=== PATIENT | female | born 1985 | race Caucasian/White ===

== ENCOUNTER 2024-11-16 15:39 | Outpatient (OUT) | payer OTHER, SELFPAY ==
--- NOTE | 2024-11-16 15:48 | US_ITS ---
[address] [address] Patient Name: DOROTHEA SMILEY MRN: [id number] date: 1985 Sex: F Assigned Patient Location: [place] Current Patient Location: Accession/Order Number: [id number] Exam Date: 11/16/2024 16:05 Report Date: 11/17/2024 06:13 At the request of: SCOTT FRANKLIN Procedure: US pelvis transvaginal EXAMINATION: US pelvis transvaginal HISTORY: Ovulation Pain [; right pelvic pain COMPARISON: Ultrasound pelvis 07/22/2022 TECHNIQUE: Transabdominal and/or transvaginal sonographic examination was performed as indicated by examination type. FINDINGS: UTERUS: Normal size and appearance. Uterus size: 9.7 x 5.4 x 6.0 cm ENDOMETRIUM: Normal homogeneous appearance. Endometrial thickness: 11 mm RIGHT OVARY: Contains a hypoechoic, slightly irregular 2.1 cm cyst with some internal echoes and surrounding hypervascularity. Trace amount of free fluid within right adnexa. Duplex Doppler demonstrates normal waveform and flow; resistive index 0.5. Ovary size: 4.5 x 3.3 x 3.6 cm LEFT OVARY: Prior oophorectomy CUL-DE-SAC: Unremarkable. No significant free fluid. BLADDER: Unremarkable. OTHER: None. US/US pelvis transvaginal IMPRESSION: 1. Nonspecific right ovarian cyst; corpus lutein cyst from very early versus collapsing complex cyst. Consider follow-up ultrasound evaluation in 6 weeks to document regression. Electronically authenticated by: ISSA CADENA Date: 11/17/2024 06:13
== END 2024-11-16 15:40 | disposition home or self-care (01) ==
LOC: US 15:42
PROVIDERS: Visit Provider Obstetrics & Gynecology
DX: N94.0 Mittelschmerz (principal); N83.291 Other ovarian cyst, right side
CPT/HCPCS: 76830

== ENCOUNTER 2024-11-17 15:10 | Outpatient (OUT) | payer OTHER, SELFPAY ==
[2024-11-17 15:50] LABS: HCG Quantitative <1 mIU/mL
== END 2024-11-17 15:11 | disposition home or self-care (01) ==
LOC: LAB 15:12
PROVIDERS: Visit Provider Obstetrics & Gynecology
DX: R10.2 Pelvic and perineal pain (principal); N92.6 Irregular menstruation, unspecified; R10.84 Generalized abdominal pain; R19.7 Diarrhea, unspecified
CPT/HCPCS: 36415; 84702

== ENCOUNTER 2024-12-15 10:59 | Outpatient (OUT) | payer OTHER, SELFPAY ==
--- NOTE | 2024-12-15 11:43 | P.GSHP_ITS ---
History of Present Illness History of Present Illness Chief complaint: request for sterilization, pelvic pain Narrative: Patient presents for presurgical testing. The patient reports pelvic pain with ovulation and a desire for sterilization. The patient denies abdominal pain at the present time. She denies nausea, vomiting, dysuria, hematuria, or any other complaints. Review of Systems ROS Narrative REVIEW OF SYSTEMS: Negative except as stated in HPI, ten or more systems reviewed. Constitutional: No fever, chills, weakness ENT: No sore throat or epistaxis Cardiovascular: No edema, chest pain, palpitations, or activity intolerance Respiratory: No shortness of breath, cough, or wheezing Musculoskeletal: No joint pain or swelling Genitourinary: No dysuria or hematuria Neurological: No numbness, tingling, weakness, or headache Psychiatric: No mood changes [facility] Medical History (Updated 12/15/24 @ 11:22 by Padmini Bello NP) History of blood transfusion ?Z92.89 - Personal history of other medical treatment (ICD-10) PTSD (post-traumatic stress disorder) ?F43.10 - Post-traumatic stress disorder, unspecified (ICD-10) MVP (mitral valve prolapse) ?I34.1 - Nonrheumatic mitral (valve) prolapse (ICD-10) Postoperative nausea and vomiting ?R11.2 - Nausea with vomiting, unspecified (ICD-10) ?Z98.890 - Other specified postprocedural states (ICD-10) Delayed recovery from anesthesia Insulin resistance ?E88.819 - Insulin resistance, unspecified (ICD-10) Narcolepsy ?G47.419 - Narcolepsy without cataplexy (ICD-10) Lactose intolerance ?E73.9 - Lactose intolerance, unspecified (ICD-10) Abdominal pain ?R10.9 - Unspecified abdominal pain (ICD-10) Pelvic pain ?R10.2 - Pelvic and perineal pain (ICD-10) Request for sterilization ?Z30.2 - Encounter for sterilization (ICD-10) Surgical History (Updated 12/15/24 @ 11:22 by Padmini Bello NP) S/P unilateral salpingo-oophorectomy ?Z90.721 - Acquired absence of ovaries, unilateral (ICD-10) H/O umbilical hernia repair ?Z98.890 - Other specified postprocedural states (ICD-10) ?Z87.19 - Personal history of other diseases of the digestive system (ICD-10) History of breast augmentation ?Z98.82 - Breast implant status (ICD-10) History of section ?Z98.891 - History of uterine scar from previous surgery (ICD-10) History of tubal ligation ?Z98.51 - Tubal ligation status (ICD-10) History of laparoscopy ?Z98.890 - Other specified postprocedural states (ICD-10) Family History (Updated 12/15/24 @ 11:19 by Padmini Bello NP) Other Family history of diabetes mellitus Family history of hypertension Social History (Updated 12/15/24 @ 11:17 by Padmini Bello NP) Within the past year, how often did you have a drink containing alcohol: never Score interpretation: A score less than 3 is consistent with normal alcohol consumption. Smoking status: Never smoker Non-prescribed substance use: cannabis (any form) Previous occupational history: yoga Highest level of school completed/degree received: high school graduate Meds Home Medications and Allergies Home Medications ?Medication ?Instructions ?Recorded ?Confirmed ?Type dextroamphetamine-amphetamine ER 20 mg PO DAILY 12/15/24 12/15/24 History 20 mg 24hr capsule,extend release fluoxetine 10 mg capsule 10 mg PO QPM 12/15/24 12/15/24 History metformin 500 mg tablet,extended 500 mg PO DAILY 12/15/24 12/15/24 History release 24 hr Allergies Allergy/AdvReac Type Severity Reaction Status Date / Time lactose AdvReac Nausea Verified 12/15/24 11:15 Exam Narrative Exam Narrative: Constitutional: Awake, alert, comfortable, well-appearing, nontoxic, interactive, vital signs as charted Head: Normocephalic, atraumatic Eyes: Conjunctiva and lids normal to inspection ENT: Naris patent, posterior oropharynx clear, oral mucosa moist Neck: Supple, normal appearance, normal range of motion, no meningeal signs, no lymphadenopathy Respiratory: No respiratory distress, breath sounds clear Cardiovascular: Regular rate and rhythm, strong and regular heart tones Abdomen: Nontender, normal bowel sounds, soft, no CVA tenderness Musculoskeletal: Normal gait, no swelling or edema Skin: No rashes or induration, no lesions, only visible skin inspected Neuro: No neurological deficits, normal sensation Psychiatric: Oriented ?3, normal affect Assessment and Plan Assessment and Plan (1) Request for sterilization: (2) Pelvic pain: Plan Robot-assisted laparoscopic salpingectomy and removal of Filshie clip scheduled with Dr. Mireles December 24, 2024.
== END 2024-12-15 11:00 | disposition home or self-care (01) ==
LOC: PST 10:59
PROVIDERS: Visit Provider Obstetrics & Gynecology
DX: Z01.818 Encounter for other preprocedural examination (principal); R10.2 Pelvic and perineal pain
CPT/HCPCS: G0463

== ENCOUNTER 2024-12-24 06:08 | Day surgery (SDC) | payer OTHER, SELFPAY ==
[2024-12-15 11:33] VITALS: BP 130/84; PULSE 85; TEMP 36.3; O2SAT 99; BMI 28.3
[2024-12-24] VITALS (10 sets, daily range): BP systolic 97–144; BP diastolic 57–87; PULSE 70–93; TEMP 36.3–36.7; O2SAT 98–100; BMI 28.3
--- OUTSIDE RECORDS SUMMARY | 2024-12-24 06:13 | XMS_ITS | CCD ---
Author Organization [facility] Care Team Providers Care Chainstitch Seat Joiner Name Role Phone Unavailable Unavailable Unavailable Duc, Jadiel M Unavailable Unavailable Duc, Jadiel M Unavailable Unavailable Duc, Jadiel M Unavailable Unavailable Baker, Jadiel M Unavailable Unavailable Duc, Jadiel M Unavailable Unavailable Baker, Jadiel M Unavailable Unavailable CandidoSeanYajaira S Unavailable Unavailable Candido Yajaira S Unavailable Unavailable FELICIA MOURA Primary Care Unavailable Unavailable Primary Care Provider UnavailCAROL Wan Unavailable RADHA KEN Unavailable WILBER RACHEL Unavailable REQUEST, NONE LISTED Primary Care Unavaila jese CADENA, DR ISSA Bowens Consulting Unavailable ALINE, DR CHAVEZ Attending Unavailable ALINE, DR CHAVEZ Admitting Unavailable TITI PINA Unavailable CHRISTOS JACKMAN Unavailable LINCOLN ANGEL Unavailable ROSLYN RODRIGUEZ Unavailable MADHAVI CHRISTIAN Unavailable NON STAFF Primary Care Provider UnavailMD Garo Ordonez Attending Provider RICHY Rodriguez Primary Care Provider MD Garo Finley Attending Provider [phone] Roslyn Rodriguez Primary Care Unavailable Garo Finley Admitting Unavailable Garo Finley Attending Unavailable NON STAFF Primary Care Unavailable Garo Finley Admitting Unavailable Garo Finley Attending Unavailable Unavailable Primary Care Provider UnavailMADALYN Drake Attending Unavailable OMID MIRELES Attending Unavailable OMID MIRELES Referring Unavailable Allergies Allergy Classification Reported Allergen(s) Allergy Type Date of Onset Reaction(s) Facility (2 sources) lactose; Translations: [Unknown] Propensity to adverse reactions to drug 6 [facility] Work Phone: (6 sources) Lactose (non-medical use) Propensity to adverse reactions 6 [facility] Medications Current Medications Medication Drug Class(es) Dates Sig (Normalized) Sig (Original) 24 hr amphetamine aspartate 5 mg / amphetamine sulfate 5 mg / dextroamphetamine saccharate 5 mg / dextroamphetamine sulfate 5 mg extended release oral capsule (20 sources) Central Nervous System Stimulant Start: 11-08-2024 take 1 capsule by mouth every twenty-four hours Amphetamine-Dext roamphet ER 20 MG 1 capsule in the morning Orally Once a day Oct, Active Start: 03-24-2024 End: 11-22-2024 take 1 capsule by mouth once daily in the morning Adderall XR 30 MG 24 hr capsule Take 1 capsule by mouth once a day IN THE MORNING. 04/02/2024 11/22/2024 Discontinued Start: 07-18-2023 take 1 capsule by mo ut every twenty-four hours Adderall XR 30 MG 1 capsule in the morning Orally Once a day Mar, Active Start: 05-23-2023 take 1 capsule by mo uth every twenty-four hours Adderall XR 20 MG 1 capsule in the morning Orally Once a day for 30 days May, Active Start: 04-16-2023 take 1 capsule by mo uth every twenty-four hours Adderall XR 20 MG 1 capsule in the morning Orally Once a day for 30 days March, Active Start: 01-27-2023 take 1 capsule by mo ut every twenty-four hours Adderall XR 20 MG 1 capsule in the morning Orally Once a day for 30 days Jan, Active Start: 11-12-2022 take 1 capsule by mo uth every twenty-four hours Adderall XR 20 MG 1 capsule in the morning Orally Once a day for 30 days Oct, Not-Taking armodafinil 250 mg oral tabl et (4 sources) Start: 08-03-2024 Armodafinil Ac tive 250 MG PO Every morning August 03, 2024 12:00am To 1/2 pill for the first 4 days then increase to a whole pill if tolerated take 1 tablet by roselia th every twenty-four hours Armodafinil 250 MG 1 tablet in the morning Orally Once a day Active atomoxetine 40 mg oral capsule (4 sources) Norepinephrine Reuptake Inhibitor Start: 12-13-2022 take 1 capsule by mouth every twenty-four hours Strattera 40 MG 1 capsule in the morning Orally Once a day for 30 day(s) Dec, Active Breast Pump Device (1 source) Start: 09-18-2020 Breast Pump Device by Miscellaneous route as needed 1 Device 0 09/18/2020 Active buPROPion hydrochloride 75 mg oral tablet (7 sources) Aminoketone Start: 04-09-2024 End: 11-22-2024 take 1 tablet by mouth once daily buPROPion (Wellbutrin) 75 MG tablet Take 75 mg by mouth Daily 04/09/2024 11/22/2024 Discontinued FLUoxetine 10 mg oral capsule (8 sources) Serotonin Reuptake Inhibitor Start: 11-08-2024 take 1 capsule by mouth once daily FLUoxetine (PROzac) 10 MG capsule Take 10 mg by mouth Daily 11/08/2024 Active fluticasone propionate 0.05 mg/actuat metered dose nasal spray (1 source) Corticosteroid Start: 10-06-2020 fluticasone propionate (FLONASE) 50 mcg/actuation nasal spray 2 Sprays 0 10/06/2020 Active metaxalone 800 mg oral tablet (1 source) Start: 10-06-2020 metaxalone (SKELAXIN) 800 mg tablet 800 mg 0 10/06/2020 Active 24 hr metFORMIN hydrochloride 500 mg extended release oral tablet (3 sources) Biguanide Start: 11-22-2024 End: 12-22-2024 take 1 tablet by mouth every twenty-four hours in the morning metFORMIN XR (Glucophage-XR) 500 MG 24 hr tablet Indications: Pelvic pain in female , Generalized abdominal pain Take 1 tablet (500 mg) by mouth in the morning and 1 tablet (500 mg) before bedtime. Do not crush, chew, or split.. 60 tablet 6 11/22/2024 12/22/2024 Active Zbevygbq-Jq-Fvy-Fe -FA () Tablet (2 sources) Start: 05-29-2020 take 1 tablet by mouth once daily Nbhpmqhq-Nc-Axh-F e-FA () Tablet Indications: Take 1 Tab by mouth daily at 6pm 30 Tab 11 05/29/2020 Active sertraline 25 mg oral tablet (20 sources) Serotonin Reuptake Inhibitor Start: 08-04-2024 End: 11-22-2024 take 3 tablets by mouth once daily sertraline (Zoloft) 25 MG tablet TAKE 3 TABLETS BY MOUTH once a day 08/04/2024 11/22/2024 Discontinued Start: 06-10-2024 Sertraline Act paola 75 MG PO June 10, 2024 12:00am Start: 04-21-2020 take 1 tablet by roselia th once daily sertraline (ZOLOFT) 50 mg tablet Take 1 Tab by mouth daily 90 Tab 2 04/21/2020 Active take 3 tablets by mo uth every twenty-four hours Sertraline HCl 25 MG 3 tablets Orally Once a day Active take 3 tablets by mo uth every twenty-four hours take 1 tablet by roselia th every twenty-four hours Zoloft 100 MG 1 tablet Orally Once a day for 5 days pt is traveling and forgot meds this is to cover her while traveling Active Completed/Discontinued Medications Medication Drug Class(es) Dates Sig (Normalized) Sig (Original) acetaminophen 500 mg oral tablet (2 sources) Start: 09-28-2020 End: 09-28-2020 take 1 tablet by mouth every six hours as needed acetaminophen (TYLENOL EXTRA STR) tablet 1,000 mg acetaminophen (T YLENOL) 650 mg suppository Insert 1 Suppository rectally every 6 hours 0 Active modafinil 200 mg oral tablet (2 sources) Sympathomimetic-like Agent Start: 07-20-2024 End: 08-03-2024 take 200 mg by mouth once daily Modafinil Discontinued 200 MG PO Daily 30 July 20, 2024 12:00am August 03, 2024 4:44pm (17 sources) Not-Taking Active Problems Active Problems Problem Classification Problem Date Documented Da te Episodic/Chronic Abdominal pain (20 sources) Pelvic and perineal pain; Translations: [Pain in female pelvis] Onset: 07-22-2022 Episodic Anxiety disorders (20 sources) Posttraumatic stress disorder; Translations: [Post-traumatic stress disorder, unspecified] Onset: 03-22-2022 Resolved: 03-22-2022 Chronic Blindness and vision defects (20 sources) Bilateral myopia of eyes; Translations: [Myopia, bilateral] Episodic Disorders of teeth and jaw (3 sources) Chronic gingivitis, plaque induced Onset: 04-25-2022 Resolved: 04-25-2022 Chronic Disorders of teeth and jaw (20 sources) Dental caries, unspecified; Translations: [Dental caries on smooth surface penetrating into pulp] Onset: 04-25-2022 Resolved: 06-11-2022 Episodic Headache; including migraine (3 sources) Headache; Translations: [Headache in , antepartum, third trimester] Onset: 09-28-2020 09-28-2020 Episodic Miscellaneous mental health disorders (18 sources) Dream anxiety disorder; 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-2024 Chronic Other complications of (2 sources) Multigravida of advanced maternal age; Translations: [AMA (advanced maternal age) multigravida 35+] Onset: 09-20-2020 09-20-2020 Episodic Other endocrine disorders (1 source) Polyglandular dysfunction, unspecified; Translations: [Polyglandular dysfunction, unspecified] Onset: 11-30-2024 Chronic Other endocrine disorders (2 sources) Disorder of endocrine system; Translations: [Endocrine disorder, unspecified] 11-22-2024 Episodic Other gastrointestinal disorders (2 sources) Diarrhea; Translations: [Diarrhea, unspecified] 11-18-2024 Episodic Other hematologic conditions (4 sources) H/O: anemia - iron deficient; Translations: [Personal history of diseases of the blood and blood-forming organs and certain disorders involving the immune mechanism] 06-10-2024 Episodic Other hereditary and degenerative nervous system conditions (4 sources) Restless legs; Translations: [Restless legs syndrome] 06-10-2024 Chronic Other hereditary and degenerative nervous system conditions (3 sources) Restless legs syndrome; Translations: [Restless legs syndrome (RLS)] 06-10-2024 Chronic Other nervous system disorders (20 sources) Attention and concentration deficit; Translations: [Impaired concentration] Onset: 05-31-2022 Resolved: 05-31-2022 Chronic Other nervous system disorders (20 sources) Reduced concentration; Translations: [Attention and concentration deficit] Chronic Other nervous system disorders (4 sources) Narcolepsy without cataplexy ; 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] 06-10-2024 Chronic Other nervous system disorders (6 sources) Narcolepsy without cataplexy; Translations: [Narcolepsy, without cataplexy] Onset: 09-20-2024 06-10-2024 Chronic Other nervous system disorders (4 sources) Impaired cognition; Translations: [Other symptoms and signs involving cognitive functions and awareness] 06-10-2024 Episodic Other nutritional; endocrine; and metabolic disorders (20 sources) Obesity; Translations: [Obesity, unspecified] Chronic Other nutritional; endocrine; and metabolic disorders (1 source) Obesity, unspecified; Translations: [Obesity] Chronic Other screening for suspected conditions (not mental disorders or infectious disease) (1 source) Encounter for screening for dental disorders Episodic Residual codes; unclassified (4 sources) Sleep paralysis; Translations: [Other sleep disorders] 06-10-2024 Chronic Residual codes; unclassified (5 sources) Other sleep disorders; Translations: [Sleep related movement disorder, unspecified] 06-10-2024 Chronic Residual codes; unclassified (3 sources) Gestation period, 33 weeks; Translations: [33 weeks gestation of ] Onset: 09-28-2020 09-28-2020 Episodic Residual codes; unclassified (17 sources) Insomnia; Translations: [Insomnia, unspecified] Episodic Residual codes; unclassified (17 sources) Disturbance in sleep behavior; Translations: [Sleep disorder, unspecified] Episodic Screening and history of mental health and substance abuse codes (20 sources) Depression screening positive; Translations: [Encounter for screening for depression] Episodic Unclassified (2 sources) H/O: blood transfusion; Translations: [History of blood transfusion] Onset: 12-01-2016 09-18-2020 Past or Other Problems Problem Classification Problem Date Documented Date Episodic/Chronic Malaise and fatigue (1 source) Other fatigue; Translations: [Other fatigue] Onset: 06-10-2024 Episodic Other complications of (3 sources) High risk ; Translations: [Supervision of high-risk of elderly multigravida] Onset: 04-20-2020 09-28-2020 Episodic Other complications of (3 sources) Uterine scar from previous surgery in , childbirth and the puerperium; Translations: [Uterine scar from previous delivery] Onset: 04-20-2020 09-28-2020 Episodic Other connective tissue disease (1 source) Ganglion of wrist; Translations: [Ganglion cyst of wrist] Onset: 07-17-2016 07-17-2016 Episodic Other female genital disorders (3 sources) H/O: premature delivery; Translations: [Hx of delivery, currently ] Onset: 04-20-2020 09-28-2020 Episodic Other hematologic conditions (4 sources) Personal history of diseases of the blood and blood-forming organs and certain disorders involving the immune mechanism; Translations: [Personal history of diseases of blood and blood-forming organs] Onset: 06-10-2024 06-10-2024 Episodic Residual codes; unclassified (6 sources) Personal history of other complications of , childbirth and the puerperium; Translations: [History of placenta abruption] Onset: 04-20-2020 09-28-2020 Episodic Results Test Name Value Interpretation Reference Range Facility C peptide post fast [Mass/Vo l]on 11-30-2024 C-Peptide, S 1.9 ng/mL Normal 1.1 - 4.4 [facility] Comment on above: Result Comment: NOTE ADDITIONAL INFORMATION Reference interval applies to fasting patients. Test Performed by: [facility] [address] [place] [address] Carcass Washer: Svetlana Morocho Ph.D.; CLIA# [id number] Performed By: #### 2 345-7, 2839-9, 3016-3, HA1C, 3024-7, 3051-0, 79437-9, 2276-4, 2243-4, THYRAB #### [facility] ([id number]) [address] [place] [address], [address] [place] [address] #### 63910-6, 61464-7, 35473-2, 2258-2, 3052-8, GO #### [facility] ([id number]) [address] [place] [address], [place] [address] Cortisol [Mass/Vol]on 2023 CORTISOL 8.7 ug/dL Normal [facility] Comment on above: Result Comment: Due to the diurnal variation of cortisol levels in normal subjects, all cortisol measurements should be referenced to the time of day of sample collection. AM Cortisol Age>=6 6.7-22.4 ug/dL PM Cortisol Age>=6 <10 ug/dL Performed By: #### 2 345-7, 2839-9, 3016-3, HA1C, 3024-7, 3051-0, 41077-8, 2276-4, 2243-4, THYRAB #### [facility] ([id number]) [address] [facility], [address] [place] [address] #### 32001-3, 07118-0, 57186-3, 2258-2, 3052-8, GO #### [facility] ([id number]) [address] [place] [address] DHEA-S [Mass/Vol]on 11-30-20 24 DHEA S 227 ug/dL Normal 23-266 [facility] Comment on above: Performed By: #### 2 345-7, 2839-9, 3016-3, HA1C, 3024-7, 3051-0, 91864-5, 2276-4, 2243-4, THYRAB #### [facility] ([id number]) [address], [address] [place] [address] #### 98634-2, 19642-5, 76158-6, 2258-2, 3052-8, GO #### [facility] ([id number]) [address] [place] [address] E1 [Mass/Vol]on 11-30-2024 Estrone, S 45 pg/mL Normal [facility] Comment on above: Result Comment: NOTE REFERENCE VALUE Premenopausal :17-200 Postmenopausal : 7-40 ADDITIONAL INFORMATION This test was developed and its performance characteristics determined by [facility] in a manner consistent with CLIA requirements. This test has not been cleared or approved by the U.S. Food and Drug Administration. Test Performed by: [facility] [address] [place] [address] Carcass Washer: Svetlana Morocho Ph.D.; CLIA# [id number] Performed By: #### 2 345-7, 2839-9, 3016-3, HA1C, 3024-7, 3051-0, 72267-8, 2276-4, 2243-4, THYRAB #### [facility] ([id number]) [address] [place] [address], [address] [place] [address] #### 99474-0, 76420-3, 71341-6, 2258-2, 3052-8, GO #### [facility] ([id number]) [address] [place] [address], [place] [address] E2 [Mass/Vol]on 11-30-2024 ESTRADIOL 36.7 pg/mL Normal [facility] Comment on above: Result Comment: NON- FEMALES Mid follicular: 25-115 pg/mL Ovulatory Peak: 32.1-517 pg/mL Mid Luteal: 36.5-246 pg/mL Post-Menopausal Females: <15.0-25.1 pg/mL (Not on hormone therapy) The Access Sensitive Estradiol assay results are not intended to be used to measure the effectiveness of exogeneous Estradiol supplementation, for example, when the patient is on hormone replacement therapy. The presence of estradiol drug analogues and their metabolites could have an impact on estradiol recovery when using this assay. Performed By: #### 2 345-7, 2839-9, 3016-3, HA1C, 3024-7, 3051-0, 60884-5, 2276-4, 2243-4, THYRAB #### [facility] ([id number]) [address] [place] [address], [address] [place] [address] #### 07540-2, 96213-1, 41247-7, 2258-2, 3052-8, GO #### [facility] ([id number]) [address] [place] [address] FERRITINon 11-30-2024 Ferritin [Mass/Vol] 22 ng/mL Normal 11-307 [facility] Comment on above: Performed By: #### 2 345-7, 2839-9, 3016-3, HA1C, 3024-7, 3051-0, 63436-5, 2276-4, 2243-4, THYRAB #### [facility] ([id number]) [address] [place] [address], [address] [place] [address] #### 91742-9, 85048-0, 05172-5, 2258-2, 3052-8, GO #### [facility] ([id number]) [address] [place] [address] FREE T3on 11-30-2024 Free T3 [Mass/Vol] 3.32 pg/mL Normal 2.50-3.90 [facility] Comment on above: Performed By: #### 2 345-7, 2839-9, 3016-3, HA1C, 3024-7, 3051-0, 20685-5, 2276-4, 2243-4, THYRAB #### [facility] ([id number]) [address] [place] [address], [address] [place] [address] #### 62859-3, 58169-9, 47242-2, 2258-2, 3052-8, GO #### [facility] ([id number]) [address] [place] [address] FREE T4on 11-30-2024 Free T4 [Mass/Vol] 0.94 ng/dL Normal 0.61-1.60 [facility] Comment on above: Performed By: #### 2 345-7, 2839-9, 3016-3, HA1C, 3024-7, 3051-0, 88463-9, 2276-4, 2243-4, THYRAB #### [facility] ([id number]) [address] [place] [address], [address] [place] [address] #### 61178-6, 95600-4, 01696-2, 2258-2, 3052-8, GO #### [facility] ([id number]) [address] [place] [address] GLUCOSEon 11-30-2024 Glucose [Mass/Vol] 93 mg/dL Normal 65-99 [facility] Comment on above: Performed By: #### 2 345-7, 2839-9, 3016-3, HA1C, 3024-7, 3051-0, 55555-6, 2276-4, 2243-4, THYRAB #### [facility] ([id number]) [address] [place] [address], [address] [place] [address] #### 71770-3, 94751-4, 26779-9, 2258-2, 3052-8, GO #### [facility] ([id number]) [address] [place] [address] GLUCOSE ([place])on 2023 Glucose [Mass/Vol] 93 mg/dL 65 - 99 mg/dL [facility] Comment on above: PERFORMED AT [facility] [address],[place] [address] [facility] HGB A1C (GLYCO-HGB)on 2023 Glucose [Mass/Vol] 100 mg/dL Normal [facility] Comment on above: Performed By: #### 2 345-7, 2839-9, 3016-3, HA1C, 3024-7, 3051-0, 94579-7, 2276-4, 2243-4, THYRAB #### [facility] ([id number]) [address] [place] [address], [address] [place] [address] #### 37965-7, 50380-6, 17839-2, 2258-2, 3052-8, GO #### [facility] ([id number]) [address] [place] [address] HbA1c (Bld) [Mass fraction] 5.1 % Normal 4.4-5.6 [facility] Comment on above: Result Comment: NOTE ADA Guidelines Result HgbA1c Normal : less than 5.7 % Prediabetes : 5.7 % to 6.4 % Diabetes : > 6.4 % Use with caution in patients with abnormal hemoglobin variants as the half-life of red blood cells and in vivo glycation rates are affected. Performed By: #### 2 345-7, 2839-9, 3016-3, HA1C, 3024-7, 3051-0, 05303-4, 2276-4, 2243-4, THYRAB #### [facility] ([id number]) [address] [facility], [address] [place] [address] #### 91146-4, 47204-0, 99620-0, 2258-2, 3052-8, GO #### [facility] ([id number]) [address] [place] [address] [place] [address] Insulin Qnon 11-30-2024 INSULIN 5.02 uIU/mL Normal 1.00-23.00 [facility] Comment on above: Result Comment: Ref. range is for FASTING NON-DIABETIC POPULATION. Performed By: #### 2 345-7, 2839-9, 3016-3, HA1C, 3024-7, 3051-0, 78299-4, 2276-4, 2243-4, THYRAB #### [facility] ([id number]) [address], [address] [place] [address] #### 14847-5, 63573-4, 43577-8, 2258-2, 3052-8, GO #### [facility] ([id number]) [address] [place] [address] [facility] ORDERon 024 TEST NAME FV125 CALCITRIOL 1,2 5 DIHYDROXYVITAMIN D Normal [facility] Comment on above: Performed By: #### 2 345-7, 2839-9, 3016-3, HA1C, 3024-7, 3051-0, 52116-9, 2276-4, 2243-4, THYRAB #### [facility] ([id number]) [address], [address] [place] [address] #### 83596-1, 36439-5, 35025-7, 2258-2, 3052-8, GO #### [facility] ([id number]) [address] [place] [address] TEST RESULT SEE COMMENTS 025 08:25 PM Normal [facility] Comment on above: Result Comment: NOTE Test Result Flag Unit RefValue --- CALCITRIOL 1,25 diOH VitD Vitamin D,1,25 (OH) 2, Total 44 pg/mL 18-72 Reference Ranges for Vitamin D, 1,25 (OH)2, Total pg/mL < 1 Year Not established 1-9 Years 31-87 10-13 Years 30-83 14-17 Years 19-83 > or = 18 Years 18-72 Vitamin D3, 1,25(OH)2 indicates both endogenous production and supplementation. Vitamin D2, 1,25(OH)2 is an indicator of exogenous sources, such as diet or supplementation. Interpretation and therapy are based on measurement of Vitamin D, 1,25 (OH)2, Total. Vitamin D3, 1,25 (OH) 2 44 pg/mL -- REFERENCE VALUE -- NO REFERENCE RANGE Vitamin D2, 1,25 (OH) 2 <8 pg/mL -- REFERENCE VALUE -- NO REFERENCE RANGE This test was developed and its analytical performance characteristics have been determined by [facility]. It has not been cleared or approved by FDA. This assay has been validated pursuant to the CLIA regulations and is used for clinical purposes. For additional information, please refer to http://education.[employer].awe.sm/faq/MFL372 (This link is being provided for informational/educational purposes only.) Test Performed by: [facility] [address] [place] [address] Performed By: #### 2 345-7, 2839-9, 3016-3, HA1C, 3024-7, 3051-0, 61677-8, 2276-4, 2243-4, THYRAB #### [facility] ([id number]) [address] [place] [address], [address] [place] [address] #### 46589-9, 85170-6, 89771-6, 2258-2, 3052-8, GO #### [facility] ([id number]) [address] [place] [address], [place] [address] Progesterone [Mass/Vol]on PROGESTERONE 0.5 ng/mL Normal [facility] Comment on above: Result Comment: FEMALES: 1st Tri: 4.7-50.7 ng/ml 2nd Tri: 19.4-45.3 ng/ml MENSTRUATING FEMALES: Follicular: 0.3-1.5 ng/ml Mid Luteal: 5.2-18.6 ng/ml [place]: <0.1-0.8 ng/ml Performed By: #### 2 345-7, 2839-9, 3016-3, HA1C, 3024-7, 3051-0, 47967-5, 2276-4, 2243-4, THYRAB #### [facility] ([id number]) [address] [place] [address], [address] [place] [address] #### 57805-1, 15693-8, 34214-8, 2258-2, 3052-8, GO #### [facility] ([id number]) [address] [place] [address], [place] [address] Serotonin (S) [Mass/Vol]on SEROTONIN 84 ng/mL Normal 50-220 [facility] Comment on above: Result Comment: NOTE TEST INFORMATION: Serotonin, Serum This test was developed and its performance characteristics determined by [facility]. It has not been cleared or approved by the US Food and Drug Administration. This test was performed in a CLIA certified laboratory and is intended for clinical purposes. Performed By: [facility] [address] [place] [address] Playroom Attendant: Shabbir Whiteside MD, PhD CLIA Number: [id number] Performed By: #### 2 345-7, 2839-9, 3016-3, HA1C, 3024-7, 3051-0, 24873-5, 2276-4, 2243-4, THYRAB #### [facility] ([id number]) [address], [address] [place] [address] #### 15229-6, 22869-3, 08787-1, 2258-2, 3052-8, GO #### [facility] ([id number]) [address] [place] [address] Sex hormone binding globulin [Moles/Vol]on 11-30-2024 SEX HORMONE BINDING GLOBULIN 45.4 nmol/L Normal 18.2-135.5 [facility] Comment on above: Result Comment: ---- PT TYPE AGE RANGE MALES 20-50Y 13.3-89.5 mmol/L FEMALES 20-46Y 18.2-135.5 mmol/L FEMALES POSTMENO 47-91Y 16.8-125.2 mmol/L Performed By: #### 2 345-7, 2839-9, 3016-3, HA1C, 3024-7, 3051-0, 74673-3, 2276-4, 2243-4, THYRAB #### [facility] ([id number]) [address] [facility] [facility] [facility] [address] [place] [address] #### 88771-1, 14778-4, 84042-6, 2258-2, 3052-8, GO #### [facility] ([id number]) [address] [place] [address] T3.reverse [Mass/Vol]on 11-02 T3 (Triiodothyronine), Reverse, S 22 ng/dL Normal 10-24 [facility] Comment on above: Result Comment: NOTE ADDITIONAL INFORMATION This test was developed and its performance characteristics determined by [facility] in a manner consistent with CLIA requirements. This test has not been cleared or approved by the U.S. Food and Drug Administration. Test Performed by: [facility] [address] [place] [address] Carcass Washer: Svetlana Morocho Ph.D.; CLIA# [id number] Performed By: #### 2 345-7, 2839-9, 3016-3, HA1C, 3024-7, 3051-0, 87243-2, 2276-4, 2243-4, THYRAB #### [facility] ([id number]) [address] [facility], [address] [place] [address] #### 65371-6, 60636-9, 54350-1, 2258-2, 3052-8, GO #### [facility] ([id number]) [address] [place] [address] THYROID ANTIBODIESon 024 Thyroglobulin Ab Qn [IU]/mL Normal <4.0 [facility] Comment on above: Performed By: #### 2 345-7, 2839-9, 3016-3, HA1C, 3024-7, 3051-0, 71603-6, 2276-4, 2243-4, THYRAB #### [facility] ([id number]) [address] [facility], [address] [place] [address] #### 86230-7, 69680-5, 99002-4, 2258-2, 3052-8, GO #### [facility] ([id number]) [address] [place] [address] TPO Ab Qn [IU]/mL Normal <10 [facility] Comment on above: Performed By: #### 2 345-7, 2839-9, 3016-3, HA1C, 3024-7, 3051-0, 69698-2, 2276-4, 2243-4, THYRAB #### [facility] ([id number]) [address] [facility], [address] [place] [address] #### 14709-4, 61401-3, 94328-8, 2258-2, 3052-8, GO #### [facility] ([id number]) [address] [place] [address] TSH Qnon 11-30-2024 TSH 0.74 uIU/mL Normal 0.49-4.67 [facility] Comment on above: Performed By: #### 2 345-7, 2839-9, 3016-3, HA1C, 3024-7, 3051-0, 72537-1, 2276-4, 2243-4, THYRAB #### [facility] ([id number]) [facility] [facility], [address] [place] [address] #### 33600-4, 69786-7, 36524-6, 2258-2, 3052-8, GO #### [facility] ([id number]) [address] [place] [address] Testosterone free and total panel [Mass/Vol]on 11-30-2024 Testosterone [Mass/Vol] 17 ng/dL Normal 8-60 [facility] Comment on above: Result Comment: NOTE ADDITIONAL INFORMATION Testing performed by Liquid Chromatography-Tandem Mass Spectrometry (LC-MS/MS). This test was developed and its performance characteristics determined by [facility] in a manner consistent with CLIA requirements. This test has not been cleared or approved by the U.S. Food and Drug Administration. Test Performed by: [facility] [address] [place] [address] [employer]cass Washer: Svetlana Morocho Ph.D.; CLIA# [id number] Performed By: #### 2 345-7, 2839-9, 3016-3, HA1C, 3024-7, 3051-0, 14766-8, 2276-4, 2243-4, THYRAB #### [facility] ([id number]) [address] [place] [address], [address] [place] [address] #### 44113-1, 20071-2, 29077-0, 2258-2, 3052-8, GO #### [facility] ([id number]) [address] [facility], [place] [address] TESTOSTERONE FREE 0.32 ng/dL Normal <0.13-0.98 [facility] Comment on above: Result Comment: NOTE ADDITIONAL INFORMATION This test was developed and its performance characteristics determined by [facility] in a manner consistent with CLIA requirements. This test has not been cleared or approved by the U.S. Food and Drug Administration. Performed By: #### 2 345-7, 2839-9, 3016-3, HA1C, 3024-7, 3051-0, 37146-7, 2276-4, 2243-4, THYRAB #### [facility] ([id number]) [address] [place] [address], [address] [place] [address] #### 10280-6, 65859-7, 18772-2, 2258-2, 3052-8, GO #### [facility] ([id number]) [address] [place] [address], [place] [address] Urinalysis macro (dipstick) panel (U)on 11-18-2024 Bilirubin, UA Negative Negative - 4(70) +++ mg/dL [facility] Blood, UA Negative Negative - 50 Seferino/mcL [facility] Clarity, UA Clear [facility] Healthcare Color, UA Yellow [facility] Glucose, UA Negative Negative - 2000(110) ++++ mg/dL [facility] Interpretation and review of laboratory results Abnormal [facility] Ketones, UA Negative Negative - 160(16) ++++ mg/dL [facility] Leukocytes, UA Positive Negative - 500+++ Lilliana/mcL [facility] Comment on above: small Nitrite, UA Negative Negative - Positive [facility] pH, UA 7 5 - 9 [facility] Protein, UA Negative Negative - 2000(20) ++++ mg/dL [facility] Spec Grav, UA 1.02 1 - 1.03 [facility] Urobilinogen, UA 0.2 0.2 - 12 mg/dL [facility] Iron [Mass/volume] in Serum or PlasmaOrdered By: Garo Finley on 06-10-2024 Iron [Mass/Vol] 111 ug/dL Normal 50-[address] [facility] Comment on above: Performed By: #### T SH3 wRFLX, FE and TIBC #### [address] Iron and TIBC Profileon 05-31 % Iron Saturation 31.7 % Normal 20-50 [facility] Comment on above: Performed By: #### T SH3 wRFLX, FE and TIBC #### [address] Total Iron Binding Capacity 350 ug/dL Normal 255-450 [facility] Comment on above: Performed By: #### T SH3 wRFLX, FE and TIBC #### [facility] [address] [place] [address] Iron binding capacity [Mass/ volume] in Serum or PlasmaOrdered By: Garo Finley on 06-10-2024 Iron binding capacity [Mass/Vol] 350 ug/dL 255-[address] [facility] Iron saturation [Mass Fracti on] in Serum or PlasmaOrdered By: Garo Finley on 06-10-2024 Iron saturation [Mass fraction] 31.7 % 20-[address] [facility] Thyroid Stim Hormone w/Rflxo n 06-10-2024 Thyroid Stim Hormone w/Rflx 0.78 u[iU]/mL Normal 0.45-5.33 [facility] Comment on above: Result Comment: PERF ORMED BY: [place] [address] PATHOLOGIST [employer]ITION[employer] MONITOR CAMI RAYA M.D. Performed By: #### T SH3 wRFLX, FE and TIBC #### [address] [place] [address] [facility] Thyrotropin [Units/volume] i n Serum or PlasmaOrdered By: Garo Finley on 06-10-2024 TSH Qn 0.78 m[IU]/L 0.45-5.[address] [facility] Transferrin [Mass/volume] in Serum or PlasmaOrdered By: Garo Finley on 06-10-2024 Transferrin [Mass/Vol] 250 mg/dL Normal 203-362 [facility] Comment on above: Performed By: #### T SH3 wRFLX, FE and TIBC #### [facility] [address] [place] [address] [facility] US PELVIS TRANSVAGon US PELVIS TRANSVAG EXAMINATION: US PELV IS TRANSVAG HISTORY: Pelvic and perineal pain ; chronic, intermittent right pelvic pain COMPARISON: No relevant comparison available. TECHNIQUE: Transabdominal and transvaginal sonographic examination. FINDINGS: UTERUS: Normal size and appearance. Small nabothian cysts within cervix. Uterus size: 8.5 6.0 x 5.3 cm ENDOMETRIUM: Normal homogeneous echotexture except for a few scattered punctate calcifications, likely dystrophic. Endometrial thickness: 12 mm RIGHT OVARY: Contains 2 adjacent cysts versus a septated cyst, 2.9 x 2.4 x 2.3 cm. Duplex Doppler demonstrates normal waveform and flow; resistive index 0.5. Ovary size: 5.0 x 2.6 x 2.7 cm LEFT OVARY: Not seen. CUL-DE-SAC: Small moderate free fluid in left adnexa and pelvic cul-de-sac, likely physiologic. BLADDER: Unremarkable. OTHER: None. IMPRESSION: 1. Right ovary contains 2 adjacent cysts versus a septated cyst which may contribute to patient's symptoms. Consider follow-up ultrasound evaluation 6 weeks to document resolution. Electronically authenticated by: ISSA CADENA Date: 2022-07-22 16:48 Normal [facility] COMPLETE BLOOD COUNT WITH DI FFERENTIALon 10-24-2020 BASOPHILS ABSOLUTE COUNT (10*3/UL) BY AUTOMATED COUNT 0.0 K/uL Normal 0.0-0.3 [facility] Comment on above: Performed By: #### L [id number] #### [facility] [address] [id number] Wilber Charles M.D. [employer] BASOPHILS RELATIVE PERCENT BY AUTOMATED COUNT 0.3 % Normal 0.0-2.0 [facility] Comment on above: Performed By: #### L [id number] #### [address] [address] Wilber Charles M.D. [employer] Eosinophils (Bld) [#/Vol] 0.2 10*3/uL Normal 0.0-0.5 [facility] Comment on above: Performed By: #### L [id number] #### [address] [address] Wilber Charles M.D. [employer] EOSINOPHILS RELATIVE PERCENT BY AUTOMATED COUNT 1.6 % Normal 0.0-5.0 [facility] Comment on above: Performed By: #### L [id number] #### [address] [address] Wilber Charles M.D. [employer] Erythrocyte distribution width (RBC) [Ratio] 13.4 % Normal <=15.0 [facility] Comment on above: Performed By: #### L [id number] #### [address] [address] Wilber Charles M.D. [employer] Hematocrit (Bld) [Volume fraction] 30.9 % Low 34.0-49.0 [facility] Comment on above: Performed By: #### L [id number] #### [address] [address] Wilber Charles M.D. [employer] Hemoglobin (Bld) [Mass/Vol] 10.7 g/dL Low 11.2-15.7 [facility] Comment on above: Performed By: #### L [id number] #### [address] [address] Wilber Charles M.D. [employer] Immature granulocytes (Bld) [#/Vol] 0.1 10*3/uL Normal 0.0-0.1 [facility] Comment on above: Performed By: #### L [id number] #### [address] [address] Wilber Charles M.D. [employer] Immature granulocytes/100 WBC (Bld) 0.6 % Normal <1.0 [facility] Comment on above: Performed By: #### L [id number] #### [address] [address] Wilber Charles M.D. [employer] LYMPHOCYTES ABSOLUTE COUNT (10*3/UL) BY AUTOMATED COUNT 1.2 K/uL Normal 0.9-4.1 [facility] Comment on above: Performed By: #### L [id number] #### [address] [address] Wilber Charles M.D. [employer] LYMPHOCYTES RELATIVE PERCENT BY AUTOMATED COUNT 12.2 % Low 14.0-51.0 [facility] Comment on above: Performed By: #### L [id number] #### [address] [address] Wilber Charles M.D. [employer] MCH (RBC) [Entitic mass] 32.2 pg Normal 26.0-34.0 [facility] Comment on above: Performed By: #### L [id number] #### [address] [address] Wilber Charles M.D. [employer] MCHC (RBC) [Mass/Vol] 34.6 g/dL Normal 30.7-35.5 [facility] Comment on above: Performed By: #### L [id number] #### [address] [address] Wilber Charles M.D. [employer] MCV (RBC) [Entitic vol] 93.1 fL Normal 80.0-100.0 [facility] Comment on above: Performed By: #### L [id number] #### [address] [address] Wilber Charles M.D. [employer] MEAN PLATELET VOLUME (FL) BY AUTOMATED COUNT 10.6 fL Normal 7.2-11.7 [facility] Comment on above: Performed By: #### L [id number] #### [address] [address] Wilber Charles M.D. [employer] MONOCYTES ABSOLUTE COUNT (10*3/UL) BY AUTOMATED COUNT 0.4 K/uL Normal 0.2-1.0 [facility] Comment on above: Performed By: #### L [id number] #### [address] [address] Wilber Charles M.D. [employer] MONOCYTES RELATIVE PERCENT BY AUTOMATED COUNT 4.4 % Normal 4.0-12.0 [facility] Comment on above: Performed By: #### L [id number] #### [address] [address] Wilber Charles M.D. [employer] NEUTROPHILS ABSOLUTE COUNT (10*3/UL) BY AUTOMATED COUNT 8.2 K/uL High 1.8-7.5 [facility] Comment on above: Performed By: #### L [id number] #### [address] [address] Wilber Charles M.D. [employer] NEUTROPHILS RELATIVE PERCENT BY AUTOMATED COUNT 80.9 % High 42.0-80.0 [facility] Comment on above: Performed By: #### L [id number] #### [address] [address] Wilber Charles M.D. [employer] PLATELETS (10*3/UL) BY AUTOMATED COUNT 209 K/uL Normal 140-400 [facility] Comment on above: Performed By: #### L [id number] #### [address] [address] Wilber Charles M.D. [employer] RBC (Bld) [#/Vol] 3.32 10*6/uL Low 3.95-5.26 [facility] Comment on above: Performed By: #### L [id number] #### [address] [address] Wilber Charles M.D. [employer] WBC (Bld) [#/Vol] 10.1 10*3/uL Normal 3.5-10.9 [facility] Comment on above: Performed By: #### L [id number] #### [address] [address] Wilber Charles M.D. [employer] WBC (Bld) [#/Vol] 0 /100 WBCs Normal <=0 [facility] Comment on above: Performed By: #### L [id number] #### [address] [address] Wilber Charles M.D. [employer] COMPLETE BLOOD COUNT WITH DI FFERENTIALon 10-23-2020 BASOPHILS ABSOLUTE COUNT (10*3/UL) BY AUTOMATED COUNT 0.0 K/uL Normal 0.0-0.3 [facility] Comment on above: Performed By: #### L [id number] #### [address] [address] Wilber Charles M.D. [employer] BASOPHILS RELATIVE PERCENT BY AUTOMATED COUNT 0.3 % Normal 0.0-2.0 [facility] Comment on above: Performed By: #### L [id number] #### [address] [address] Wilber Charles M.D. [employer] Eosinophils (Bld) [#/Vol] 0.1 10*3/uL Normal 0.0-0.5 [facility] Comment on above: Performed By: #### L [id number] #### [address] [address] Wilber Charles M.D. [employer] EOSINOPHILS RELATIVE PERCENT BY AUTOMATED COUNT 1.3 % Normal 0.0-5.0 [facility] Comment on above: Performed By: #### L [id number] #### [address] [address] Wilber Charles M.D. [employer] Erythrocyte distribution width (RBC) [Ratio] 13.0 % Normal <=15.0 [facility] Comment on above: Performed By: #### L [id number] #### [address] [address] Wilber Charles M.D. [employer] Hematocrit (Bld) [Volume fraction] 37.5 % Normal 34.0-49.0 [facility] Comment on above: Performed By: #### L AB406 #### [address] [address] Wilber Charles M.D. [employer] Hemoglobin (Bld) [Mass/Vol] 13.4 g/dL Normal 11.2-15.7 [facility] Comment on above: Performed By: #### L AB406 #### [address] [address] Wilber Charles M.D. [employer] Immature granulocytes (Bld) [#/Vol] 0.1 10*3/uL Normal 0.0-0.1 [facility] Comment on above: Performed By: #### L [id number] #### [address] [address] Wilber Charles M.D. [employer] Immature granulocytes/100 WBC (Bld) 0.6 % Normal <1.0 [facility] Comment on above: Performed By: #### L [id number] #### [address] [address] Wilber Charles M.D. [employer] LYMPHOCYTES ABSOLUTE COUNT (10*3/UL) BY AUTOMATED COUNT 2.2 K/uL Normal 0.9-4.1 [facility] Comment on above: Performed By: #### L [id number] #### [address] [address] Wilber Charles M.D. [employer] LYMPHOCYTES RELATIVE PERCENT BY AUTOMATED COUNT 21.7 % Normal 14.0-51.0 [facility] Comment on above: Performed By: #### L [id number] #### [address] [address] Wilber Charles M.D. [employer] MCH (RBC) [Entitic mass] 32.2 pg Normal 26.0-34.0 [facility] Comment on above: Performed By: #### L AB406 #### [address] [address] Wilber Charles M.D. [employer] MCHC (RBC) [Mass/Vol] 35.7 g/dL High 30.7-35.5 [facility] Comment on above: Performed By: #### L [id number] #### [address] [address] Wilber Charles M.D. [employer] MCV (RBC) [Entitic vol] 90.1 fL Normal 80.0-100.0 [facility] Comment on above: Performed By: #### L [id number] #### [address] [address] Wilber Charles M.D. [employer] MEAN PLATELET VOLUME (FL) BY AUTOMATED COUNT 10.8 fL Normal 7.2-11.7 [facility] Comment on above: Performed By: #### L [id number] #### [address] [address] Wilber Charles M.D. [employer] MONOCYTES ABSOLUTE COUNT (10*3/UL) BY AUTOMATED COUNT 0.7 K/uL Normal 0.2-1.0 [facility] Comment on above: Performed By: #### L [id number] #### [address] [address] Wilber Charles M.D. [employer] MONOCYTES RELATIVE PERCENT BY AUTOMATED COUNT 6.7 % Normal 4.0-12.0 [facility] Comment on above: Performed By: #### L [id number] #### [address] [address] Wilber Charles M.D. [employer] NEUTROPHILS ABSOLUTE COUNT (10*3/UL) BY AUTOMATED COUNT 7.1 K/uL Normal 1.8-7.5 [facility] Comment on above: Performed By: #### L [id number] #### [address] [address] Wilber Charles M.D. [employer] NEUTROPHILS RELATIVE PERCENT BY AUTOMATED COUNT 69.4 % Normal 42.0-80.0 [facility] Comment on above: Performed By: #### L [id number] #### [address] [address] Wilber Charles M.D. [employer] PLATELETS (10*3/UL) BY AUTOMATED COUNT 258 K/uL Normal 140-400 [facility] Comment on above: Performed By: #### L [id number] #### [address] [address] Wilber Charles M.D. [employer] RBC (Bld) [#/Vol] 4.16 10*6/uL Normal 3.95-5.26 [facility] Comment on above: Performed By: #### L [id number] #### [address] [address] Wilber Charles M.D. [employer] WBC (Bld) [#/Vol] 0 /100 WBCs Normal <=0 [facility] Comment on above: Performed By: #### L [id number] #### [address] [address] Wilber Charles M.D. [employer] WBC (Bld) [#/Vol] 10.3 10*3/uL Normal 3.5-10.9 [facility] Comment on above: Performed By: #### L [id number] #### [address] [address] Wilber Charles M.D. [employer] COMPREHENSIVE METABOLIC PANE [facility] 10-23-2020 Albumin [Mass/Vol] 3.5 g/dL Normal 3.5-5.2 [facility] Comment on above: Performed By: #### L [id number] #### [address] [address] Wilber Charles M.D. [employer] Albumin/Globulin [Mass ratio] 1.3 {ratio} Normal 0.8-2.6 [facility] Comment on above: Performed By: #### L [id number] #### [address] [address] Wilber Charles M.D. [employer] ALP [Catalytic activity/Vol] 155 U/L High 23-144 [facility] Comment on above: Performed By: #### L [id number] #### [address] [address] Wilebr Charles M.D. [employer] ALT [Catalytic activity/Vol] 12 U/L Normal 0-60 [facility] Comment on above: Performed By: #### L [id number] #### [address] [address] Wilber Charles M.D. [employer] Anion gap [Moles/Vol] 12 mmol/L Normal 5-15 [facility] Comment on above: Performed By: #### L [id number] #### [address] [address] Wilber Charles M.D. [employer] AST [Catalytic activity/Vol] 21 U/L Normal 0-46 [facility] Comment on above: Performed By: #### L [id number] #### [address] [address] Wilber Charles M.D. [employer] Bilirubin [Mass/Vol] 0.2 mg/dL Normal 0.0-1.2 [facility] Comment on above: Performed By: #### L [id number] #### [address] [address] Wilber Charles M.D. [employer] Calcium [Mass/Vol] 9.1 mg/dL Normal 8.5-10.5 [facility] Comment on above: Performed By: #### L [id number] #### [address] [address] Wilber Charles M.D. [employer] Chloride [Moles/Vol] 102 mmol/L Normal 96-110 [facility] Comment on above: Performed By: #### L [id number] #### [address] [address] Wilber Charles M.D. [employer] CO2 [Moles/Vol] 18 mmol/L Low 19-32 [facility] Comment on above: Performed By: #### L [id number] #### [address] [address] Wilber Charles M.D. [employer] Creatinine [Mass/Vol] 0.4 mg/dL Low 0.5-1.2 [facility] Comment on above: Performed By: #### L [id number] #### [address] [address] Wilber Charles M.D. [employer] GFR/1.73 sq M.predicted MDRD (S/P/Bld) [Vol rate/Area] 134 mL/min/1.73m*2 Normal >=60 [facility] Comment on above: Performed By: #### L [id number] #### [address] [address] Wilber Charles M.D. [employer] Globulin (S) [Mass/Vol] 2.8 g/dL Normal 1.9-3.6 [facility] Comment on above: Performed By: #### L [id number] #### [address] [address] Wilber Charles M.D. [employer] Glucose [Mass/Vol] 99 mg/dL Normal 70-99 [facility] Comment on above: Performed By: #### L [id number] #### [address] [address] Wilber Charles M.D. [employer] Potassium [Moles/Vol] 3.8 mmol/L Normal 3.4-5.3 [facility] Comment on above: Performed By: #### L [id number] #### [address] [address] Wilber Charles M.D. [employer] Protein [Mass/Vol] 6.3 g/dL Normal 6.0-8.3 [facility] Comment on above: Performed By: #### L [id number] #### [address] [address] Wilber Charles M.D. [employer] Sodium [Moles/Vol] 132 mmol/L Low 135-148 [facility] Comment on above: Performed By: #### L [id number] #### [address] [address] Wilber Charles M.D. [employer] Urea nitrogen [Mass/Vol] 9 mg/dL Normal 3-29 [facility] Comment on above: Performed By: #### L [id number] #### [address] [address] Wilber Charles M.D. [employer] Urea nitrogen/Creatinine [Mass ratio] 23 mg/mg Normal 7- [facility] Comment on above: Performed By: #### L [id number] #### [address] [address] Wilber Charles M.D. [employer] CULTURE, URINEon 10-23-2020 CULTURE, URINE TYPE DESCRIPTION URINE SOURCE DESCRIPTION CLEAN CATCH MIDSTREAM CULTURE NO GROWTH OF URINARY TRACT PATHOGENS. JASON INDICATIVE OF VAGINAL/URETHRAL CONTAMINATION PRESENT. PHYSICIANS MAY CONTACT MICROBIOLOGY AT [phone] IF FURTHER INFORMATION IS DESIRED. [facility] Comment on above: Performed By: #### L [id number] #### [address] [address] Wilber Charles M.D. [employer] LDHon 10-23-2020 LDH [Catalytic activity/Vol] 183 U/L Normal 0-260 [facility] Comment on above: Result Comment: Hemo lysis present. Performed By: #### L [id number] #### [address] [address] Wilber Charles M.D. [employer] RETYPE BLOOD BANKon 10-23-20 20 RETYPE BLOOD BANK BLOOD GROUP RETYPE: RETYPE BLOOD BANK: For Questions Contact Blood Bank Department [facility] Comment on above: Performed By: #### L [id number] #### [address] [address] Wilber Charles M.D. [employer] SARS COV 2 RNA, QL REAL TIME RT PCRon 10-23-2020 SARS COV2 RNA, QL REAL TIME RT PCR Not Detected Normal Not Detected, Invalid [facility] Comment on above: Performed By: #### L [id number] #### [address] [address] Wilber Charles M.D. [employer] SOURCE, COVID Nasopharynx. Normal [facility] Comment on above: Performed By: #### L [id number] #### [address] [address] Wilber Charles M.D. [employer] TYPE AND SCREENon 10-23-2020 TYPE AND SCREEN ABO GROUPING: A RH TYPE IN BLOOD: Positive ANTIBODY SCREEN: Negative SPECIMEN EXPIRATION DATE/TIME: [id number] Normal [facility] Comment on above: Performed By: #### L [id number] #### [address] [address] Wilber Charles M.D. [employer] URIC ACIDon 10-23-2020 Urate [Mass/Vol] 3.6 mg/dL Normal 2.5-7.0 [facility] Comment on above: Performed By: #### L [id number] #### [address] [address] Wilber Charles M.[employer]. [employer] URINALYSIS REFLEX TO CULTURE on 10-23-2020 Bacteria LM.HPF (Urine sed) [#/Area] None Seen Normal None Seen [facility] Comment on above: Performed By: #### L [id number] #### [address] [address] Wilber Charles M.D. [employer] BILIRUBIN URINE Negative Normal Negative [facility] Comment on above: Performed By: #### L [id number] #### [address] [address] Wilber Charles M.D. [employer] BLOOD IN URINE BY AUTOMATED TEST STRIP Negative Normal Negative [facility] Comment on above: Performed By: #### L [id number] #### [address] [place] [address] Wilber Charles M.D. [employer] Clarity (U) Clear Normal Clear [facility] Comment on above: Performed By: #### L [id number] #### [address] [place] [address] Wilber Charles M.D. [employer] Color (U) Yellow Normal Yellow, Colorless [facility] Comment on above: Performed By: #### L [id number] #### [address] [place] [address] Wilber Charles M.D. [employer] ERYTHROCYTES /HPF IN URINE SEDIMENT BY MICROSCOPY None Seen Normal None Seen, 0-2 [facility] Comment on above: Performed By: #### L [id number] #### [address] [place] [address] Wilber Charles M.D. [employer] GLUCOSE IN URINE BY AUTOMATED TEST STRIP Negative Normal Negative [facility] Comment on above: Performed By: #### L [id number] #### [address] [place] [address] Wilber Charles M.D. [employer] KETONE, URINE Negative Normal Negative, [facility] Comment on above: Performed By: #### L [id number] #### [address] [place] [address] Wilber Charles M.D. [employer] LEUKOCYTE ESTERASE, URINE BY AUTO TEST STRIP Small Abnormal Negative [facility] Comment on above: Performed By: #### L [id number] #### [address] [place] [address] Wilber Charles M.D. [employer] LEUKOCYTES /HPF IN URINE SEDIMENT BY MICROSCOPY 1-5 Normal None Seen, 1-5 [facility] Comment on above: Performed By: #### L [id number] #### [address] [address] Wilber Charles M.D. [employer] MUCUS, URINE Present Normal None Seen [facility] Comment on above: Performed By: #### L [id number] #### [address] [address] Wilber Charles M.D. [employer] Nitrite Auto test strip Ql (U) Negative Normal Negative [facility] Comment on above: Performed By: #### L [id number] #### [address] [address] Wilber Charles M.D. [employer] pH (U) 7.0 pH Units Normal 5.0-8.0 [facility] Comment on above: Performed By: #### L [id number] #### [address] [address] Wilber Charles M.D. [employer] Protein (U) [Mass/Vol] Negative Normal Negat paola, 10 [facility] Comment on above: Performed By: #### L [id number] #### [address] [place] [address] Wilber Charles M.D. [employer] SPECIFIC GRAVITY, URINE 1.008 Units Normal 1.005-1.030 [facility] Comment on above: Result Comment: Urin e specific gravity may be affected by X- ray dye, high glucose, high protein, and some chemotherapeutic drugs. Clinical correlation is recommended. Performed By: #### L [id number] #### [address] [place] [address] Wilber Charles M.D. [employer] SQUAMOUS EPITHELIAL CELLS, URINE 1-5 Normal None Seen, 1-5 [facility] Comment on above: Performed By: #### L [id number] #### [address] [place] [address] Wilber Charles M.D. [employer] UROBILINOGEN, URINE <2 Normal <2 [facility] Comment on above: Performed By: #### L [id number] #### [address] [place] [address] Wilber Charles M.D. [employer] COMPREHENSIVE METABOLIC PANE [facility] 10-19-2020 Albumin [Mass/Vol] 3.5 g/dL Normal 3.5-5.2 [facility] Comment on above: Performed By: #### L [id number] #### [address] [place] [address] Wilber Charles M.D. [employer] Albumin/Globulin [Mass ratio] 1.3 {ratio} Normal 0.8-2.6 [facility] Comment on above: Performed By: #### L [id number] #### [address] [place] [address] Wilber Charles M.D. [employer] ALP [Catalytic activity/Vol] 140 U/L Normal 23-144 [facility] Comment on above: Performed By: #### L [id number] #### [address] [place] [address] Wilber Charles M.D. [employer] ALT [Catalytic activity/Vol] 10 U/L Normal 0-60 [facility] Comment on above: Performed By: #### L [id number] #### [address] [place] [address] Wilber Charles M.D. [employer] Anion gap [Moles/Vol] 8 mmol/L Normal 5-15 [facility] Comment on above: Performed By: #### L [id number] #### [address] [place] [address] Wilber Charles M.D. [employer] AST [Catalytic activity/Vol] 15 U/L Normal 0-46 [facility] Comment on above: Performed By: #### L [id number] #### [address] [address] Wilber Charles M.D. [employer] Bilirubin [Mass/Vol] 0.2 mg/dL Normal 0.0-1.2 [facility] Comment on above: Performed By: #### L [id number] #### [address] [address] Wilber Charles M.D. [employer] Calcium [Mass/Vol] 9.1 mg/dL Normal 8.5-10.5 [facility] Comment on above: Performed By: #### L [id number] #### [address] [address] Wilber Charles M.D. [employer] Chloride [Moles/Vol] 103 mmol/L Normal 96-110 [facility] Comment on above: Performed By: #### L [id number] #### [address] [address] Wilber Charles M.D. [employer] CO2 [Moles/Vol] 24 mmol/L Normal 19-32 [facility] Comment on above: Performed By: #### L [id number] #### [address] [address] Wilber Charles M.D. [employer] Creatinine [Mass/Vol] 0.5 mg/dL Normal 0.5-1.2 [facility] Comment on above: Performed By: #### L [id number] #### [address] [address] Wilber Charles M.D. [employer] GFR/1.73 sq M.predicted MDRD (S/P/Bld) [Vol rate/Area] 125 mL/min/1.73m*2 Normal >=60 [facility] Comment on above: Performed By: #### L [id number] #### [address] [address] Wilber Charles M.D. [employer] Globulin (S) [Mass/Vol] 2.8 g/dL Normal 1.9-3.6 [facility] Comment on above: Performed By: #### L [id number] #### [address] [address] Wilber Charles M.D. [employer] Glucose [Mass/Vol] 92 mg/dL Normal 70-99 [facility] Comment on above: Performed By: #### L [id number] #### [address] [address] Wilber Charles M.D. [employer] Potassium [Moles/Vol] 4.1 mmol/L Normal 3.4-5.3 [facility] Comment on above: Performed By: #### L [id number] #### [address] [address] Wilber Charles M.D. [employer] Protein [Mass/Vol] 6.3 g/dL Normal 6.0-8.3 [facility] Comment on above: Performed By: #### L [id number] #### [address] [address] Wilber Charles M.D. [employer] Sodium [Moles/Vol] 135 mmol/L Normal 135-148 [facility] Comment on above: Performed By: #### L [id number] #### [address] [address] Wilber Charles M.D. [employer] Urea nitrogen [Mass/Vol] 6 mg/dL Normal 3-29 [facility] Comment on above: Performed By: #### L [id number] #### [address] [address] Wilber Charles M.D. [employer] Urea nitrogen/Creatinine [Mass ratio] 12 mg/mg Normal 7-25 [facility] Comment on above: Performed By: #### L [id number] #### [address] [address] Wilber Charles M.D. [employer] PROTEIN,CREATININE RATIO, UR INE RANDOMon 10-19-2020 CREATININE URINE 20.3 mg/dL Normal [facility] Comment on above: Performed By: #### L [id number] #### [address] [address] Wilber Charles M.D. [employer] Protein (U) [Mass/Vol] 4.0 mg/dL Normal <=12.0 [facility] Comment on above: Performed By: #### L [id number] #### [address] [address] Wilber Charles M.D. [employer] PROTEIN/CREATININE RATIO, URINE RANDOM 0.2 Low 15.0-220.0 [facility] Comment on above: Result Comment: Urin e protein value of < 4 mg/dl cannot be quantitated. Unable to calculate as the measured result is below the analytical measurement range for this assay Performed By: #### L [id number] #### [address] [address] Wilber Charles M.D. [employer] US BIOPHYSICAL PROFILE WITHO MT NSTon 10-19-2020 US BIOPHYSICAL PROFILE WITHOUT NST Ultrasound biophysical profile third trimester CLINICAL: Third trimester early 6 weeks 3 days gestational age. Increased blood pressure. TECHNIQUE: Dedicated ultrasound imaging of the fetus was performed to include the water supply technician's evaluation of biophysical profile. FINDINGS: There is a single living intrauterine fetus in vertex presentation. heart rate is 180 beats per minute. No evidence of placenta previa. The amniotic fluid index is 15.2 cm with maximum vertical pocket 4.9 cm left upper quadrant. Biophysical score: motion: 2 out of 2. tone: 2 out of 2. breathin out of 2. Amniotic fluid volume: 2 out of 2. Total score: 8 out of 8. IMPRESSION: Biophysical profile score 8/8 with normal amniotic fluid index between the 50th and 95th percentile for stated gestational age. Dictated by: Shan Kingston M.D. Workstation ID:[id number] Normal [facility] CULTURE, URINEon 10-12-2020 CULTURE, URINE TYPE DESCRIPTION URINE SOURCE DESCRIPTION CLEAN CATCH MIDSTREAM CULTURE NO GROWTH OF URINARY TRACT PATHOGENS. JASON INDICATIVE OF VAGINAL/URETHRAL CONTAMINATION PRESENT. PHYSICIANS MAY CONTACT MICROBIOLOGY AT [phone] IF FURTHER INFORMATION IS DESIRED. Normal [facility] Comment on above: Performed By: #### L [id number] #### [address] [address] Wilber Charles M.D. [employer] URINALYSIS REFLEX TO CULTURE on 10-12-2020 Bacteria LM.HPF (Urine sed) [#/Area] None Seen Normal None Seen [facility] Comment on above: Performed By: #### L [id number] #### [address] [address] Wilber Charles M.D. [employer] BILIRUBIN URINE Negative Normal Negative [facility] Comment on above: Performed By: #### L [id number] #### [address] [address] Wilber Charles M.D. [employer] BLOOD IN URINE BY AUTOMATED TEST STRIP Negative Normal Negative [facility] Comment on above: Performed By: #### L [id number] #### [address] [address] Wilber Charles M.D. [employer] Clarity (U) Clear Normal Clear [facility] Comment on above: Performed By: #### L [id number] #### [address] [address] Wilber Charles M.D. [employer] Color (U) Colorless Normal Yellow, Colorless [facility] Comment on above: Performed By: #### L [id number] #### [address] [place] [address] Wilber Charles M.D. [employer] ERYTHROCYTES /HPF IN URINE SEDIMENT BY MICROSCOPY None Seen Normal None Seen, 0-2 [facility] Comment on above: Performed By: #### L [id number] #### [address] [place] [address] Wilber Charles M.D. [employer] GLUCOSE IN URINE BY AUTOMATED TEST STRIP Negative Normal Negative [facility] Comment on above: Performed By: #### L [id number] #### [address] [place] [address] Wilber Charles M.D. [employer] KETONE, URINE Negative Normal Negative, 5 [facility] Comment on above: Performed By: #### L [id number] #### [address] [place] [address] Wilber Charles M.D. [employer] LEUKOCYTE ESTERASE, URINE BY AUTO TEST STRIP Moderate Abnormal Negative [facility] Comment on above: Performed By: #### L [id number] #### [address] [place] [address] Wilber Charles M.D. [employer] LEUKOCYTES /HPF IN URINE SEDIMENT BY MICROSCOPY 1-5 Normal None Seen, 1-5 [facility] Comment on above: Performed By: #### L [id number] #### [address] [place] [address] Wilber Charles M.D. [employer] MUCUS, URINE Present Normal None Seen [facility] Comment on above: Performed By: #### L [id number] #### [address] [place] [address] Wilber Charles M.D. [employer] Nitrite Auto test strip Ql (U) Negative Normal Negative [facility] Comment on above: Performed By: #### L [id number] #### [address] [address] Wilber Charles M.D. [employer] pH (U) 7.0 pH Units Normal 5.0-8.0 [facility] Comment on above: Performed By: #### L [id number] #### [address] [address] Wilber Charles M.D. [employer] Protein (U) [Mass/Vol] Negative Normal Negat paola, 10 [facility] Comment on above: Performed By: #### L [id number] #### [address] [address] Wilber Charles M.D. [employer] SPECIFIC GRAVITY, URINE 1.005 Units Normal 1.005-1.030 [facility] Comment on above: Result Comment: Urin e specific gravity may be affected by X- ray dye, high glucose, high protein, and some chemotherapeutic drugs. Clinical correlation is recommended. Performed By: #### L [id number] #### [address] [address] Wilber Charles M.D. [employer] SQUAMOUS EPITHELIAL CELLS, URINE 1-5 Normal None Seen, 1-5 [facility] Comment on above: Performed By: #### L [id number] #### [address] [address] Wilber Charles M.D. [employer] UROBILINOGEN, URINE <2 Normal <2 [facility] Comment on above: Performed By: #### L [id number] #### [address] [address] Wilber Charles M.D. [employer] Bacteria Auto Ql (U) None Seen None [facility]en [facility] Bilirubin Ql (U) Negative Negative mg/dl [facility] Cefpodoxime BRENDA [Susc] 1-5 None Seen, 1-5 /HPF [facility] Clarity (U) Clear Clear [facility] Color (U) Colorless Yellow, Colorless [facility] Glucose Ql (U) Negative Negative mg/dl [facility] Hemoglobin Ql (U) Negative Negative [facility] Interpretation and review of laboratory results Abnormal [facility] Ketones Ql (U) Negative Negative, 5 mg/dl [facility] Leukocyte esterase Test strip Ql (U) Moderate Abnormal Negative [facility] Mucus Ql (Urine sed) Present None Seen [facility] Nitrite Ql (U) Negative Negative [facility] pH (U) 7.0 [pH] 5.0 - 8.0 pH Units [facility] Protein Ql (U) Negative Negative, 10 mg/dl [facility] RBC LM.HPF (Urine sed) [#/Vol] None Seen None Seen, 0-2 /HPF [facility] Specific gravity (U) [Rel density] 1.005 [facility] Comment on above: Urine specific gravi ty may be affected by X-ray dye, high glucose, high protein, and some chemotherapeutic drugs. Clinical correlation is recommended. Urobilinogen Test strip Ql (U) <2 <2 mg/dl [facility] WBC LM.HPF (Urine sed) [#/Area] 1-5 None Seen, 1-5 /HPF [facility] COMPLETE BLOOD COUNT WITH DI FFERENTIALon 09-28-2020 BASOPHILS ABSOLUTE COUNT (10*3/UL) BY AUTOMATED COUNT 0.0 K/uL Normal 0.0-0.3 [facility] Comment on above: Performed By: #### L [id number] #### [address] [address] Wilber Charles M.D. [employer] BASOPHILS RELATIVE PERCENT BY AUTOMATED COUNT 0.3 % Normal 0.0-2.0 [facility] Comment on above: Performed By: #### L [id number] #### [address] [address] Wilber Charles M.D. [employer] Eosinophils (Bld) [#/Vol] 0.1 10*3/uL Normal 0.0-0.5 [facility] Comment on above: Performed By: #### L [id number] #### [address] [address] Wilber Charles M.D. [employer] EOSINOPHILS RELATIVE PERCENT BY AUTOMATED COUNT 1.3 % Normal 0.0-5.0 [facility] Comment on above: Performed By: #### L [id number] #### [address] [address] Wilber Charles M.D. [employer] Erythrocyte distribution width (RBC) [Ratio] 12.5 % Normal <=15.0 [facility] Comment on above: Performed By: #### L [id number] #### [address] [address] Wilber Charles M.D. [employer] Hematocrit (Bld) [Volume fraction] 35.5 % Normal 34.0-49.0 [facility] Comment on above: Performed By: #### L [id number] #### [address] [address] Wilber Charles M.D. [employer] Hemoglobin (Bld) [Mass/Vol] 12.6 g/dL Normal 11.2-15.7 [facility] Comment on above: Performed By: #### L [id number] #### [address] [address] Wilber Charles M.D. [employer] Immature granulocytes (Bld) [#/Vol] 0.0 10*3/uL Normal 0.0-0.1 [facility] Comment on above: Performed By: #### L [id number] #### [address] [address] Wilber Charles M.D. [employer] Immature granulocytes/100 WBC (Bld) 0.5 % Normal <1.0 [facility] Comment on above: Performed By: #### L [id number] #### [address] [address] Wilber Charles M.D. [employer] LYMPHOCYTES ABSOLUTE COUNT (10*3/UL) BY AUTOMATED COUNT 1.6 K/uL Normal 0.9-4.1 [facility] Comment on above: Performed By: #### L [id number] #### [address] [address] Wilber Charlse M.D. [employer] LYMPHOCYTES RELATIVE PERCENT BY AUTOMATED COUNT 19.9 % Normal 14.0-51.0 [facility] Comment on above: Performed By: #### L [id number] #### [address] [address] Wilber Charles M.D. [employer] MCH (RBC) [Entitic mass] 32.0 pg Normal 26.0-34.0 [facility] Comment on above: Performed By: #### L [id number] #### [address] [address] Wilber Charles M.D. [employer] MCHC (RBC) [Mass/Vol] 35.5 g/dL Normal 30.7-35.5 [facility] Comment on above: Performed By: #### L [id number] #### [address] [address] Wilber Charles M.D. [employer] MCV (RBC) [Entitic vol] 90.1 fL Normal 80.0-100.0 [facility] Comment on above: Performed By: #### L [id number] #### [address] [address] Wilber Charles M.D. [employer] MEAN PLATELET VOLUME (FL) BY AUTOMATED COUNT 10.4 fL Normal 7.2-11.7 [facility] Comment on above: Performed By: #### L [id number] #### [address] [address] Wilber Charles M.D. [employer] MONOCYTES ABSOLUTE COUNT (10*3/UL) BY AUTOMATED COUNT 0.5 K/uL Normal 0.2-1.0 [facility] Comment on above: Performed By: #### L [id number] #### [address] [address] Wilber Charles M.D. [employer] MONOCYTES RELATIVE PERCENT BY AUTOMATED COUNT 5.7 % Normal 4.0-12.0 [facility] Comment on above: Performed By: #### L [id number] #### [address] [address] Wilber Charles M.D. [employer] NEUTROPHILS ABSOLUTE COUNT (10*3/UL) BY AUTOMATED COUNT 5.7 K/uL Normal 1.8-7.5 [facility] Comment on above: Performed By: #### L [id number] #### [address] [address] Wilber Charles M.D. [employer] NEUTROPHILS RELATIVE PERCENT BY AUTOMATED COUNT 72.3 % Normal 42.0-80.0 [facility] Comment on above: Performed By: #### L [id number] #### [address] [address] Wilber Charles M.D. [employer] PLATELETS (10*3/UL) BY AUTOMATED COUNT 257 K/uL Normal 140-400 [facility] Comment on above: Performed By: #### L [id number] #### [address] [address] Wilber Charles M.D. [employer] RBC (Bld) [#/Vol] 3.94 10*6/uL Low 3.95-5.26 [facility] Comment on above: Performed By: #### L [id number] #### [address] [address] Wilber Charles M.D. [employer] WBC (Bld) [#/Vol] 0 /100 WBCs Normal <=0 [facility] Comment on above: Performed By: #### L [id number] #### [address] [address] Wilber Charles M.D. [employer] WBC (Bld) [#/Vol] 7.9 10*3/uL Normal 3.5-10.9 [facility] Comment on above: Performed By: #### L [id number] #### [address] [address] Wilber Charles M.D. [employer] Basophils (Bld) [#/Vol] 0.0 10*3/uL 0 - 0.3 K/uL [facility] Basophils/100 WBC (Bld) 0.3 % 0 - 2 % [facility] Eosinophils (Bld) [#/Vol] 0.1 10*3/uL 0 - 0.5 K/uL [facility] Eosinophils/100 WBC (Bld) 1.3 % 0 - 5 % [facility] Erythrocyte distribution width (RBC) [Ratio] 12.5 % <=15.0 [facility] Hematocrit (Bld) [Volume fraction] 35.5 % 34 - 49 % [facility] Hemoglobin (Bld) [Mass/Vol] 12.6 g/dL 11.2 - 15.7 g/dL [facility] Immature granulocytes (Bld) [#/Vol] 0.0 10*3/uL 0 - 0.1 K/uL [facility] Immature granulocytes/100 WBC (Bld) 0.5 % <1.0 [facility] Interpretation and review of laboratory results Abnormal [facility] Lymphocytes (Bld) [#/Vol] 1.6 10*3/uL 0.9 - 4.1 K/uL [facility] Lymphocytes/100 WBC (Bld) 19.9 % 14 - 51 % [facility] MCH (RBC) [Entitic mass] 32.0 pg 26 - 34 pg [facility] MCHC (RBC) [Mass/Vol] 35.5 g/dL 30.7 - 35.5 g/dL [facility] MCV (RBC) [Entitic vol] 90.1 fL 80 - 100 fL [facility] Monocytes (Bld) [#/Vol] 0.5 10*3/uL 0.2 - 1 K/uL [facility] Monocytes/100 WBC (Bld) 5.7 % 4 - 12 % [facility] Neutrophils (Bld) [#/Vol] 5.7 10*3/uL 1.8 - 7.5 K/uL [facility] Neutrophils/100 WBC (Bld) 72.3 % 42 - 80 % [facility] Nucleated cells (Bld) [#/Vol] 0 <=0 /100 WBCs [facility] Platelet mean volume (Bld) [Entitic vol] 10.4 fL 7.2 - 11.7 fL [facility] Platelets (Bld) [#/Vol] 257 10*3/uL 140 - 400 K/uL [facility] RBC (Bld) [#/Vol] 3.94 10*6/uL Low [facility] WBC corrected for nucl RBC Auto (Bld) [#/Vol] 7.9 K/uL 3.5 - 10.9 K/uL [facility] COMPREHENSIVE METABOLIC PANE Luis 09-28-2020 Albumin [Mass/Vol] 3.3 g/dL Low 3.5-5.2 [facility] Comment on above: Performed By: #### L [id number] #### [address] [address] Wilber Charles M.D. [employer] Albumin/Globulin [Mass ratio] 1.1 {ratio} Normal 0.8-2.6 [facility] Comment on above: Performed By: #### L [id number] #### [address] [address] Wilber Charles M.D. [employer] ALP [Catalytic activity/Vol] 112 U/L Normal 23-144 [facility] Comment on above: Performed By: #### L [id number] #### [address] [address] Wilber Charles M.D. [employer] ALT [Catalytic activity/Vol] 8 U/L Normal 0-60 [facility] Comment on above: Performed By: #### L [id number] #### [address] [address] Wilber Charles M.D. [employer] Anion gap [Moles/Vol] 10 mmol/L Normal 5-15 [facility] Comment on above: Performed By: #### L [id number] #### [address] [address] Wliber Charles M.D. [employer] AST [Catalytic activity/Vol] 12 U/L Normal 0-46 [facility] Comment on above: Performed By: #### L [id number] #### [address] [address] Wilber Charles M.D. [employer] Bilirubin [Mass/Vol] 0.3 mg/dL Normal 0.0-1.2 [facility] Comment on above: Performed By: #### L [id number] #### [address] [address] Wilber Charles M.D. [employer] Calcium [Mass/Vol] 9.0 mg/dL Normal 8.5-10.5 [facility] Comment on above: Performed By: #### L [id number] #### [address] [place] [address] Wilber Charles M.D. [employer] Chloride [Moles/Vol] 105 mmol/L Normal 96-110 [facility] Comment on above: Performed By: #### L [id number] #### [address] [address] Wilber Charles M.D. [employer] CO2 [Moles/Vol] 22 mmol/L Normal 19-32 [facility] Comment on above: Performed By: #### L [id number] #### [address] [address] Wilber Charles M.D. [employer] Creatinine [Mass/Vol] 0.5 mg/dL Normal 0.5-1.2 [facility] Comment on above: Performed By: #### L [id number] #### [address] [address] Wilber Charles M.D. [employer] GFR/1.73 sq M.predicted MDRD (S/P/Bld) [Vol rate/Area] 125 mL/min/1.73m*2 Normal >=60 [facility] Comment on above: Performed By: #### L [id number] #### [address] [address] Wilber Charles M.D. [employer] Globulin (S) [Mass/Vol] 2.9 g/dL Normal 1.9-3.6 [facility] Comment on above: Performed By: #### L [id number] #### [address] [address] Wilber Charles M.D. [employer] Glucose [Mass/Vol] 90 mg/dL Normal 70-99 [facility] Comment on above: Performed By: #### L [id number] #### [address] [address] Wilber Charles M.D. [employer] Potassium [Moles/Vol] 3.8 mmol/L Normal 3.4-5.3 [facility] Comment on above: Performed By: #### L [id number] #### [address] [address] Wilber Charles M.D. [employer] Protein [Mass/Vol] 6.2 g/dL Normal 6.0-8.3 [facility] Comment on above: Performed By: #### L [id number] #### [address] [address] Wilber Charles M.D. Display [employer] Sodium [Moles/Vol] 137 mmol/L Normal 135-148 [facility] Comment on above: Performed By: #### L [id number] #### [address] [address] Wilber Charles M.D. Display [employer] Urea nitrogen [Mass/Vol] 5 mg/dL Normal 3-29 [facility] Comment on above: Performed By: #### L [id number] #### [address] [address] Wilber Charles M.D. Display [employer] Urea nitrogen/Creatinine [Mass ratio] 10 mg/mg Normal 7-25 [facility] Comment on above: Performed By: #### L [id number] #### [address] [address] Wilber Charles M.D. Display [employer] Albumin [Mass/Vol] 3.3 g/dL Low 3.5 - 5.2 g/dL [facility] ALP [Catalytic activity/Vol] 112 U/L 23 - 144 U/L [facility] ALT [Catalytic activity/Vol] 8 U/L 0 - 60 U/L [facility] Amino beta guanidinopropionate Ql (P) 1.1 [facility] Anion gap [Moles/Vol] 10 mmol/L [facility] AST [Catalytic activity/Vol] 12 U/L 0 - 46 U/L [facility] Bilirubin [Mass/Vol] 0.3 mg/dL 0 - 1.2 mg/dL [facility] Calcium [Mass/Vol] 9.0 mg/dL 8.5 - 10. 5 mg/dL [facility] Chloride [Moles/Vol] 105 mmol/L [facility] CO2 [Moles/Vol] 22 mmol/L [facility] Creatinine [Mass/Vol] 0.5 mg/dL 0.5 - 1.2 mg/dL [facility] GFR/1.73 sq M predicted among blacks MDRD (S/P/Bld) [Vol rate/Area] 125 mL/min/{1.73_m2} >=60 mL/min/1.73 m*2 [facility] Globulin (S) [Mass/Vol] 2.9 g/dL 1.9 - 3.6 g/dL [facility] Glucose [Mass/Vol] 90 mg/dL 70 - 99 mg/dL [facility] Interpretation and review of laboratory results Abnormal [facility] Potassium [Moles/Vol] 3.8 mmol/L [facility] Protein [Mass/Vol] 6.2 g/dL 6 - 8.3 g/dL [facility] Sodium [Moles/Vol] 137 mmol/L [facility] Urea nitrogen [Mass/Vol] 5 mg/dL 3 - 29 mg/dL [facility] Urea nitrogen/Creatinine [Mass ratio] 10 mg/mg [facility] PROTEIN,CREATININE RATIO, UR INE RANDOMon 09-28-2020 CREATININE URINE 114.8 mg/dL Normal [facility] Comment on above: Performed By: #### L [id number] #### [address] [address] Wilber Charles M.D. [employer] Protein (U) [Mass/Vol] 17.2 mg/dL High <=12.0 [facility] Comment on above: Performed By: #### L [id number] #### [address] [address] Wilber Charles M.D. [employer] PROTEIN/CREATININE RATIO, URINE RANDOM 0.1 Low 15.0-220.0 [facility] Comment on above: Performed By: #### L [id number] #### [address] [address] Wilber Charles M.D. [employer] Creatinine (U) [Mass/Vol] 114.8 mg/dL [facility] Interpretation and review of laboratory results Abnormal [facility] Protein (U) [Mass/Vol] 17.2 mg/dL High <=12.0 [facility] Protein/Creatinine Ratio, Urine Random 0.1 Low [facility] URINALYSISon 09-28-2020 Bacteria LM.HPF (Urine sed) [#/Area] Rare Abnormal None Seen [facility] Comment on above: Performed By: #### L [id number] #### [address] [place] [address] Wilber Charles M.D. [employer] BILIRUBIN URINE Negative Normal Negative [facility] Comment on above: Performed By: #### L [id number] #### [address] [place] [address] Wilber Charles M.D. [employer] BLOOD IN URINE BY AUTOMATED TEST STRIP Negative Normal Negative [facility] Comment on above: Performed By: #### L [id number] #### [address] [place] [address] Wilber Charles M.D. [employer] Clarity (U) Clear Normal Clear [facility] Comment on above: Performed By: #### L [id number] #### [address] [place] [address] Wilber Charles M.D. [employer] Color (U) Yellow Normal Yellow, Colorless [facility] Comment on above: Performed By: #### L [id number] #### [address] [place] [address] Wilber Charles M.D. [employer] ERYTHROCYTES /HPF IN URINE SEDIMENT BY MICROSCOPY None Seen Normal None Seen, 0-2 [facility] Comment on above: Performed By: #### L [id number] #### [address] [place] [address] Wilber Charles M.D. [employer] GLUCOSE IN URINE BY AUTOMATED TEST STRIP Negative Normal Negative [facility] Comment on above: Performed By: #### L [id number] #### [address] [place] [address] Wilber Charles M.D. [employer] KETONE, URINE Negative Normal Negative, [facility] Comment on above: Performed By: #### L [id number] #### [address] [place] [address] Wilber Charles M.D. [employer] LEUKOCYTE ESTERASE, URINE BY AUTO TEST STRIP Small Abnormal Negative [facility] Comment on above: Performed By: #### L [id number] #### [address] [place] [address] Wilber Charles M.D. [employer] LEUKOCYTES /HPF IN URINE SEDIMENT BY MICROSCOPY 1-5 Normal None Seen, 1-5 [facility] Comment on above: Performed By: #### L [id number] #### [address] [place] [address] Wilber Charles M.D. [employer] MUCUS, URINE Present Normal None Seen [facility] Comment on above: Performed By: #### L [id number] #### [address] [place] [address] Wilber Charles M.D. [employer] Nitrite Auto test strip Ql (U) Negative Normal Negative [facility] Comment on above: Performed By: #### L [id number] #### [address] [place] [address] Wilber Charles M.D. [employer] pH (U) 7.0 pH Units Normal 5.0-8.0 [facility] Comment on above: Performed By: #### L [id number] #### [address] [place] [address] Wilber Charles M.D. [employer] Protein (U) [Mass/Vol] Negative Normal Negat paola, 10 [facility] Comment on above: Performed By: #### L [id number] #### [address] [place] [address] Wilber Charles M.D. [employer] SPECIFIC GRAVITY, URINE 1.016 Units Normal 1.005-1.030 [facility] Comment on above: Result Comment: Urin e specific gravity may be affected by X- ray dye, high glucose, high protein, and some chemotherapeutic drugs. Clinical correlation is recommended. Performed By: #### L [id number] #### [address] [address] Wilber Charles M.D. [employer] SQUAMOUS EPITHELIAL CELLS, URINE 1-5 Normal None Seen, 1-5 [facility] Comment on above: Performed By: #### L [id number] #### [address] [address] Wilber Charles M.D. [employer] UROBILINOGEN, URINE <2 Normal <2 [facility] Comment on above: Performed By: #### L [id number] #### [address] [address] Wilber Charles M.D. [employer] Bacteria Auto Ql (U) Rare Abnormal None Seen [facility] Bilirubin Ql (U) Negative Negative mg/dl [facility] Cefpodoxime BRENDA [Susc] 1-5 None Seen, 1-5 /HPF [facility] Clarity (U) Clear Clear [facility] Color (U) Yellow Yellow, Colorless [facility] Glucose Ql (U) Negative Negative mg/dl [facility] Hemoglobin Ql (U) Negative Negative [facility] Interpretation and review of laboratory results Abnormal [facility] Ketones Ql (U) Negative Negative, 5 mg/dl [facility] Leukocyte esterase Test strip Ql (U) Small Abnormal Negative [facility] Mucus Ql (Urine sed) Present None Seen [facility] Nitrite Ql (U) Negative Negative [facility] pH (U) 7.0 [pH] 5.0 - 8.0 pH Units [facility] Protein Ql (U) Negative Negative, 10 mg/dl [facility] RBC LM.HPF (Urine sed) [#/Vol] None Seen None Seen, 0-2 /HPF [facility] Specific gravity (U) [Rel density] 1.016 [facility] Comment on above: Urine specific gravi ty may be affected by X-ray dye, high glucose, high protein, and some chemotherapeutic drugs. Clinical correlation is recommended. Urobilinogen Test strip Ql (U) <2 <2 mg/dl [facility] WBC LM.HPF (Urine sed) [#/Area] 1-5 None Seen, 1-5 /HPF [facility] ALT (SGPT)on 02-19-2018 Alanine aminotransferase (ALT) 17 U/L Normal 14-65 [facility] Comment on above: Result Comment: This test result might be falsely depressed or falsely elevated onsamples drawn from patients taking Sulfasalazine and Sulfapyridine.Venipuncture should occur prior to taking either of these drugs. Performed By: #### A LT, AST ####Unless otherwise noted, all testing performed by [address] [id number]: [id number] Director: Shabbir Krishnan M.D. AST (SGOT)on 02-19-2018 Aspartate aminotransferase (AST) 16 U/L Normal 0-45 [facility] Comment on above: Result Comment: This test result might be falsely depressed or falsely elevated onsamples drawn from patients taking Sulfasalazine and Sulfapyridine.Venipuncture should occur prior to taking either of these drugs. Performed By: #### A LT, AST ####Unless otherwise noted, all testing performed by [address] [id number]: [id number] Director: Shabbir Krishnan M.D. PELVISon 07-04-2017 US PELVIS Final ReportAccession No: [id number] Performed: Jul 04 2017 12:15PMExamination: US PELVISCLINICAL HISTORY: 32-year-old female with pelvic pain, status post leftoophorectomy. The patient's last menstrual period began on 05/20/2017.PELVIC ULTRASOUND 07/04/2017 AT 11:55 AM:FINDINGS: Transabdominal and transvaginal sonographic images of thepelvis were obtained. Transvaginal ultrasound was performed in order tobetter evaluate the uterus and right ovary.The uterus is normal size and echotexture measuring 7.5 x 4.4 x 5.3 cm.Endometrial thickness is as much as 9 mm. The right ovary is 4.0 x 1.8 x1.9 cm for a total volume of 7.6 cc. There are small follicular cystswithin the right ovary. The left ovary is not visualized consistent withthe patient's clinical history of left oophorectomy. There is a smallvolume of cul-de-sac fluid. There is normal vascular flow to the rightovary.IMPRESSION:1. With the patient's last menstrual period beginning on 05/20/2017 andwithout a negative test or visualization of an intrauterinepregnancy, ectopic cannot be excluded based on thisexamination. Clinical and laboratory correlation are recommended.2. Thickened endometrium which may be related to the phase of thepatient's menstrual cycle. Follow-up ultrasound during a different phaseof the patient's menstrual cycle could be performed to confirm that thisis normal and does not represent pathology.3. Normal right ovary with small follicular cysts.4. Status post left oophorectomy.5. Small volume of cul-de-sac fluid which is nonspecific but probablyphysiologic.NON-E MERGENT BUT IMPORTANT findings from this study will require actionfrom the physician (see findings/recommendations in Impression section). Receipt of this report was confirmed by Sally Ji,Level Vial Marker for [facility] NICKING MACHINE OPERATOR at 1:10 pm on 07/04/17, withunderstanding that non-emergent attention by the physician or physiciandelegate is needed.Interpreting Physician: WYATT PARKER M.D.Trans: [id number] : cc: Normal [facility] US TRANSVAGINAL NON OBon US TRANSVAGINAL NON OB Final ReportAccession No: [id number] Performed: Jul 04 2017 12:15PMExamination: US TRANSVAGINAL NON OBCLINICAL HISTORY: 32-year-old female with pelvic pain, status post leftoophorectomy. The patient's last menstrual period began on 05/20/2017.PELVIC ULTRASOUND 07/04/2017 AT 11:55 AM:FINDINGS: Transabdominal and transvaginal sonographic images of thepelvis were obtained. Transvaginal ultrasound was performed in order tobetter evaluate the uterus and right ovary.The uterus is normal size and echotexture measuring 7.5 x 4.4 x 5.3 cm.Endometrial thickness is as much as 9 mm. The right ovary is 4.0 x 1.8 x1.9 cm for a total volume of 7.6 cc. There are small follicular cystswithin the right ovary. The left ovary is not visualized consistent withthe patient's clinical history of left oophorectomy. There is a smallvolume of cul-de-sac fluid. There is normal vascular flow to the rightovary.IMPRESSION:1. With the patient's last menstrual period beginning on 05/20/2017 andwithout a negative test or visualization of an intrauterinepregnancy, ectopic cannot be excluded based on thisexamination. Clinical and laboratory correlation are recommended.2. Thickened endometrium which may be related to the phase of thepatient's menstrual cycle. Follow-up ultrasound during a different phaseof the patient's menstrual cycle could be performed to confirm that thisis normal and does not represent pathology.3. Normal right ovary with small follicular cysts.4. Status post left oophorectomy.5. Small volume of cul-de-sac fluid which is nonspecific but probablyphysiologic.NON-E MERGENT BUT IMPORTANT findings from this study will require actionfrom the physician (see findings/recommendations in Impression section). Receipt of this report was confirmed by Sally Ji,Level Vial Marker for [facility] NICKING MACHINE OPERATOR at 1:10 pm on 07/04/17, withunderstanding that non-emergent attention by the physician or physiciandelegate is needed.Interpreting Physician: WYATT PARKER M.D.Trans: [id number] : cc: Normal [facility] History And Physical-Dictate don 07-01-2017 Discharge Summary [facility], [place] [address]XXEO GREGORIA SERNA [id number] 1985ADMIT 06/10/2017DISCH 06/14/2017DISCHARGE SUMMARYREPORT TITLEDischarge SummaryDIAGNOSES AT THE TIME OF DISCHARGE1. Left ovarian mass.2. Postoperative hemorrhage and anemia following left oophorectomy.PROCEDURES WHILE IN THE HOSPITAL1. Open laparotomy with left oophorectomy.2. Open laparotomy with resolution of postoperative bleeding.BRIEF SUMMARY OF THE HISTORYMsIlsa Serna is a 32-year-old female, 3, para 2, AB1. She presentedwith complaints of some abdominal and back pain in May of 2017, and at thattime, there appeared to be some abdominal abnormalities which werenonspecific. I was told of the patient's abdominal pain through Dr. Hardin and an ultrasound was ordered. The ultrasound revealed a 19 cm cysticmultiloculated ovarian mass incorporating the left ovary. A CA-125 wasperformed, which was 38.5. Options were discussed with the patient regardingoophorectomy with Dr. [place] at [place] versus oophorectomy here in [place].The decision was made for oophorectomy in [place] and the patient wasadmitted for open laparotomy with left oophorectomy.BRIEF SUMMARY OF HOSPITAL COURSEMsIlsa Serna was admitted to the hospital where she underwent open laparotomywith left oophorectomy. Approximately 1100 cc of fluid were removed from thecyst, which was quite large and sent to Pathology. 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 At that time, it was not felt that she wasbleeding; however, by the second postoperative day, it became evident thatthis was indeed the case and she was having some intraabdominal bleeding. Herhemoglobin went from 15 to 7, and a CT revealed the presence of theintraabdominal and pelvic fluid as well. She was taken back to the operatingroom on 06/12/2017, where the blood was removed and the left cornua of theuterus and the infundibulopelvic ligament were repaired, where they had torn.Some peritoneum was repaired as well, and this was done close to thedescending colon. I had Dr. Odonnell, a general surgeon, look at this area ofrepair and he was satisfied that the bowel was not affected whatsoever. Thepatient tolerated these procedures very well and was transfused with herhemoglobin being approximately 10 at the time of her discharge. She wasdischarged on 06/14/2017, in excellent condition. She was taking a regulardiet and passing flatus. She was discharged home on [place] 5/325 one tab bymouth q.4 hours as needed for pain #30 with no refill and Motrin 800 mg 1 tabby mouth q.8 hours as needed for pain #30 with no refill. She will see me in1 week for postoperative followup.JERZY YOUNG 07/01/2017 11:30 [id number] 07/01/2017 12:52 JMA/MODLElectronically Signed By Jadiel Xavier M.D. on 15 Jul 2017 18:13:37 GMT Normal [facility] History And Physical-Dictated [facility], [place] [address]SEHR GREGORIA SERNA Ramon [facility] [id number] 1985DATE 06/09/2017PRE-SURGICAL HISTORY AND PHYSICALDATE OF OPERATIVE NNYEJBMIU68/11/2017This H and P was dictated from an office visit on 06/09/2017.CHIEF COMPLAINTPelvic mass.HISTORY OF PRESENT ILLNESSMsIlsa Serna is a 32-year-old female, 3, para 2, AB1. She was firstseen with complaints of abdominal pain back in May of 2017. At that time,there appeared to be some abdominal abnormalities which were nonspecific. Iwas told of the patient's abdominal pain through Dr. Moura's office and anultrasound was ordered. The patient presented for review of her ultrasound onJuly 3. At that time, the ultrasound revealed a 19 cm cystic multiloculatedmass felt to be the left ovary with the right ovary being normal at that time,and her uterus being normal. A CA-125 was performed which was 38.5. Thepatient returned for the review of the CA-125, and options for surgical careincluding removal of the ovary and cyst [place] to make a diagnosiswith the possibility of other surgery should it be malignant [place] INFORMATION ASSURANCE OFFICER oncologist for her initial surgery and furthersurgery at that time should the mass be malignant. Ms. Serna and theresa have decided to have her surgery here for removal of the ovary anddiagnosis. She will undergo open laparotomy with left oophorectomy on06/10/2017.PAST MEDICAL HISTORYThe patient has had 1 normal spontaneous vaginal delivery and 1 cesareansection. She has also had a miscarriage. The patient has had a ventralhernia repair earlier this year.SOCIAL HISTORYThe patient does not smoke.FAMILY HISTORYRemarkable for family members with prostate cancer, hyperlipoproteinemia,diab etes, and psychiatric disorders.REVIEW OF SYSTEMSPositive for stress-induced migraine headaches, and anxiety in the past.MEDICATIONSThe patient is not taking any medication at this time.ALLERGIESNo allergies to medication.PHYSICAL EXAMINATIONVital signs: At the time of her exam in the office, her blood pressure xec335/80, other vitals were stable.HEENT: Exam was clear.Heart: Normal.Lungs: Normal.Abdomen: Firm with a palpable mass that extends about 4-5 cm above theumbilicus. Bowel sounds are positive.Extremities: Grossly normal.Neurologic: Grossly normal.IMPRESSIONA 32-year-old female, 3, para 2, AB1 with a 19 cm left ovarian mass.PLANThe patient will undergo open laparotomy with left oophorectomy with removalof the large cystic mass on 06/10/2017.JERZY YOUNG 06/09/2017 20:16 [id number] 06/09/2017 20:59 JMA/MODLElectronically Signed By Jadiel Xavier M.D. on 10 Jun 2017 23:14:35 GMT Normal [facility] Operation-Procedure [facility], [place] [address]WXCF BALJIT GREGORIA Ramon [facility] [id number] 1985DATE 06/12/2017OPERATIVE REPORT / PROCEDURE NOTESURGEON BERTHA YOUNG, CAYLAREOPERATIVE DIAGNOSISPostoperative bleeding with anemia.POSTOPERATIVE DIAGNOSISPostoperative bleeding with anemia.PROCEDURERepair of rent in uterine cornu and infundibulopelvic ligament.ANESTHESIAGenera l.COMPLICATIONSNone.ESTIM ATED BLOOD LOSSNone.DISPOSITIONPatie nt was returned awake and stable to recovery room.REPORT OF THE OPERATIONThe patient was taken to the operating room and placed in the supine positionon the operating table. After successful induction of a general anesthetic,she was prepped and draped in the usual fashion for abdominal surgery. Herincision was opened by removing the subcutaneous dudley and by gentletraction. The suture in the fascia was and cut with the scissor and opened.The peritoneum was opened as well. The suction women's health care nurse practitioner was then used tosuction the blood from the pelvic cavity and also up from around the area ofthe liver and large and small bowel. This was very successful. The O'Moises-O'Pacheco self-retaining retractor was placed in the incision and the area ofbleeding isolated. The operative site of the previous left oophorectomy wasidentified and there appeared to be an area where the tissue had pulled apartand the cornu of the uterus was bleeding slightly as well as theinfundibulopelvic ligament. These were both crossclamped with hysterectomyclamps, and double tied, both suture tie and free tie of 0-Vicryl. Hemostasiswas excellent. There appeared to be some slight bleeding along the peritoneumof the infundibulopelvic ligament and this was sutured as well. Some of thearea close to the descending colon was sutured and I asked [facility], to come and look at the repair. He was very satisfied withthe repair and did not feel as though it compromised the bowel whatsoever.Deion was placed over the area of the operative field and the O'ConnorO'Pacheco self-retaining retractor removed from the incision. The peritoneumwas closed with 2-0 Vicryl suture in a running continuous fashion and thefascia closed with #1 Vicryl suture in a running continuous fashion. Thesubcutaneous tissue was made hemostatic and the skin closed with subcutaneousInsorb dudley. Steri-Strips were placed across the incision. The patientawakened and taken to the recovery room in excellent condition. Estimatedblood loss was minimal.JERZY YOUNG 07/01/2017 11:21 [id number] 07/01/2017 14:56 JMA/MODLElectronically Signed By Jadiel Xavier M.D. on 15 Jul 2017 18:13:34 GMT Normal [facility] CBC with Diffon 06-13-2017 Basophils Auto #/vol (Bld) 0.0 K/mcL Normal 0-0.2 [facility] Comment on above: Performed By: #### H CGQL ####Unless otherwise noted, all testing performed by [place] [phone]: [id number] Director: Shabbir Krishnan M.D. Basophils/100 WBC Auto (Bld) 0.3 % Normal [facility] Comment on above: Performed By: #### H CGQL ####Unless otherwise noted, all testing performed by [address]CLIA: [id number] Director: Shabbir Krishnan M.D. Eosinophils 0.1 K/mcL Normal 0-0.5 [facility] Comment on above: Performed By: #### H CGQL ####Unless otherwise noted, all testing performed by [place] [id number]: [id number] Director: Shabbir Krishnan M.D. Eosinophils/100 leukocytes 0.7 % Normal [facility] Comment on above: Performed By: #### H CGQL ####Unless otherwise noted, all testing performed by [place] [id number]: [id number] Director: Shabbir Krishnan M.D. Erythrocyte distribution width Auto Ratio (RBC) 15.3 % High 10.0-14.4 [facility] Comment on above: Performed By: #### H CGQL ####Unless otherwise noted, all testing performed by [facility] [address] [phone]: [id number] Director: Shabbir Krishnan M.D. Erythrocytes (RBC) 3.25 M/mcL Low 3.7-5.0 [facility] Comment on above: Performed By: #### H CGQL ####Unless otherwise noted, all testing performed by [address] [id number]: [id number] Director: Shabbir Krishnan M.D. Hematocrit (HCT) 29.5 % Low 34.4-44.8 [facility] Comment on above: Performed By: #### H CGQL ####Unless otherwise noted, all testing performed by [address] [id number]: [id number] Director: Shabbir Krishnan M.D. Hemoglobin mass conc (Bld) 10.2 g/dL Low 11.6-15.4 [facility] Comment on above: Performed By: #### H CGQL ####Unless otherwise noted, all testing performed by [address] [id number]: [id number] Director: Shabbir Krishnan M.D. Lymphocytes 2.1 K/mcL Normal 1.0-3.7 [facility] Comment on above: Performed By: #### H CGQL ####Unless otherwise noted, all testing performed by [address] [phone]: [id number] Director: Shabbir Krishnan M.D. Lymphocytes/100 leukocytes 26.0 % Normal [facility] Comment on above: Performed By: #### H CGQL ####Unless otherwise noted, all testing performed by [address] [phone]: [id number] Director: Shabbir Krishnan M.D. MCH 31.5 pg Normal 27.9-33.9 [facility] Comment on above: Performed By: #### H CGQL ####Unless otherwise noted, all testing performed by [address] [phone]: [id number] Director: Shabbir Krishnan M.D. MCHC mass conc (RBC) 34.7 g/dL Normal 33.1-35.1 [facility] Comment on above: Performed By: #### H CGQL ####Unless otherwise noted, all testing performed by [address] [phone]: [id number] Director: Shabbir Krishnan M.D. MCV 90.8 fL Normal 82.6-98.9 [facility] Comment on above: Performed By: #### H CGQL ####Unless otherwise noted, all testing performed by [address] [phone]: [id number] Director: Shabbir Krishnan M.D. Monocytes 0.7 K/mcL High 0.1-0.6 [facility] Comment on above: Performed By: #### H CGQL ####Unless otherwise noted, all testing performed by [address] [phone]: [id number] Director: Shabbir Krishnan M.D. Monocytes/100 leukocytes 8.8 % Normal [facility] Comment on above: Performed By: #### H CGQL ####Unless otherwise noted, all testing performed by [address] [phone]: [id number] Director: Shabbir Krishnan M.D. Neutrophils 5.1 K/mcL Normal 1.2-6.9 [facility] Comment on above: Performed By: #### H CGQL ####Unless otherwise noted, all testing performed by [place] [phone]: [id number] Director: Shabbir Krishnan M.D. Platelet mean volume (PMV) 8.7 fL Normal 7.0-10.6 [facility] Comment on above: Performed By: #### H CGQL ####Unless otherwise noted, all testing performed by [phone]: [id number] Director: Shabbir Krishnan M.D. Platelets 160 K/mcL Low 162-402 [facility] Comment on above: Performed By: #### H CGQL ####Unless otherwise noted, all testing performed by [place] [phone]: [id number] Director: Shabbir Krishnan M.D. Segmented Neut % 64.2 % Normal [facility] Comment on above: Performed By: #### H CGQL ####Unless otherwise noted, all testing performed by [place] [phone]: [id number] Director: Shabbir Krishnan M.D. WBC (Leukocytes) 7.9 K/mcL Normal 3.4-10.6 [facility] Comment on above: Performed By: #### H CGQL ####Unless otherwise noted, all testing performed by [place] [phone]: [id number] Director: Shabbir Krishnan M.D. CBC with Diffon 06-12-2017 Basophils Auto #/vol (Bld) 0.0 K/mcL Normal 0-0.2 [facility] Comment on above: Performed By: #### C BCDIF ####Unless otherwise noted, all testing performed by [address]8509CLIA: [id number] Director: Shabbir Krishnan M.D. Basophils/100 WBC Auto (Bld) 0.4 % Normal [facility] Comment on above: Performed By: #### C BCDIF ####Unless otherwise noted, all testing performed by [place] [phone]: [id number] Director: Shabbir Krishnan M.D. Eosinophils 0.1 K/mcL Normal 0-0.5 [facility] Comment on above: Performed By: #### C BCDIF ####Unless otherwise noted, all testing performed by [place] [phone]: [id number] Director: Shabbir Krishnan M.D. Eosinophils/100 leukocytes 1.1 % Normal [facility] Comment on above: Performed By: #### C BCDIF ####Unless otherwise noted, all testing performed by [address] [phone]: [id number] Director: Shabbir Krishnan M.D. Erythrocyte distribution width Auto Ratio (RBC) 12.8 % Normal 10.0-14.4 [facility] Comment on above: Performed By: #### C BCDIF ####Unless otherwise noted, all testing performed by [address] [phone]: [id number] Director: Shabbir Krishnan M.D. Erythrocytes (RBC) 2.27 M/mcL Low 3.7-5.0 [facility] Comment on above: Performed By: #### C BCDIF ####Unless otherwise noted, all testing performed by [address] [phone]: [id number] Director: Shabbir Krishnan M.D. Hematocrit (HCT) 21.0 % Low 34.4-44.8 [facility] Comment on above: Performed By: #### C BCDIF ####Unless otherwise noted, all testing performed by [address] [phone]: [id number] Director: Shabbir Krishnan M.D. Hemoglobin mass conc (Bld) 7.5 g/dL Low 11.6-15.4 [facility] Comment on above: Performed By: #### C BCDIF ####Unless otherwise noted, all testing performed by [address] [phone]: [id number] Director: Shabbir Krishnan M.D. Lymphocytes 1.5 K/mcL Normal 1.0-3.7 [facility] Comment on above: Performed By: #### C BCDIF ####Unless otherwise noted, all testing performed by [address] [phone]: [id number] Director: Shabbir Krishnan M.D. Lymphocytes/100 leukocytes 29.4 % Normal [facility] Comment on above: Performed By: #### C BCDIF ####Unless otherwise noted, all testing performed by [address] [phone]: [id number] Director: Shabbir Krishnan M.D. MCH 33.1 pg Normal 27.9-33.9 [facility] Comment on above: Performed By: #### C BCDIF ####Unless otherwise noted, all testing performed by [address] [phone]: [id number] Director: Shabbir Krishnan M.D. MCHC mass conc (RBC) 35.7 g/dL High 33.1-35.1 [facility] Comment on above: Performed By: #### C BCDIF ####Unless otherwise noted, all testing performed by [address] [phone]: [id number] Director: Shabbir Krishnan M.D. MCV 92.6 fL Normal 82.6-98.9 [facility] Comment on above: Performed By: #### C BCDIF ####Unless otherwise noted, all testing performed by [facility] [address] [phone]: [id number] Director: Shabbir Krishnan M.D. Monocytes 0.5 K/mcL Normal 0.1-0.6 [facility] Comment on above: Performed By: #### C BCDIF ####Unless otherwise noted, all testing performed by [address] [phone]: [id number] Director: Shabbir Krishnan M.D. Monocytes/100 leukocytes 9.2 % Normal [facility] Comment on above: Performed By: #### C BCDIF ####Unless otherwise noted, all testing performed by [address] [phone]: [id number] Director: Shabbir Krishnan M.D. Neutrophils 3.0 K/mcL Normal 1.2-6.9 [facility] Comment on above: Performed By: #### C BCDIF ####Unless otherwise noted, all testing performed by [address] [phone]: [id number] Director: Shabbir Krishnan M.D. Platelet mean volume (PMV) 8.4 fL Normal 7.0-10.6 [facility] Comment on above: Performed By: #### C BCDIF ####Unless otherwise noted, all testing performed by [address] [phone]: [id number] Director: Shabbir Krishnan M.D. Platelets 146 K/mcL Low 162-402 [facility] Comment on above: Performed By: #### C BCDIF ####Unless otherwise noted, all testing performed by [address] [phone]: [id number] Director: Shabbir Krishnan M.D. Segmented Neut % 59.9 % Normal [facility] Comment on above: Performed By: #### C BCDIF ####Unless otherwise noted, all testing performed by [address] [phone]: [id number] Director: Shabbir Krishnan M.D. WBC (Leukocytes) 5.0 K/mcL Normal 3.4-10.6 [facility] Comment on above: Performed By: #### C BCDIF ####Unless otherwise noted, all testing performed by [address] [phone]: [id number] Director: Shabbir Krishnan M.D. Hematocriton 06-12-2017 Hematocrit (HCT) 25.2 % Low 34.4-44.8 [facility] Comment on above: Performed By: #### H CGQL ####Unless otherwise noted, all testing performed by [address] [phone]: [id number] Director: Shabbir Krishnan M.D. Hemoglobinon 06-12-2017 Hemoglobin mass conc (Bld) 8.7 g/dL Low 11.6-15.4 [facility] Comment on above: Performed By: #### H CGQL ####Unless otherwise noted, all testing performed by [address] [phone]: [id number] Director: Shabbir Krishnan M.D. Hgb and Hcton 06-12-2017 Hematocrit (HCT) 27.4 % Low 34.4-44.8 [facility] Comment on above: Performed By: #### H CGQL ####Unless otherwise noted, all testing performed by [address] [phone]: [id number] Director: Shabbir Krishnan M.D. Hemoglobin mass conc (Bld) 9.3 g/dL Low 11.6-15.4 [facility] Comment on above: Performed By: #### H CGQL ####Unless otherwise noted, all testing performed by [address] [phone]: [id number] Director: Shabbir Krishnan M.D. Istat CG8 Panelon 06-12-2017 Base Excess -1 mmol/L Normal -2-3 [facility] Comment on above: Performed By: #### H CGQL ####Unless otherwise noted, all testing performed by [address] [phone]: [id number] Director: Shabbir Krishnan M.D. Bicarbonate (HCO3) 25 mmol/L Normal 22-26 [facility] Comment on above: Performed By: #### H CGQL ####Unless otherwise noted, all testing performed by [address] [phone]: [id number] Director: Shabbir Krishnan M.D. CO2 49 mm Hg High 35.0-45.0 [facility] Comment on above: Performed By: #### H CGQL ####Unless otherwise noted, all testing performed by [address] [phone]: [id number] Director: Shabbir Krishnan M.D. CO2 27 mmol/L Normal 23-27 [facility] Comment on above: Performed By: #### H CGQL ####Unless otherwise noted, all testing performed by [address] [phone]: [id number] Director: Shabbir Krishnan M.D. Glucose mass conc 108 mg/dL High 70-99 [facility] Comment on above: Performed By: #### H CGQL ####Unless otherwise noted, all testing performed by [address] [phone]: [id number] Director: Shabbir Krishnan M.D. Hematocrit (HCT) 24 % Low 38.0-51.0 [facility] Comment on above: Performed By: #### H CGQL ####Unless otherwise noted, all testing performed by [address] [phone]: [id number] Director: Shabbir Krishnan M.D. Hemoglobin mass conc (Bld) 8.2 g/dL Low 12.0-17.0 [facility] Comment on above: Performed By: #### H CGQL ####Unless otherwise noted, all testing performed by [address] [phone]: [id number] Director: Shabbir Krishnan M.D. Ionized Calcm 1.07 mmol/L Low 1.12-1.32 [facility] Comment on above: Performed By: #### H CGQL ####Unless otherwise noted, all testing performed by [address] [phone]: [id number] Director: Shabbir Krishnan M.D. O2 saturation 100 % High 95-98 [facility] Comment on above: Performed By: #### H CGQL ####Unless otherwise noted, all testing performed by [address] [phone]: [id number] Director: Shabbir Krishnan M.D. Oxygen in arterial blood 225 mm Hg High 80-105 [facility] Comment on above: Performed By: #### H CGQL ####Unless otherwise noted, all testing performed by [address] [phone]: [id number] Director: Shabbir Krishnan M.D. pH of blood 7.32 [pH] Low 7.350-7.450 [facility] Comment on above: Performed By: #### H CGQL ####Unless otherwise noted, all testing performed by [address] [phone]: [id number] Director: Shabbir Krishnan M.D. Potassium molar conc 3.7 mmol/L Normal 3.5-4.9 [facility] Comment on above: Performed By: #### H CGQL ####Unless otherwise noted, all testing performed by [address] [phone]: [id number] Director: Shabbir Krishnan M.D. Sodium 139 mmol/L Normal 136-141 [facility] Comment on above: Performed By: #### H CGQL ####Unless otherwise noted, all testing performed by [address] [phone]: [id number] Director: Shabbir Krishnan M.D. Source, Blood Gas Arterial Blood Normal [place] Comment on above: Performed By: #### H CGQL ####Unless otherwise noted, all testing performed by [place] [phone]: [id number] Director: Shabbir Krishnan M.D. Base Excess -1 mmol/L Normal -2-3 [facility] Comment on above: Performed By: #### H CGQL ####Unless otherwise noted, all testing performed by [place] [phone]: [id number] Director: Shabbir Krishnan M.D. Bicarbonate (HCO3) 23 mmol/L Normal 22-26 [facility] Comment on above: Performed By: #### H CGQL ####Unless otherwise noted, all testing performed by [place] [phone]: [id number] Director: Shabbir Krishnan M.D. CO2 24 mmol/L Normal 23-27 [facility] Comment on above: Performed By: #### H CGQL ####Unless otherwise noted, all testing performed by [place] [phone]: [id number] Director: Shabbir Krishnan M.D. CO2 34 mm Hg Low 35.0-45.0 [facility] Comment on above: Performed By: #### H CGQL ####Unless otherwise noted, all testing performed by [address] [phone]: [id number] Director: Shabbir Krishnan M.D. Glucose mass conc 105 mg/dL High 70-99 [facility] Comment on above: Performed By: #### H CGQL ####Unless otherwise noted, all testing performed by [address] [phone]: [id number] Director: Shabbir Krishnan M.D. Hematocrit (HCT) 21 % Low 38.0-51.0 [facility] Comment on above: Performed By: #### H CGQL ####Unless otherwise noted, all testing performed by [address] [phone]: [id number] Director: Shabbir Krishnan M.D. Hemoglobin mass conc (Bld) 7.1 g/dL Low 12.0-17.0 [facility] Comment on above: Performed By: #### H CGQL ####Unless otherwise noted, all testing performed by [address] [phone]: [id number] Director: Shabbir Krishnan M.D. Ionized Calcm 0.98 mmol/L Low 1.12-1.32 [facility] Comment on above: Performed By: #### H CGQL ####Unless otherwise noted, all testing performed by [address] [phone]: [id number] Director: Shabbir Krishnan M.D. O2 saturation 100 % High 95-98 [facility] Comment on above: Performed By: #### H CGQL ####Unless otherwise noted, all testing performed by [address] [phone]: [id number] Director: Shabbir Krishnan M.D. Oxygen in arterial blood 163 mm Hg High 80-105 [facility] Comment on above: Performed By: #### H CGQL ####Unless otherwise noted, all testing performed by [address] [phone]: [id number] Director: Shabbir Krishnan M.D. pH of blood 7.44 [pH] Normal 7.350-7.450 [facility] Comment on above: Performed By: #### H CGQL ####Unless otherwise noted, all testing performed by [address] [phone]: [id number] Director: Shabbir Krishnan M.D. Potassium molar conc 3.8 mmol/L Normal 3.5-4.9 [facility] Comment on above: Performed By: #### H CGQL ####Unless otherwise noted, all testing performed by [address] [phone]: [id number] Director: Shabbir Krishnan M.D. Sodium 136 mmol/L Normal 136-141 [facility] Comment on above: Performed By: #### H CGQL ####Unless otherwise noted, all testing performed by [address] [phone]: [id number] Director: Shabbir Krishnan M.D. Source, Blood Gas Arterial Blood Normal [place] Comment on above: Performed By: #### H CGQL ####Unless otherwise noted, all testing performed by [address] [phone]: [id number] Director: Shabbir Krishnan M.D. Base Excess 3 mmol/L Normal -2-3 [facility] Comment on above: Performed By: #### H CGQL ####Unless otherwise noted, all testing performed by [address] [phone]: [id number] Director: Shabbir Krishnan M.D. Bicarbonate (HCO3) 28 mmol/L High 22-26 [facility] Comment on above: Performed By: #### H CGQL ####Unless otherwise noted, all testing performed by [address] [phone]: [id number] Director: Shabbir Krishnan M.D. CO2 47 mm Hg High 35.0-45.0 [facility] Comment on above: Performed By: #### H CGQL ####Unless otherwise noted, all testing performed by [address] [phone]: [id number] Director: Shabbir Krishnan M.D. CO2 30 mmol/L High 23-27 [facility] Comment on above: Performed By: #### H CGQL ####Unless otherwise noted, all testing performed by [address] [phone]: [id number] Director: Shabbir Krishnan M.D. Glucose mass conc 96 mg/dL Normal 70-99 [facility] Comment on above: Performed By: #### H CGQL ####Unless otherwise noted, all testing performed by [address] [phone]: [id number] Director: Shabbir Krishnan M.D. Hematocrit (HCT) 19 % Low 38.0-51.0 [facility] Comment on above: Performed By: #### H CGQL ####Unless otherwise noted, all testing performed by [address] [phone]: [id number] Director: Shabbir Krishnan M.D. Hemoglobin mass conc (Bld) 6.5 g/dL Low 12.0-17.0 [facility] Comment on above: Performed By: #### H CGQL ####Unless otherwise noted, all testing performed by [address] [phone]: [id number] Director: Shabbir Krishnan M.D. Ionized Calcm 1.07 mmol/L Low 1.12-1.32 [facility] Comment on above: Performed By: #### H CGQL ####Unless otherwise noted, all testing performed by [address] [phone]: [id number] Director: Shabbir Krishnan M.D. O2 saturation 100 % High 95-98 [facility] Comment on above: Performed By: #### H CGQL ####Unless otherwise noted, all testing performed by [place] [phone]: [id number] Director: Shabbir Krishnan M.D. Oxygen in arterial blood 344 mm Hg High 80-105 [facility] Comment on above: Performed By: #### H CGQL ####Unless otherwise noted, all testing performed by [place] [phone]: [id number] Director: Shabbir Krishnan M.D. pH of blood 7.39 [pH] Normal 7.350-7.450 [facility] Comment on above: Performed By: #### H CGQL ####Unless otherwise noted, all testing performed by [place] [phone]: [id number] Director: Shabbir Krishnan M.D. Potassium molar conc 4.0 mmol/L Normal 3.5-4.9 [facility] Comment on above: Performed By: #### H CGQL ####Unless otherwise noted, all testing performed by [place] [phone]: [id number] Director: Shabbir Krishnan M.D. Sodium 139 mmol/L Normal 136-141 [facility] Comment on above: Performed By: #### H CGQL ####Unless otherwise noted, all testing performed by [place] [phone]: [id number] Director: Shabbir Krishnan M.D. Source, Blood Gas Arterial Blood Normal [place] Comment on above: Performed By: #### H CGQL ####Unless otherwise noted, all testing performed by [address] [phone]: [id number] Director: Shabbir Krishnan M.D. Type and Marvin 06-12-2017 Erythrocytes (RBC) ABO: ARh: PositiveAntibody Screen: NegativeLeuko-reduced RBCs: PRBC, [place] [id number] APOS [id number] Crossmatch data- 06/12/2017 10:30 CCBROWN IS 06/12/2017 10:33 KPOTTER PT 06/13/2017 06:09 JKCARROLLLeuko-reduced RBCs: PRBC, [place] [id number] APOS [id number] Crossmatch data- XM 06/12/2017 10:30 CCBROWN IS 06/12/2017 11:37 KPOTTER PT 06/13/2017 06:09 JKCARROLLLeuko-reduced RBCs: PRBC, [place] [id number] APOS [id number] Crossmatch data- 06/12/2017 11:45 CCBROWN RE 06/15/2017 05:49 CSPRENGLeuko-reduced RBCs: PRBC, [place] [id number] APOS [id number] Crossmatch data- XM 06/12/2017 11:45 CCBROWN RE 06/15/2017 05:49 CSPRENG Normal [facility] Comment on above: Performed By: #### X MATCH ####Unless otherwise noted, all testing performed by [address] [phone]: [id number] Director: Shabbir Krishnan M.D. CBC with Diffon 06-11-2017 Basophils Auto #/vol (Bld) 0.0 K/mcL Normal 0-0.2 [facility] Comment on above: Performed By: #### C BCDIF ####Unless otherwise noted, all testing performed by [place] [phone]: [id number] Director: Shabbir Krishnan M.D. Basophils/100 WBC Auto (Bld) 0.2 % Normal [facility] Comment on above: Performed By: #### C BCDIF ####Unless otherwise noted, all testing performed by [address]8509CLIA: [id number] Director: Shabbir Krishnan M.D. Eosinophils 0.0 K/mcL Normal 0-0.5 [facility] Comment on above: Performed By: #### C BCDIF ####Unless otherwise noted, all testing performed by [address]8509CLIA: [id number] Director: Shabbir Krishnan M.D. Eosinophils/100 leukocytes 0.2 % Normal [facility] Comment on above: Performed By: #### C BCDIF ####Unless otherwise noted, all testing performed by [address]8509CLIA: [id number] Director: Shabbir Krishnan M.D. Erythrocyte distribution width Auto Ratio (RBC) 12.9 % Normal 10.0-14.4 [facility] Comment on above: Performed By: #### C BCDIF ####Unless otherwise noted, all testing performed by [address] [phone]: [id number] Director: Shabbir Krishnan M.D. Erythrocytes (RBC) 2.75 M/mcL Low 3.7-5.0 [facility] Comment on above: Performed By: #### C BCDIF ####Unless otherwise noted, all testing performed by [address] [phone]: [id number] Director: Shabbir Krishnan M.D. Hematocrit (HCT) 25.9 % Low 34.4-44.8 [facility] Comment on above: Performed By: #### C BCDIF ####Unless otherwise noted, all testing performed by [address] [phone]: [id number] Director: Shabbir Krishnan M.D. Hemoglobin mass conc (Bld) 9.0 g/dL Low 11.6-15.4 [facility] Comment on above: Performed By: #### C BCDIF ####Unless otherwise noted, all testing performed by [address] [phone]: [id number] Director: Shabbir Krishnan M.D. Lymphocytes 1.3 K/mcL Normal 1.0-3.7 [facility] Comment on above: Performed By: #### C BCDIF ####Unless otherwise noted, all testing performed by [address] [phone]: [id number] Director: Shabbir Krishnan M.D. Lymphocytes/100 leukocytes 15.3 % Normal [facility] Comment on above: Performed By: #### C BCDIF ####Unless otherwise noted, all testing performed by [address] [phone]: [id number] Director: Shabbir Krishnan M.D. MCH 32.6 pg Normal 27.9-33.9 [facility] Comment on above: Performed By: #### C BCDIF ####Unless otherwise noted, all testing performed by [place] [id number]: [id number] Director: Shabbir Krishnan M.D. MCHC mass conc (RBC) 34.7 g/dL Normal 33.1-35.1 [facility] [place] Comment on above: Performed By: #### C BCDIF ####Unless otherwise noted, all testing performed by [address] [phone]: [id number] Director: Shabbir Krishnan M.D. MCV 93.9 fL Normal 82.6-98.9 [facility] Comment on above: Performed By: #### C BCDIF ####Unless otherwise noted, all testing performed by [address] [phone]: [id number] Director: Shabbir Krishnan M.D. Monocytes 0.8 K/mcL High 0.1-0.6 [facility] Comment on above: Performed By: #### C BCDIF ####Unless otherwise noted, all testing performed by [place] [phone]: [id number] Director: Shabbir Krishnan M.D. Monocytes/100 leukocytes 9.8 % Normal [facility] Comment on above: Performed By: #### C BCDIF ####Unless otherwise noted, all testing performed by [place] [phone]: [id number] Director: Shabbir Krishnan M.D. Neutrophils 6.3 K/mcL Normal 1.2-6.9 [facility] Comment on above: Performed By: #### C BCDIF ####Unless otherwise noted, all testing performed by [place] [phone]: [id number] Director: Shabbir Krishnan M.D. Platelet mean volume (PMV) 8.8 fL Normal 7.0-10.6 [facility] Comment on above: Performed By: #### C BCDIF ####Unless otherwise noted, all testing performed by [place] [phone]: [id number] Director: Shabbir Krishnan M.D. Platelets 200 K/mcL Normal 162-402 [facility] Comment on above: Performed By: #### C BCDIF ####Unless otherwise noted, all testing performed by [address] [phone]: [id number] Director: Shabbir Krishnan M.D. Segmented Neut % 74.5 % Normal [facility] Comment on above: Performed By: #### C BCDIF ####Unless otherwise noted, all testing performed by [address], [place] [phone]: [id number] Director: Shabbir Krishnan M.D. WBC (Leukocytes) 8.4 K/mcL Normal 3.4-10.6 [facility] Comment on above: Performed By: #### C BCDIF ####Unless otherwise noted, all testing performed by [address] [phone]: [id number] Director: Shabbir Krishnan M.D. Basophils Auto #/vol (Bld) 0.0 K/mcL Normal 0-0.2 [facility] Comment on above: Performed By: #### C BCDIF ####Unless otherwise noted, all testing performed by [address] [phone]: [id number] Director: Shabbir Krishnan M.D. Basophils/100 WBC Auto (Bld) 0.0 % Normal [facility] Comment on above: Performed By: #### C BCDIF ####Unless otherwise noted, all testing performed by [address] [phone]: [id number] Director: Shabbir Krishnan M.D. Eosinophils 0.0 K/mcL Normal 0-0.5 [facility] Comment on above: Performed By: #### C BCDIF ####Unless otherwise noted, all testing performed by [address] [phone]: [id number] Director: Shabbir Krishnan M.D. Eosinophils/100 leukocytes 0.0 % Normal [facility] Comment on above: Performed By: #### C BCDIF ####Unless otherwise noted, all testing performed by [address] [phone]: [id number] Director: Shabbir Krishnan M.D. Erythrocyte distribution width Auto Ratio (RBC) 12.9 % Normal 10.0-14.4 [facility] Comment on above: Performed By: #### C BCDIF ####Unless otherwise noted, all testing performed by [address] [phone]: [id number] Director: Shabbir Krishnan M.D. Erythrocytes (RBC) 3.04 M/mcL Low 3.7-5.0 [facility] Comment on above: Performed By: #### C BCDIF ####Unless otherwise noted, all testing performed by [address] [phone]: [id number] Director: Shabbir Krishnan M.D. Hematocrit (HCT) 28.2 % Low 34.4-44.8 [facility] Comment on above: Performed By: #### C BCDIF ####Unless otherwise noted, all testing performed by [address] [phone]: [id number] Director: Shabbir Krishnan M.D. Hemoglobin mass conc (Bld) 9.9 g/dL Low 11.6-15.4 [facility] Comment on above: Performed By: #### C BCDIF ####Unless otherwise noted, all testing performed by [address] [phone]: [id number] Director: Shabbir Krishnan M.D. Lymphocytes 0.5 K/mcL Low 1.0-3.7 [facility] Comment on above: Performed By: #### C BCDIF ####Unless otherwise noted, all testing performed by [address] [phone]: [id number] Director: Shabbir Krishnan M.D. Lymphocytes/100 leukocytes 4.9 % Normal [facility] Comment on above: Performed By: #### C BCDIF ####Unless otherwise noted, all testing performed by [address] [phone]: [id number] Director: Shabbir Krishnan M.D. MCH 32.7 pg Normal 27.9-33.9 [facility] Comment on above: Performed By: #### C BCDIF ####Unless otherwise noted, all testing performed by [address] [phone]: [id number] Director: Shabbir Krishnan M.D. MCHC mass conc (RBC) 35.2 g/dL High 33.1-35.1 [facility] Comment on above: Performed By: #### C BCDIF ####Unless otherwise noted, all testing performed by [address] [phone]: [id number] Director: Shabbir Krishnan M.D. MCV 92.8 fL Normal 82.6-98.9 [facility] Comment on above: Performed By: #### C BCDIF ####Unless otherwise noted, all testing performed by [address] [phone]: [id number] Director: Shabbir Krishnan M.D. Monocytes 0.7 K/mcL High 0.1-0.6 [facility] Comment on above: Performed By: #### C BCDIF ####Unless otherwise noted, all testing performed by [address] [phone]: [id number] Director: Shabbir Krishnan M.D. Monocytes/100 leukocytes 6.4 % Normal [facility] Comment on above: Performed By: #### C BCDIF ####Unless otherwise noted, all testing performed by [address] [phone]: [id number] Director: Shabbir Krishnan M.D. Neutrophils 9.8 K/mcL High 1.2-6.9 [facility] Comment on above: Performed By: #### C BCDIF ####Unless otherwise noted, all testing performed by [address] [phone]: [id number] Director: Shabbir Krishnan M.D. Platelet mean volume (PMV) 8.1 fL Normal 7.0-10.6 [facility] Comment on above: Performed By: #### C BCDIF ####Unless otherwise noted, all testing performed by [address] [phone]: [id number] Director: Shabbir Krishnan M.D. Platelets 215 K/mcL Normal 162-402 [facility] Comment on above: Performed By: #### C BCDIF ####Unless otherwise noted, all testing performed by [address] [phone]: [id number] Director: Shabbir Krishnan M.D. Segmented Neut % 88.7 % Normal [facility] Comment on above: Performed By: #### C BCDIF ####Unless otherwise noted, all testing performed by [address] [phone]: [id number] Director: Shabbir Krishnan M.D. WBC (Leukocytes) 11.0 K/mcL High 3.4-10.6 [facility] Comment on above: Performed By: #### C BCDIF ####Unless otherwise noted, all testing performed by [address] [phone]: [id number] Director: Shabbir Krishnan M.D. CT ABDO,PELVIS W/ IV AND ORA L CONTon 06-11-2017 CT ABDO,PELVIS W/ IV AND ORAL CONT Final ReportAccession No: [id number] Performed: Jun 11 2017 6:48PMExamination: CT ABDO,PELVIS W/ IV AND ORAL CONTHISTORY: Abdominal pain with post-operative bleeding.CT ABDOMEN AND PELVIS 06/11/2017, 6:48 P.M.:COMPARISON: None available.TECHNIQUE: Contrast-enhanced images of the abdomen and pelvis wereobtained and submitted for interpretation.FINDINGS: Bibasilar lung opacities suggest atelectasis. There are smallbibasal effusions. There is free intra-abdominal fluid. The liver andspleen return a normal attenuation. The pancreas and gallbladder appeargrossly unremarkable. The gallbladder is distended. Recommend correlationwith ultrasound. Both kidneys enhance normally. There is no focal adrenalmass. The aorta and IVC demonstrate no acute findings. The stomach iscollapsed and thickened. There is a fluid level within the stomach. Thereis distention of the small bowel loops which could be due to developingobstruction or ileus.There is abundant soft tissue inflammatory change along the anteriorabdominal wall with features most consistent with prior surgery. Theuterus is irregular, and poorly visualized. There is abundant pelvicfluid. Please correlate for recent surgery. Adnexal densities requirecorrelation with pelvic ultrasound. There is moderate severeconstipation. There is a Nagy catheter. The urinary bladder is notclearly identified. There is a small amount of free air within thepelvis. There is thickening of the small bowel loops. The large bowelloops are not dilated. The visualized osseous structures demonstrate nodestructive abnormality. Loculated fluid collections within the pelvisquestionable for developing abscesses, versus post-op seroma, or lymphoma.IMPRESSION:1. Small bibasal effusions.2. Distended small bowel loops which could be due to developingobstruction or ileus.3. Abundant soft tissue inflammatory change is present along the anteriorabdominal wall with features most consistent with prior surgery. Theuterus appears irregular and is poorly visualized with evidence ofabundant pelvic fluid. Please correlate for recent surgery. There areloculated fluid collections in the pelvis which may represent developingabscesses versus post-operative seroma or lymphoma.4. Small amount of free air is identified in the pelvis.Valerio Frye Md.Electronically Signed by and VerifiedDate Report Signed: 06/12/2017 10:44:20 AMInterpreting Physician: TUSHAR,Trans: [id number] : cc: Normal [facility] Blood Gas, Arterialon 2016 Aa Ratio 62 % Normal [facility] Comment on above: Performed By: #### A BG ####Unless otherwise noted, all testing performed by [facility], [place] [phone]: [id number] Director: Shabbir Krishnan M.D. Aa Ratio Please disregard, duplicate results Normal [facility] Comment on above: Result Comment: Test Aa Ratio with result of Please disregard, duplicate results wasoriginally reported as 62 and was changed on 06/11/2017 13:58 by KPHALR Performed By: #### A BG ####Unless otherwise noted, all testing performed by [address] [phone]: [id number] Director: Shabbir Krishnan M.D. DdE2zecgsqvp 57.4 mm Hg Normal [facility] Comment on above: Performed By: #### A BG ####Unless otherwise noted, all testing performed by [address] [phone]: [id number] Director: Shabbir Krishnan M.D. BvV7bijxzmdl Please disregard, duplicate results Normal [facility] Comment on above: Result Comment: Test KdI8pukzksre with result of Please disregard, duplicate results wasoriginally reported as 57.4 and was changed on 06/11/2017 13:58 by [facility] Performed By: #### A BG ####Unless otherwise noted, all testing performed by [address] [phone]: [id number] Director: Shabbir Krishnan M.D. Base Excess -3.2 mmol/L Low -22 [facility] Comment on above: Performed By: #### A BG ####Unless otherwise noted, all testing performed by [address] [phone]: [id number] Director: Shabbir Krishnan M.D. Base Excess Please disregard, duplicate results Normal 22 [facility] Comment on above: Result Comment: Test Base Excess with result of Please disregard, duplicate results wasoriginally reported as -3.2 and was changed on 06/11/2017 13:58 by [facility] Performed By: #### A BG ####Unless otherwise noted, all testing performed by [address] [phone]: [id number] Director: Shabbir Krishnan M.D. Bicarbonate (HCO3) 21.6 mmol/L Low 22-26 [facility] Comment on above: Performed By: #### A BG ####Unless otherwise noted, all testing performed by [address] [phone]: [id number] Director: Shabbir Krishnan M.D. Bicarbonate (HCO3) Please disregard, duplicate results Normal [address] Comment on above: Result Comment: Test HCO3 with result of Please disregard, duplicate results wasoriginally reported as 21.6 and was changed on 06/11/2017 13:58 by [facility] Performed By: #### A BG ####Unless otherwise noted, all testing performed by [address] [phone]: [id number] Director: Shabbir Krishnan M.D. BIPAP/CPAP Please disregard, duplicate results Normal [facility] Comment on above: Result Comment: Test BIPAP/CPAP with result of Please disregard, duplicate results wasoriginally reported as N/A and was changed on 06/11/2017 13:58 by [facility] Performed By: #### A BG ####Unless otherwise noted, all testing performed by [address] [phone]: [id number] Director: Shabbir Krishnan M.D. BIPAP/CPAP N/A Normal [facility] Comment on above: Performed By: #### A BG ####Unless otherwise noted, all testing performed by [address] [phone]: [id number] Director: Shabbir Krishnan M.D. BIPAP/CPAP Set Please disregard, duplicate results Normal [facility] Comment on above: Result Comment: Test BIPAP/CPAP Set with result of Please disregard, duplicate resultswas originally reported as NA and was changed on 06/11/2017 13:58 byKPHALR Performed By: #### A BG ####Unless otherwise noted, all testing performed by [address] [phone]: [id number] Director: Shabbir Krishnan M.D. BIPAP/CPAP Set Normal [facility] Comment on above: Performed By: #### A BG ####Unless otherwise noted, all testing performed by [address] [phone]: [id number] Director: Shabbir Krishnan M.D. Body temperature Please disregard, duplicate results Normal 36.0-38.0 [facility] Comment on above: Result Comment: Test Temperature (ABG) with result of Please disregard, duplicateresults was originally reported as 34.0 and was changed on 06/11/201713:58 by KPHALR Performed By: #### A BG ####Unless otherwise noted, all testing performed by [address] [phone]: [id number] Director: Shabbir Krishnan M.D. Body temperature 34.0 Celsius Low 36.0-38.0 [facility] Comment on above: Performed By: #### A BG ####Unless otherwise noted, all testing performed by [address] [phone]: [id number] Director: Shabbir Krishnan M.D. CO2 Please disregard, duplicate results Normal 35.0-45.0 [facility] Comment on above: Result Comment: Test PCO2 with result of Please disregard, duplicate results wasoriginally reported as 38.0 and was changed on 06/11/2017 13:58 by [facility] Performed By: #### A BG ####Unless otherwise noted, all testing performed by [address] [phone]: [id number] Director: Shabbir Krishnan M.D. Result Comment: Test pCO2 (temp conv.) with result of Please disregard, duplicateresults was originally reported as 33.3 and was changed on 06/11/201713:58 by [facility] CO2 38.0 mm Hg Normal 35.0-45.0 [facility] Comment on above: Performed By: #### A BG ####Unless otherwise noted, all testing performed by [address] [phone]: [id number] Director: Shabbir Krishnan M.D. CO2 33.3 mm Hg Low 35.0-45.0 [facility] Comment on above: Performed By: #### A BG ####Unless otherwise noted, all testing performed by [address] [phone]: [id number] Director: Shabbir Krishnan M.D. Drawn By (ABG) Please disregard, duplicate results Normal [facility] Comment on above: Result Comment: Test Drawn By (ABG) with result of Please disregard, duplicate resultswas originally reported as cdm and was changed on 06/11/2017 13:58 byHALR Performed By: #### A BG ####Unless otherwise noted, all testing performed by [address] [phone]: [id number] Director: Shabbir Krishnan M.D. Drawn By (AB) [facility] Comment on above: Performed By: #### A BG ####Unless otherwise noted, all testing performed by [address] [phone]: [id number] Director: Shabbir Krishnan M.D. FIO2 Please disregard, duplicate results Normal 21-100 [facility] Comment on above: Result Comment: Test FIO2 with result of Please disregard, duplicate results wasoriginally reported as 28.0 and was changed on 06/11/2017 13:58 by [facility] Performed By: #### A BG ####Unless otherwise noted, all testing performed by [address] [phone]: [id number] Director: Shabbir Krishnan M.D. FIO2 28.0 % Normal 21-100 [facility] Comment on above: Performed By: #### A BG ####Unless otherwise noted, all testing performed by [address] [phone]: [id number] Director: Shabbir Krishnan M.D. Hematocrit (HCT) Please disregard, duplicate results Normal 35-45 [facility] Comment on above: Result Comment: Test Hematocrit (ABG) with result of Please disregard, duplicate resultswas originally reported as 33 and was changed on 06/11/2017 13:58 [facility] Performed By: #### A BG ####Unless otherwise noted, all testing performed by [address] [phone]: [id number] Director: Shabbir Krishnan M.D. Hematocrit (HCT) 33 % Low 35-45 [facility] Comment on above: Performed By: #### A BG ####Unless otherwise noted, all testing performed by [address] [phone]: [id number] Director: Shabbir Krishnan M.D. Hemoglobin mass conc (Bld) Please disregard, duplicate results Normal 0.0-5.0 [facility] Comment on above: Result Comment: Test Carboxyhemoglobin with result of Please disregard, duplicateresults was originally reported as 0.3 and was changed on 06/11/201713:58 by [facility] Performed By: #### A BG ####Unless otherwise noted, all testing performed by [address] [phone]: [id number] Director: Shabbir Krishnan M.D. Result Comment: Test Hemoglobin O2 Sat. with result of Please disregard, duplicateresults was originally reported as 98.1 and was changed on 06/11/201713:58 by [facility] Result Comment: Test Methemoglobin with result of Please disregard, duplicate resultswas originally reported as 0.0 and was changed on 06/11/2017 13:58 [facility] Result Comment: Test O2 Hemoglobin with result of Please disregard, duplicate resultswas originally reported as 97.8 and was changed on 06/11/2017 13:58 [facility] Result Comment: Test Hemoglobin (ABG) with result of Please disregard, duplicate resultswas originally reported as 11.2 and was changed on 06/11/2017 13:58 [facility] Result Comment: Test DeOxyhemoglobin (HHB) with result of Please disregard, duplicateresults was originally reported as 1.9 and was changed on 06/11/201713:58 by [facility] Hemoglobin mass conc (Bld) 97.8 % Normal 91-99 [facility] Comment on above: Performed By: #### A BG ####Unless otherwise noted, all testing performed by [address] [phone]: [id number] Director: Shabbir Krishnan M.D. Hemoglobin mass conc (Bld) 0.3 % Normal <2 [facility] Comment on above: Performed By: #### A BG ####Unless otherwise noted, all testing performed by [address] [phone]: [id number] Director: Shabbir Krishnan M.D. Hemoglobin mass conc (Bld) 98.1 % Normal 92.0-98.5 [facility] Comment on above: Performed By: #### A BG ####Unless otherwise noted, all testing performed by [address] [phone]: [id number] Director: Shabbir Krishnan M.D. Hemoglobin mass conc (Bld) 0.0 % Normal <1 [facility] Comment on above: Performed By: #### A BG ####Unless otherwise noted, all testing performed by [address] [phone]: [id number] Director: Shabbir Krishnan M.D. Hemoglobin mass conc (Bld) 11.2 g/dL Low 12-18 [facility] Comment on above: Performed By: #### A BG ####Unless otherwise noted, all testing performed by [address] [phone]: [id number] Director: Shabbir Krishnan M.D. Hemoglobin mass conc (Bld) 1.9 % Normal 0.0-5.0 [facility] Comment on above: Performed By: #### A BG ####Unless otherwise noted, all testing performed by [address] [phone]: [id number] Director: Shabbir Krishnan M.D. Liters per minute 2.00 Liters/min Normal [facility] Comment on above: Performed By: #### A BG ####Unless otherwise noted, all testing performed by [address] [phone]: [id number] Director: Shabbir Krishnan M.D. Liters per minute Please disregard, duplicate results Normal [facility] Comment on above: Result Comment: Test Liters per minute with result of Please disregard, duplicateresults was originally reported as N/A and was changed on 06/11/201713:58 by [facility] Performed By: #### A BG ####Unless otherwise noted, all testing performed by [address] [phone]: [id number] Director: Shabbir Krishnan M.D. O2 Amount Please disregard, duplicate results Normal [facility] Comment on above: Result Comment: Test O2 Amount with result of Please disregard, duplicate results wasoriginally reported as 21 and was changed on 06/11/2017 13:58 by KPHALR Performed By: #### A BG ####Unless otherwise noted, all testing performed by [place] [address] [place], [place] [phone]: [id number] Director: Shabbir Krishnan M.D. O2 Amount 28 % Normal [facility] Comment on above: Performed By: #### A BG ####Unless otherwise noted, all testing performed by [address] [phone]: [id number] Director: Shabbir Krishnan M.D. O2 Device Nasal Cannula Normal [facility] Comment on above: Performed By: #### A BG ####Unless otherwise noted, all testing performed by [address] [phone]: [id number] Director: Shabbir Krishnan M.D. O2 Device Please disregard, duplicate results Normal [facility] Comment on above: Result Comment: Test O2 Device with result of Please disregard, duplicate results wasoriginally reported as Nasal BIPAP and was changed on 06/11/2017 13:58by KPHALR Performed By: #### A BG ####Unless otherwise noted, all testing performed by [address] [phone]: [id number] Director: Shabbir Krishnan M.D. O2CT 15.6 Vol % Low 18-22 [facility] Comment on above: Performed By: #### A BG ####Unless otherwise noted, all testing performed by [place] [phone]: [id number] Director: Shabbir Krishnan M.D. O2CT Please disregard, duplicate results Normal 18-22 [facility] Comment on above: Result Comment: Test O2CT with result of Please disregard, duplicate results wasoriginally reported as 15.6 and was changed on 06/11/2017 13:58 by KPHALR Performed By: #### A BG ####Unless otherwise noted, all testing performed by [address] [phone]: [id number] Director: Shabbir Krishnan M.D. Oxygen in arterial blood Please disregard, duplicate results Normal > 67.0 [facility] Comment on above: Result Comment: Test pO2 (temp conv.) with result of Please disregard, duplicate resultswas originally reported as 94.1 and was changed on 06/11/2017 13:58 byKPHALR Performed By: #### A BG ####Unless otherwise noted, all testing performed by [address] [phone]: [id number] Director: Shabbir Krishnan M.D. Result Comment: Test PO2 with result of Please disregard, duplicate results wasoriginally reported as 111.1 and was changed on 06/11/2017 13:58 byKPHALR Oxygen in arterial blood 111.1 mm Hg Normal > 67.0 [facility] Comment on above: Performed By: #### A BG ####Unless otherwise noted, all testing performed by [address] [phone]: [id number] Director: Shabbir Krishnan M.D. Oxygen in arterial blood 94.1 mm Hg Normal > 67 [facility] Comment on above: Performed By: #### A BG ####Unless otherwise noted, all testing performed by [address] [phone]: [id number] Director: Shabbir Krishnan M.D. p Oxygen Exchange % 3.97 mmHg/% Normal [facility] Comment on above: Performed By: #### A BG ####Unless otherwise noted, all testing performed by [address] [phone]: [id number] Director: Shabbir Krishnan M.D. p Oxygen Exchange % Please disregard, duplicate results Normal [facility] Comment on above: Result Comment: Test p Oxygen Exchange % with result of Please disregard, duplicateresults was originally reported as 3.97 and was changed on 06/11/201713:58 by [facility] Performed By: #### A BG ####Unless otherwise noted, all testing performed by [address] [phone]: [id number] Director: Shabbir Krishnan M.D. PEEP N/A Normal [facility] Comment on above: Performed By: #### A BG ####Unless otherwise noted, all testing performed by [address] [phone]: [id number] Director: Shabbir Krishnan M.D. PEEP Please disregard, duplicate results Normal [facility] Comment on above: Result Comment: Test PEEP with result of Please disregard, duplicate results wasoriginally reported as N/A and was changed on 06/11/2017 13:58 by KPHALR Performed By: #### A BG ####Unless otherwise noted, all testing performed by [address] [phone]: [id number] Director: Shabbir Krishnan M.D. pH of blood Please disregard, duplicate results Normal 7.350-7.450 [facility] Comment on above: Result Comment: Test pH with result of Please disregard, duplicate results wasoriginally reported as 7.373 and was changed on 06/11/2017 13:58 byKPHALR Performed By: #### A BG ####Unless otherwise noted, all testing performed by [address] [phone]: [id number] Director: Shabbir Krishnan M.D. Result Comment: Test pH (temp conv.) with result of Please disregard, duplicate resultswas originally reported as 7.417 and was changed on 06/11/2017 13:58 byKPHALR pH of blood 7.417 [pH] Normal 7.350-7.450 [facility] Comment on above: Performed By: #### A BG ####Unless otherwise noted, all testing performed by [address] [phone]: [id number] Director: Shabbir Krishnan M.D. pH of blood 7.373 [pH] Normal 7.350-7.450 [facility] Comment on above: Performed By: #### A BG ####Unless otherwise noted, all testing performed by [address] [phone]: [id number] Director: Shabbir Krishnan M.D. [facility] Comment on above: Performed By: #### A BG ####Unless otherwise noted, all testing performed by [address] [phone]: [id number] Director: Shabbir Krishnan M.D. PSV Please disregard, duplicate results Normal [facility] Comment on above: Result Comment: Test PSV with result of Please disregard, duplicate results wasoriginally reported as NA and was changed on 06/11/2017 13:58 by KPHALR Performed By: #### A BG ####Unless otherwise noted, all testing performed by [address] [phone]: [id number] Director: Shabbir Krishnan M.D. Respiratory rate Please disregard, duplicate results Normal [facility] Comment on above: Result Comment: Test Respiratory Rate (Total) with result of Please disregard, duplicateresults was originally reported as 12.0 and was changed on 06/11/201713:58 by KPHALR Performed By: #### A BG ####Unless otherwise noted, all testing performed by [address] [phone]: [id number] Director: Shabbir Krishnan M.D. Respiratory rate 16.0 /min Normal [facility] Comment on above: Performed By: #### A BG ####Unless otherwise noted, all testing performed by [address] [phone]: [id number] Director: Shabbir Krishnan M.D. Site ([facility]) Please disregard, duplicate results Normal [facility] Comment on above: Result Comment: Test Site (AB) with result of Please disregard, duplicate results wasoriginally reported as Left At[facility] and was changed on 06/11/2017 13:58by KPHALR Performed By: #### A BG ####Unless otherwise noted, all testing performed by [address] [phone]: [id number] Director: Shabbir Krishnan M.D. Site (ABG) Left Radial, [place] + Normal [place] Comment on above: Performed By: #### A BG ####Unless otherwise noted, all testing performed by [address] [phone]: [id number] Director: Shabbir Krishnan M.D. Source (ABG) Arterial Blood Normal [facility] Comment on above: Performed By: #### A BG ####Unless otherwise noted, all testing performed by [address] [phone]: [id number] Director: Shabbir Krishnan M.D. Source (ABG) Please disregard, duplicate results Normal [facility] Comment on above: Result Comment: Test Source (ABG) with result of Please disregard, duplicate results wasoriginally reported as Arterial Blood and was changed on 06/11/201713:58 by KPHALR Performed By: #### A BG ####Unless otherwise noted, all testing performed by [address] [phone]: [id number] Director: Shabbir Krishnan M.D. Spontaneous Rate N/A Normal [facility] Comment on above: Performed By: #### A BG ####Unless otherwise noted, all testing performed by [address], [place] [phone]: [id number] Director: Shabbir Krishnan M.D. Spontaneous Rate Please disregard, duplicate results [facility] Comment on above: Result Comment: Test Spontaneous Rate with result of Please disregard, duplicate resultswas originally reported as N/A and was changed on 06/11/2017 13:58 byHALR Performed By: #### A BG ####Unless otherwise noted, all testing performed by [address] [phone]: [id number] Director: Shabbir Krishnan M.D. Tidal Volume Please disregard, duplicate results [facility] Comment on above: Result Comment: Test Tidal Volume with result of Please disregard, duplicate results wasoriginally reported as N/A and was changed on 06/11/2017 13:58 by HALR Performed By: #### A BG ####Unless otherwise noted, all testing performed by [address] [phone]: [id number] Director: Shabbir Krishnan M.D. Tidal Volume N/A [facility] Comment on above: Performed By: #### A BG ####Unless otherwise noted, all testing performed by [address] [phone]: [id number] Director: Shabbir Krishnan M.D. Vent Mode N/A [facility] Comment on above: Performed By: #### A BG ####Unless otherwise noted, all testing performed by [address] [phone]: [id number] Director: Shabbir Krishnan M.D. Vent Mode Please disregard, duplicate results Normal [facility] Comment on above: Result Comment: Test Vent Mode with result of Please disregard, duplicate results wasoriginally reported as N/A and was changed on 06/11/2017 13:58 by KPHALR Performed By: #### A BG ####Unless otherwise noted, all testing performed by [address] [phone]: [id number] Director: Shabbir Krishnan M.D. Vent Rate N/A Normal [facility] Comment on above: Performed By: #### A BG ####Unless otherwise noted, all testing performed by [address] [phone]: [id number] Director: Shabbir Krishnan M.D. Vent Rate Please disregard, duplicate results Normal [facility] Comment on above: Result Comment: Test Vent Rate with result of Please disregard, duplicate results wasoriginally reported as N/A and was changed on 06/11/2017 13:58 by KPHALR Performed By: #### A BG ####Unless otherwise noted, all testing performed by [address] [phone]: [id number] Director: Shabbir Krishnan M.D. CBC with Diffon 06-10-2017 Basophils Auto #/vol (Bld) 0.0 K/mcL Normal 0-0.2 [facility] Comment on above: Performed By: #### C BCDIF ####Unless otherwise noted, all testing performed by [address] [phone]: [id number] Director: Shabbir Krishnan M.D. Basophils/100 WBC Auto (Bld) 0.3 % Normal [facility] Comment on above: Performed By: #### C BCDIF ####Unless otherwise noted, all testing performed by [address] [phone]: [id number] Director: Shabbir Krishnan M.D. Eosinophils 0.0 K/mcL Normal 0-0.5 [facility] Comment on above: Performed By: #### C BCDIF ####Unless otherwise noted, all testing performed by [address] [phone]: [id number] Director: Shabbir Krishnan M.D. Eosinophils/100 leukocytes 0.4 % Normal [facility] Comment on above: Performed By: #### C BCDIF ####Unless otherwise noted, all testing performed by [address] [phone]: [id number] Director: Shabbir Krishnan M.D. Erythrocyte distribution width Auto Ratio (RBC) 13.1 % Normal 10.0-14.4 [facility] Comment on above: Performed By: #### C BCDIF ####Unless otherwise noted, all testing performed by [address] [phone]: [id number] Director: Shabbir Krishnan M.D. Erythrocytes (RBC) 3.53 M/mcL Low 3.7-5.0 [facility] Comment on above: Performed By: #### C BCDIF ####Unless otherwise noted, all testing performed by [address] [phone]: [id number] Director: Shabbir Krishnan M.D. Hematocrit (HCT) 32.5 % Low 34.4-44.8 [facility] Comment on above: Performed By: #### C BCDIF ####Unless otherwise noted, all testing performed by [address] [phone]: [id number] Director: Shabbir Krishnan M.D. Hemoglobin mass conc (Bld) 11.5 g/dL Low 11.6-15.4 [facility] Comment on above: Performed By: #### C BCDIF ####Unless otherwise noted, all testing performed by [address] [phone]: [id number] Director: Shabbir Krishnan M.D. Lymphocytes 1.1 K/mcL Normal 1.0-3.7 [facility] Comment on above: Performed By: #### C BCDIF ####Unless otherwise noted, all testing performed by [address] [phone]: [id number] Director: Shabbir Krishnan M.D. Lymphocytes/100 leukocytes 12.1 % Normal [facility] Comment on above: Performed By: #### C BCDIF ####Unless otherwise noted, all testing performed by [address] [phone]: [id number] Director: Shabbir Krishnan M.D. MCH 32.7 pg Normal 27.9-33.9 [facility] Comment on above: Performed By: #### C BCDIF ####Unless otherwise noted, all testing performed by [address] [phone]: [id number] Director: Shabbir Krishnan M.D. [facility] (RBC) 35.5 g/dL High 33.1-35.1 [facility] Comment on above: Performed By: #### C BCDIF ####Unless otherwise noted, all testing performed by [address] [phone]: [id number] Director: Shabbir Krishnan M.D. MCV 92.0 fL Normal 82.6-98.9 [facility] Comment on above: Performed By: #### C BCDIF ####Unless otherwise noted, all testing performed by [address] [phone]: [id number] Director: Shabbir Krishnan M.D. Monocytes 0.3 K/mcL Normal 0.1-0.6 [facility] Comment on above: Performed By: #### C BCDIF ####Unless otherwise noted, all testing performed by [address] [phone]: [id number] Director: Shabbir Krishnan M.D. Monocytes/100 leukocytes 2.8 % Normal [facility] Comment on above: Performed By: #### C BCDIF ####Unless otherwise noted, all testing performed by [address] [phone]: [id number] Director: Shabbir Krishnan M.D. Neutrophils 7.8 K/mcL High 1.2-6.9 [facility] Comment on above: Performed By: #### C BCDIF ####Unless otherwise noted, all testing performed by [address] [phone]: [id number] Director: Shabbir Krishnan M.D. Platelet mean volume (PMV) 8.5 fL Normal 7.0-10.6 [facility] Comment on above: Performed By: #### C BCDIF ####Unless otherwise noted, all testing performed by [address] [phone]: [id number] Director: Shabbir Krishnan M.D. Platelets 261 K/mcL Normal 162-402 [facility] Comment on above: Performed By: #### C BCDIF ####Unless otherwise noted, all testing performed by [address] [phone]: [id number] Director: Shabbir Krishnan M.D. Segmented Neut % 84.4 % Normal [facility] Comment on above: Performed By: #### C BCDIF ####Unless otherwise noted, all testing performed by [address] [phone]: [id number] Director: Shabbir Krishnan M.D. WBC (Leukocytes) 9.2 K/mcL Normal 3.4-10.6 [facility] Comment on above: Performed By: #### C BCDIF ####Unless otherwise noted, all testing performed by [address], [place] [phone]: [id number] Director: Shabbir Krishnan M.D. 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 See concurrent surgical pathology report [id number]. PABLO/orlando Gross Description 1750 cc's of Dark Geronimo Brown Clear Fluid, Received Fresh, 2 Cyto Spins (1 DQ, 1 Pap), 1 Cellblock DLS (JSF/dls) Electronically Signed By Shabbir Krishnan MD , Pathologist (Case signed 06/12/2017) Normal [facility] SURGon 06-10-2017 SURG Name: GREGORIA SERNA Ovary, neoplastic, Left Clinical History Left Ovarian Mass Diagnosis Mucinous cystadenoma. PABLO/orlando Gross Description The specimen is received fresh is a left ovary mass measuring 15 x 14 x 8.5 cm. The outer lining has a reddish-pink and frye smooth walled appearance. Opening the specimen demonstrates this to be a multiloculated cystic mass. The inner cyst lining has a pinkish-frye and purplish- reddish smooth appearance. Papillations or mural nodules are not identified. Soft Work Cigar Machine Operator tissue is submitted for frozen section per Dr. Xavier's request. Additional sales representative jewelry sections of the cystic mass are submitted in cassettes 3-10. (JSF/lt) Frozen Section Diagnosis Mucinous neoplasm. Favor mucinous cystadenoma. A total of two frozen sections were done. The frozen section diagnosis is written and signed on the original requisition. JF;lat Electronically Signed By Shabbir Krishnan MD , Pathologist (Case signed 06/12/2017) Normal [facility] CBC with Diffon 06-09-2017 Basophils Auto #/vol (Bld) 0.0 K/mcL Normal 0-0.2 [facility] Comment on above: Performed By: #### C BCDIF ####Unless otherwise noted, all testing performed by [place] [phone]: [id number] Director: Shabbir Krishnan M.D. Basophils/100 WBC Auto (Bld) 0.7 % Normal [facility] Comment on above: Performed By: #### C BCDIF ####Unless otherwise noted, all testing performed by [address] [phone]: [id number] Director: Shabbir Krishnan M.D. Eosinophils 0.1 K/mcL Normal 0-0.5 [facility] Comment on above: Performed By: #### C BCDIF ####Unless otherwise noted, all testing performed by [address]8509CLIA: [id number] Director: Shabbir Krishnan M.D. Eosinophils/100 leukocytes 3.0 % Normal [facility] Comment on above: Performed By: #### C BCDIF ####Unless otherwise noted, all testing performed by [address] [phone]: [id number] Director: Shabbir Krishnan M.D. Erythrocyte distribution width Auto Ratio (RBC) 13.0 % Normal 10.0-14.4 [facility] Comment on above: Performed By: #### C BCDIF ####Unless otherwise noted, all testing performed by [address] [phone]: [id number] Director: Shabbir Krishnan M.D. Erythrocytes (RBC) 4.72 M/mcL Normal 3.7-5.0 [facility] Comment on above: Performed By: #### C BCDIF ####Unless otherwise noted, all testing performed by [address] [phone]: [id number] Director: Shabbir Krishnan M.D. Hematocrit (HCT) 44.3 % Normal 34.4-44.8 [facility] Comment on above: Performed By: #### C BCDIF ####Unless otherwise noted, all testing performed by [address] [phone]: [id number] Director: Shabbir Krishnan M.D. Hemoglobin mass conc (Bld) 15.2 g/dL Normal 11.6-15.4 [facility] Comment on above: Performed By: #### C BCDIF ####Unless otherwise noted, all testing performed by [address] [phone]: [id number] Director: Shabbir Krishnan M.D. Lymphocytes 2.1 K/mcL Normal 1.0-3.7 [facility] Comment on above: Performed By: #### C BCDIF ####Unless otherwise noted, all testing performed by [address] [phone]: [id number] Director: Shabbir Krishnan M.D. Lymphocytes/100 leukocytes 45.9 % Normal [facility] Comment on above: Performed By: #### C BCDIF ####Unless otherwise noted, all testing performed by [address] [phone]: [id number] Director: Shabbir Krishnan M.D. MCH 32.3 pg Normal 27.9-33.9 [facility] Comment on above: Performed By: #### C BCDIF ####Unless otherwise noted, all testing performed by [address] [phone]: [id number] Director: Shabbir Krishnan M.D. MCHC mass conc (RBC) 34.4 g/dL Normal 33.1-35.1 [facility] Comment on above: Performed By: #### C BCDIF ####Unless otherwise noted, all testing performed by [place] [phone]: [id number] Director: Shabbir Krishnan M.D. MCV 93.9 fL Normal 82.6-98.9 [facility] Comment on above: Performed By: #### C BCDIF ####Unless otherwise noted, all testing performed by [place] [phone]: [id number] Director: Shabbir Krishnan M.D. Monocytes 0.4 K/mcL Normal 0.1-0.6 [facility] Comment on above: Performed By: #### C BCDIF ####Unless otherwise noted, all testing performed by [address] [phone]: [id number] Director: Shabbir Krishnan M.D. Monocytes/100 leukocytes 8.1 % Normal [facility] Comment on above: Performed By: #### C BCDIF ####Unless otherwise noted, all testing performed by [address], [place] [phone]: [id number] Director: Shabbir Krishnan M.D. Neutrophils 1.9 K/mcL Normal 1.2-6.9 [facility] Comment on above: Performed By: #### C BCDIF ####Unless otherwise noted, all testing performed by [address] [phone]: [id number] Director: Shabbir Krishnan M.D. Platelet mean volume (PMV) 8.6 fL Normal 7.0-10.6 [facility] Comment on above: Performed By: #### C BCDIF ####Unless otherwise noted, all testing performed by [address] [phone]: [id number] Director: Shabbir Krishnan M.D. Platelets 249 K/mcL Normal 162-402 [facility] Comment on above: Performed By: #### C BCDIF ####Unless otherwise noted, all testing performed by [address] [phone]: [id number] Director: Shabbir Krishnan M.D. Segmented Neut % 42.3 % Normal [facility] Comment on above: Performed By: #### C BCDIF ####Unless otherwise noted, all testing performed by [address] [phone]: [id number] Director: Shabbir Krishnan M.D. WBC (Leukocytes) 4.6 K/mcL Normal 3.4-10.6 [facility] Comment on above: Performed By: #### C BCDIF ####Unless otherwise noted, all testing performed by [address] [phone]: [id number] Director: Shabbir Krishnan M.D. HCG, Qualitativeon 7 HCG, Qualitative Negative Normal [facility] Comment on above: Performed By: #### H CGQL ####Unless otherwise noted, all testing performed by [address] [phone]: [id number] Director: Shabbir Krishnan M.D. Vital Signs Date Time Vital Sign Value Performing Clinician Facility 11-22-2024 08:51-0500 Body height 172.7 cm Omid Aline DO Work Phone: [facility] 11-22-2024 08:51-0500 Body mass index (BMI) [Ratio] 28.1 kg/m2 Omid Aline DO Work Phone: [facility] 11-22-2024 08:51-0500 Body weight 83.83 kg Omid Aline DO Work Phone: [facility] 11-22-2024 08:51-0500 Diastolic blood pressure 80 mm[Hg] Omid Aline DO Work Phone: [facility] 11-22-2024 08:51-0500 Systolic blood pressure 128 mm[Hg] Omid Aline DO Work Phone: [facility] 11-18-2024 09:55-0500 Body weight 83.01 kg Madalyn GOULD Work Phone: [facility] 11-18-2024 09:55-0500 Diastolic blood pressure 72 mm[Hg] Madalyn GOULD Work Phone: [facility] 11-18-2024 09:55-0500 Systolic blood pressure 118 mm[Hg] Madalyn GOULD Work Phone: [facility] 07-20-2024 16:11-0400 Body height 172.72 cm [facility] 07-20-2024 16:11-0400 Body mass index (BMI) [Ratio] 27 kg/m2 [facility] 07-20-2024 16:11-0400 Body weight 80.73 kg [facility] 07-20-2024 16:11-0400 Diastolic blood pressure 76 mm[Hg] [facility] 07-20-2024 16:11-0400 Heart rate 80 /min [facility] 07-20-2024 16:11-0400 SaO2% (BldA) [Mass fraction] 97 % [facility] 07-20-2024 16:11-0400 Systolic blood pressure 113 mm[Hg] [facility] 06-10-2024 13:47-0400 Body height 172.72 cm [facility] 06-10-2024 13:47-0400 Body mass index (BMI) [Ratio] 27.5 kg/m2 [facility] 06-10-2024 13:47-0400 Body weight 82.1 kg [facility] 06-10-2024 13:47-0400 Diastolic blood pressure 80 mm[Hg] [facility] 06-10-2024 13:47-0400 Heart rate 77 /min [facility] 06-10-2024 13:47-0400 SaO2% (BldA) [Mass fraction] 98 % [facility] 06-10-2024 13:47-0400 Systolic blood pressure 121 mm[Hg] [facility] 03-04-2024 14:00-0400 Body height 173.99 cm MADHAVI CHRISTIAN Other [facility] Other 03-04-2024 14:00-0400 Diastolic blood pressure 79 mm[Hg] MADHAVI CHRISTIAN Other [facility] Other 04-04-2024 14:00-0400 Heart rate 85 /min MADHAVI MCOENHERR Other [facility] Other 03-04-2024 14:00-0400 Systolic blood pressure 114 mm[Hg] MADHAVI MCOENHERR Other [facility] Other 03-04-2024 08:00-0400 Diastolic blood pressure 84 mm[Hg] CHRISTOS JACKMAN Other [facility] Other 03-04-2024 08:00-0400 Heart rate 83 /min CHRISTOS JACKMAN Other [facility] Other 03-04-2024 08:00-0400 Systolic blood pressure 126 mm[Hg] CHRISTOS JACKMAN Other [facility] Other 05-05-2023 15:00-0400 Body height 173.99 cm RADHA DURANCAROLYN Other [facility] Other 05-05-2023 15:00-0400 Diastolic blood pressure 80 mm[Hg] RADHA KEN Other [facility] Other 05-05-2023 15:00-0400 Heart rate 83 /min RADHA KEN Other [facility] Other 05-05-2023 15:00-0400 Systolic blood pressure 146 mm[Hg] RADHA ROGERCAROLYN Other [facility] Other 02-03-2023 10:00-0500 Body height 173.99 cm RADHA KEN [facility] Other 02-03-2023 10:00-0500 Diastolic blood pressure 86 mm[Hg] RADHA KEN Other [facility] Other 02-03-2023 10:00-0500 Systolic blood pressure 135 mm[Hg] RADHA KEN Other [facility] Other 11-21-2022 13:45-0500 Body height 173.99 cm LINCOLN ANGEL Other [facility] Other 11-21-2022 13:45-0500 Diastolic blood pressure 88 mm[Hg] LINCOLN ANGEL Other [facility] Other 11-21-2022 13:45-0500 Heart rate 85 /min LINCOLN ANGEL Other [facility] Other 11-21-2022 13:45-0500 Systolic blood pressure 124 mm[Hg] LINCOLN ANGEL Other [facility] Other 11-01-2022 17:00-0500 Body height 173.99 cm CHRISTOS JACKMAN Other [facility] Other 11-01-2022 17:00-0500 Diastolic blood pressure 79 mm[Hg] CHRISTOS JACKMAN Other [facility] Other 11-01-2022 17:00-0500 Heart rate 77 /min CHRISTOS JACKMAN Other [facility] Other 11-01-2022 17:00-0500 Systolic blood pressure 115 mm[Hg] CHRISTOS JACKMAN Other [facility] Other 10-23-2022 09:00-0500 Body height 173.99 cm RADHA KEN Other [facility] Other 10-23-2022 09:00-0500 Diastolic blood pressure 79 mm[Hg] RADHA KEN Other [facility] Other 10-23-2022 09:00-0500 Heart rate 79 /min RADHA KEN Other [facility] Other 10-23-2022 09:00-0500 Systolic blood pressure 119 mm[Hg] RADHA KEN Other [facility] Other 09-18-2022 14:30-0400 Body height 173.99 cm TITI PINA Other [facility] Other 09-18-2022 14:30-0400 Diastolic blood pressure 82 mm[Hg] TITI PINA Other [facility] Other 09-18-2022 14:30-0400 Heart rate 78 /min TITI PINA Other [facility] Other 09-18-2022 14:30-0400 Systolic blood pressure 125 mm[Hg] TITI PINA Other [facility] Other 06-11-2022 12:00-0400 Body height 173.99 cm RADHA KEN Other [facility] Other 06-11-2022 12:00-0400 Diastolic blood pressure 78 mm[Hg] RADHA KEN Other [facility] Other 06-11-2022 12:00-0400 Systolic blood pressure 130 mm[Hg] RADHA KEN Other [facility] Other 04-25-2022 11:00-0400 Body height 173.99 cm RADHA KEN Other [facility] Other 04-25-2022 11:00-0400 Diastolic blood pressure 81 mm[Hg] RADHA KEN Other [facility] Other 04-25-2022 11:00-0400 Systolic blood pressure 132 mm[Hg] RADHA DURANDERALYSSA Other [facility] Other 10-12-2020 20:09-0500 Body Temperature 97.11 [degF] [facility] 10-12-2020 20:09-0500 BP Diastolic 84 mm[Hg] Lloyd [facility] 10-12-2020 20:09-0500 BP Systolic 127 mm[Hg] [facility] 10-12-2020 20:09-0500 Pulse (Heart Rate) 79 /min Lloyd [facility] 10-12-2020 20:09-0500 Respiratory Rate 16 /min Lloyd [facility] 10-12-2020 19:10-0500 BMI (Body Mass Index) 30.12 kg/m2 Lloyd [facility] 10-12-2020 19:10-0500 Body weight 91.17 kg Lloyd Game[facility] 10-12-2020 19:10-0500 Height 174 cm Lloyd Gamez [facility] 09-28-2020 11:32-0400 BP Diastolic 78 mm[Hg] Lloyd [facility] 09-28-2020 11:32-0400 BP Systolic 117 mm[Hg] Lloyd Game[facility] 09-28-2020 11:32-0400 Pulse (Heart Rate) 75 /min [facility] 09-28-2020 10:24-0400 BMI (Body Mass Index) 30.41 kg/m2 Lloydkoko [facility] 09-28-2020 10:24-0400 Body Temperature 98.29 [degF] Lloyd [facility] 09-28-2020 10:24-0400 Body weight 90.72 kg Lloyd Gamez [facility] 09-28-2020 10:24-0400 Height 172.7 cm [facility] 09-28-2020 10:24-0400 Respiratory Rate 18 /min Lloydkoko [facility] Encounters Encounter Date Encounter Type Care Provider Facility Start: 11-30-2024 End: 11-30-2024 ambulatory [facility]D MIRELES [facility] Other Start: 11-30-2024 Encounter by bernard RODRIGUEZ [facility] Patricia Start: 11-30-2024 End: 11-30-2024 External Result Encounter Omid Mireles DO Work Phone: [facility] External Department Unsolicited Start: 11-30-2024 End: 11-30-2024 External Result Encounter Omid Aline DO Work Phone: [facility] External Department Unsolicited Start: 11-22-2024 End: 11-22-2024 Bamboo flowsheet Omid Aline DO Work Phone: [facility] Start: 11-22-2024 End: 11-22-2024 Bamboo flowsheet Omid Aline DO Work Phone: [facility] Start: 11-22-2024 End: 11-22-2024 Office outpatient visit 15 minutes Omid Aline DO Work Phone: [facility] Comment on above: Pelvic pain in femal e; Generalized abdominal pain; Hormone disorder Start: 11-22-2024 End: 11-22-2024 ambulatory OMID ALINE Not Available Start: 11-21-2024 End: 11-21-2024 ambulatory ROSLYN RODRIGUEZ Other [facility] Other Start: 11-21-2024 Encounter by bernard RODRIGUEZ [facility] Start: 11-18-2024 End: 11-18-2024 Bamboo flowsheet Madalyn GOULD Work Phone: [facility] Start: 11-18-2024 End: 11-18-2024 Bamboo flowsheet Madalyn GOULD Work Phone: [facility] Start: 11-18-2024 End: 11-18-2024 Office outpatient visit 15 minutes Madalyn GOULD Work Phone: [facility] Comment on above: Pelvic pain in femal e; Generalized abdominal pain; Diarrhea, unspecified type Start: 11-18-2024 End: 11-18-2024 ambulatory MADALYN ORTEZ Not Available Start: 10-26-2024 End: 10-26-2024 ambulatory ROSLYN RODRIGUEZ Other [facility] Other Start: 10-26-2024 Telephone encounter ROSLYN [facility] Start: 10-23-2024 End: 10-23-2024 ambulatory ROSLYN RODRIGUEZ Other [facility] Other Start: 10-23-2024 Encounter by Avillion ROSLYN [facility]IGUEZ [facility] Start: 10-03-2024 End: 10-03-2024 ambulatory ROSLYNPATRICIA RODRIGUEZ Other [facility] Other Start: 10-03-2024 Telephone encounter ROSLYN [facility] Start: 09-24-2024 End: 09-24-2024 ambulatory ROSLYN RODRIGUEZ Other [facility] Other Start: 09-24-2024 Encounter by Avillion ROSLYN [facility] Start: 09-20-2024 End: 09-20-2024 Patient encounter procedure RICHY Mcgowan Abdirahmanbarakalyssa Work Phone: [facility] Work Phone: Start: 09-20-2024 End: 09-21-2024 ambulatory RICHY Mcgoverntpatricia Posey Abdirahmanbarakalyssa Work Phone: [facility] Work Phone: Start: 07-27-2024 End: 07-27-2024 ambulatory WILBER RACHEL Other [facility] Other Start: 07-27-2024 Telephone encounter WILBER RACHEL [facility] Start: 07-25-2024 End: 07-25-2024 ambulatory ROSLYN ABDIRAHMANBARAKALYSSA Other [facility] Other Start: 07-25-2024 Encounter by [employer]ocket[employer] rosa ortiz ROSLYN ESBARAKALYSSA [facility] Start: 07-24-2024 End: 07-24-2024 ambulatory ROSLYN ABDIRAHMANBARAKALYSSA Other [facility] Other Start: 07-24-2024 Encounter by compute [employer] ROSLYN SHEKHARALYSSA [facility] Start: 07-20-2024 End: 07-20-2024 ambulatory NON STAFF [facility] Work Phone: Start: 07-20-2024 End: 07-20-2024 Patient encounter procedure [facility] Work Phone: Start: 06-14-2024 End: 06-14-2024 ambulatory ROSLYN RODRIGUEZ Other [facility] Other Start: 06-14-2024 Encounter by Avillion ROSLYN JENNIFER [facility] Start: 06-10-2024 End: 06-10-2024 Patient encounter procedure [facility] [place] Work Phone: Start: 06-10-2024 End: 06-10-2024 ambulatory NON STAFF [facility] Work Phone: Start: 06-10-2024 End: 06-10-2024 ambulatory [facility] Work Phone: Start: 06-10-2024 End: 06-10-2024 Patient encounter procedure [facility] Work Phone: Start: 05-07-2024 End: 05-07-2024 ambulatory ROSLYN RODRIGUEZ Other [facility] Other Start: 05-07-2024 Encounter by Avillion ROSLYNPATRICIA RODRIGUEZ [facility] Start: 04-17-2024 End: 04-17-2024 ambulatory ROSLYN RODRIGUEZ Other [facility] Other Start: 04-17-2024 Encounter by compute r [employer] ROSLYN RODRIGUEZ [facility] Start: 04-09-2024 End: 04-09-2024 ambulatory ROSLYN RODRIGUEZ Other [facility] Other Start: 04-09-2024 Encounter by compute r [employer] ROSLYN RODRIGUEZ [address] Start: 04-08-2024 End: 04-08-2024 ambulatory ROSLYN RODRIGUEZ Other [facility] Other Start: 04-08-2024 Encounter by compute r [employer] ROSLYN RODRIGUEZ [address] Start: 04-05-2024 End: 04-05-2024 ambulatory ROSLYN RODRIGUEZ Other [facility] Other Start: 04-05-2024 Encounter by compute r [employer] ROSLYN RODRIGUEZ [address] Start: 03-23-2024 End: 03-23-2024 ambulatory ROSLYN RODRIGUEZ Other [facility] Other Start: 03-23-2024 Encounter by compute r [employer] ROSLYN RODRIGUEZ [address] Start: 03-14-2024 End: 03-14-2024 ambulatory ROSLYN RODRIGUEZ Other [facility] Other Start: 03-14-2024 Encounter by compute r [employer] ROSLYN RODRIGUEZ [address] Start: 03-05-2024 End: 03-05-2024 ambulatory ROSLYN ABDIRAHMANBARAKALYSSA Other [facility] Other Start: 03-05-2024 Encounter by bernard GARYBARAKALYSSA [address] Start: 03-04-2024 (DEN RECALL) Recall CHRISTOS SHAHOPER D ENT [facility] Start: 03-04-2024 End: 03-04-2024 ambulatory MADHAVI CHRISTIAN Other [facility] Other Start: 03-04-2024 Encounter for dental examination and cleaning with abnormal findings CHRISTOS JACKMAN [facility] Start: 12-31-2023 End: 12-31-2023 ambulatory CAROL WADSWORTH Other [facility] Other Start: 12-31-2023 Telephone encounter CAROL WADSWORTH [facility] [place] Start: 10-22-2023 End: 10-22-2023 ambulatory CAROL WADSWORTH Other [facility] Other Start: 10-22-2023 Telephone encounter CAROL WADSWORTH [facility] [place] Start: 10-03-2023 End: 10-03-2023 ambulatory CAROL WADSWORTH Other [facility] Other Start: 10-03-2023 Telephone encounter CAROL WADSWORTH [facility] [place] Start: 07-21-2023 End: 07-21-2023 ambulatory CAROL WADSWORTH Other [facility] Other Start: 07-21-2023 Telephone encounter CAROL WADSWORTH [facility] Start: 05-23-2023 End: 05-23-2023 ambulatory CAROL WADSWORTH [facility] Other Start: 05-23-2023 Telephone encounter CAROL WADSWORTH [facility] [address] Start: 05-05-2023 (DEN RECALL) Recall RADHA KEN [facility] Start: 05-05-2023 End: 05-05-2023 ambulatory RADHA KEN Other [facility] Other Start: 02-03-2023 (EXTRACT) Extraction RADHA KEN [facility] Start: 02-03-2023 End: 02-03-2023 ambulatory RADHA KEN Other [facility] Other Start: 01-24-2023 End: 01-24-2023 ambulatory CAROL WADSWORTH Other [facility] Other Start: 01-24-2023 Encounter by bernard ortiz CAROL WADSWORTH 4 [facility] [address] Start: 12-23-2022 End: 12-23-2022 ambulatory RADHA KEN Other [facility] Other Start: 12-23-2022 Telephone encounter RADHA KEN [facility] Start: 12-16-2022 End: 12-16-2022 ambulatory LINCOLN ANGEL Other [facility] Other Start: 12-16-2022 Telephone encounter LINCOLN ANGEL [facility] Start: 11-21-2022 End: 11-21-2022 ambulatory LINCOLN ANGEL Other [facility] Other Start: 11-07-2022 End: 11-07-2022 ambulatory CAROL WADSWORTH Other [facility] Other Start: 11-07-2022 Encounter by bernard WADSWORTH [address] Start: 11-01-2022 (DEN RECALL) Recall CHRISTOS JACKMAN D ENT [facility] Start: 11-01-2022 End: 11-01-2022 ambulatory CHRISTOS JACKMAN Other [facility] Other Start: 11-01-2022 Encounter for dental examination and cleaning with abnormal findings CHRISTOS JACKMAN [facility] Start: 10-25-2022 End: 10-25-2022 ambulatory RADHA KEN Other [facility] Other Start: 10-25-2022 Telephone encounter RADHA KEN [facility] Start: 10-23-2022 (DEN PROC) Dental Procedure RADHA KEN [facility] Start: 10-23-2022 End: 10-23-2022 ambulatory RADHA KEN Other [facility] Other Start: 10-10-2022 End: 10-10-2022 ambulatory RADHA KEN Other [facility] Other Start: 10-10-2022 Telephone encounter RADHA KEN [facility] Start: 09-18-2022 (DEN PROB) Problem Focused TITI PINA [facility] Start: 09-18-2022 End: 09-18-2022 ambulatory TITI PINA Other [facility] Other Start: 07-22-2022 End: 07-23-[address] NONE LISTED REQUEST Facility: Start: 06-12-2022 End: 06-12-2022 ambulatory CAROLHENRIK WADSWORTH Other [facility] Other Start: 06-12-2022 Telephone encounter CAROL Telles [facility] Start: 06-11-2022 (RESTOR) Restorative RADHA KEN [facility] Start: 06-11-2022 End: 06-11-2022 ambulatory WILBER WILSON Other [facility] Other Start: 06-11-2022 Encounter by [employer] r link WILBER RACHEL [facility] Start: 05-31-2022 End: 05-31-2022 ambulatory CAROL WADSWORTH Other [facility] Other Start: 05-31-2022 Encounter by [employer]ocket[employer] r link CAROL WADSWORTH [address] Start: 04-25-2022 End: 04-25-2022 ambulatory RADHA KEN Other [facility] Other Start: 04-25-2022 Encounter for dental examination and cleaning with abnormal findings RADHA KEN [facility] Start: 04-25-2022 FQ visit new patient RADHA LACY [facility] Start: 03-22-2022 End: 03-22-2022 ambulatory CAROL ERMELINDA Other [facility] Other Start: 03-22-2022 Telephone encounter CAROL WADSWORTH [address] Start: 10-12-2020 End: 10-12-2020 Evaluation and management of inpatient Lloyd Gamez Work Phone: [facility] Delivery Comment on above: IUP @ 35/3; PELVIC P RESSURE Start: 09-28-2020 End: 09-28-2020 Subsequent hospital visit by physician Lloyd Gamez Work Phone: [facility] Delivery Comment on above: Supervision of high- risk of elderly multigravida Start: 07-09-2019 End: 07-13-2019 Patient encounter procedure FELICIA MOURA [facility] Start: 02-19-2018 Ambulatory Yajaira Kishan Pateli ty:[place] Start: 07-04-2017 Ambulatory Jadiel Xavier Facility :[place] Start: 07-04-2017 End: 07-04-2017 Ambulatory Jadiel Xavier Work Phone: [facility] Start: 06-10-2017 End: 06-14-2017 Evaluation and management of inpatient Jadiel Moyer Baker Facility:[place] Start: 06-09-2017 Ambulatory Jadiel Moyer Baker Facility :[place] Procedures Date Procedure Procedure Detail Performing Clinician Start: 11-30-2024 Glucose [Mass/volume ] in Serum or Plasma Omid Mireles DO Work Phone: Start: 11-18-2024 Urnls dip stick/tabl et rgnt non-auto w/o micrscp Madalyn GOULD Work Phone: Start: 03-04-2024 [facility] xm&pradip l comprhnsv estab pt 1/> MADHAVI CHRISTIAN Start: 11-21-2022 [facility] xm&pradip l comprhnsv estab pt 1/> LINCOLN ANGEL Start: 10-12-2020 Urnls dip stick/tabl et reagent auto microscopy Lloyd Gamez Work Phone: Start: 09-28-2020 Creatinine other source Lloyd Gamez Work Phone: Start: 09-28-2020 Urnls dip stick/tabl et reagent auto microscopy Lloyd Gamez Work Phone: Start: 09-28-2020 CBC WITH DIFFERENTIAL E natasha Gamez Work Phone: Start: 09-28-2020 COMPLETE BLOOD COUNT WITH DIFFERENTIAL Lloyd TaverasJulián Work Phone: Start: 09-28-2020 Comprehensive metabo lic panel Lloyd Gamez Work Phone: Start: 03-18-2019 Microscopic observat ion [Identifier] in Cervix by Cyto stain Madalyn GOULD Work Phone: Dental consultation and report TITI PINA Other Plan of Treatment Date Care Activity Detail Author Start: 09-18-2030 TETANUS VACCINE 11+ TETANUS VACCINE 11+ [facility] Start: 12-23-2024 End: 12-23-2024 Patient encounter procedure 12/23/2024 10:10 AM EST Consult [facility] [address] [place] [id number] Omid Mireles DO [address] [place] [address] [facility] Start: 11-22-2024 End: 11-22-2025 C-peptide C-peptide Lab Routine Pelvic pain in female Generalized abdominal pain Hormone disorder Expected: 11/22/2024 (Approximate), Expires: 11/22/2025 [facility] Comment on above: Expected: 11/22/2024 (Approximate), Expires: 11/22/2025 Start: 11-22-2024 End: 11-22-2025 Cortisol free Cortisol, free Lab Routine Pelvic pain in female Generalized abdominal pain Hormone disorder Expected: 11/22/2024 (Approximate), Expires: 11/22/2025 [facility] Comment on above: Expected: 11/22/2024 (Approximate), Expires: 11/22/2025 Start: 11-22-2024 End: 11-22-2025 Glucose [Mass/volume] in Serum or Plasma Glucose, random Lab Routine Pelvic pain in female Generalized abdominal pain Hormone disorder Expected: 11/22/2024 (Approximate), Expires: 11/22/2025 [facility] Comment on above: Expected: 11/22/2024 (Approximate), Expires: 11/22/2025 Start: 11-22-2024 End: 11-22-2025 Insulin, total Insulin, total Lab Routine Pelvic pain in female Generalized abdominal pain Hormone disorder Expected: 11/22/2024 (Approximate), Expires: 11/22/2025 [facility] Comment on above: Expected: 11/22/2024 (Approximate), Expires: 11/22/2025 Start: 11-22-2024 End: 11-22-2025 Serotonin serum Serotonin serum Lab Routine Pelvic pain in female Generalized abdominal pain Hormone disorder Expected: 11/22/2024 (Approximate), Expires: 11/22/2025 [facility] Comment on above: Expected: 11/22/2024 (Approximate), Expires: 11/22/2025 Start: 11-22-2024 End: 11-22-2025 Thyroglobulin Thyroglobulin Lab Routine Pelvic pain in female Generalized abdominal pain Hormone disorder Expected: 11/22/2024 (Approximate), Expires: 11/22/2025 [facility] Comment on above: Expected: 11/22/2024 (Approximate), Expires: 11/22/2025 Start: 11-22-2024 End: 11-22-2025 Thyroglobulin Antibody Thyroglobulin Antibody Lab Routine Pelvic pain in female Generalized abdominal pain Hormone disorder Expected: 11/22/2024 (Approximate), Expires: 11/22/2025 [facility] Comment on above: Expected: 11/22/2024 (Approximate), Expires: 11/22/2025 Start: 11-22-2024 End: 11-22-2025 Thyrotropin [Units/volume] in Serum or Plasma [facility] Comment on above: Ordered: 11/22/2024 Expected: 11/22/2024 (Approximate), Expires: 11/22/2025 Start: 11-22-2024 End: 11-22-2024 Patient encounter procedure [facility] Comment on above: Pelvic pain in femal e; Generalized abdominal pain Start: 11-18-2024 End: 11-18-2025 SURESWAB(R) ADVANCED VAGINITIS PLUS, TMA SURESWAB(R) ADVANCED VAGINITIS PLUS, TMA Pathology and Cytology Routine Pelvic pain in female Expected: 11/18/2024 (Approximate), Expires: 11/18/2025 [facility] Work Phone: Comment on above: Expected: 11/18/2024 (Approximate), Expires: 11/18/2025 Start: 11-18-2024 End: 11-18-2024 Patient encounter procedure 11/18/2024 9:40 AM EST Office Visit [facility] [address] [place] [phone] Madalyn Ortez PA [address] [place] [address] Arrived [facility] Comment on above: Arrived Start: 08-01-2024 Influenza vaccination Influenza Vacc ine (#1) [facility] Start: 2024 Screening for malign ant neoplasm of breast Mammogram [facility] Start: 03-18-2024 Screening for malign ant neoplasm of cervix [facility] Start: 03-18-2022 Screening for malign ant neoplasm of cervix Pap Smear [facility] Start: 11-08-2020 End: 11-08-2020 Hospital Encounter [facility] Delivery Comment on above: Delivery with histor y of SECTION Start: 11-07-2020 End: 11-07-2020 OB Visit 11/07/2020 OB Visit clinical registered nurse Nia Galarza MD [address] [place] [address] [phone] [facility] Start: 11-01-2020 End: 11-01-2020 OB Visit 11/01/2020 OB Visit clinical registered nurse Tarah Scott MD [address] [place] [address] [phone] [facility] Start: 10-30-2020 End: 10-30-2020 OB Visit 10/30/2020 OB Visit clinical registered nurse Bret Ko DO [address] [place] [address] [phone] [facility] Start: 10-23-2020 End: 10-23-2020 OB Visit [facility] Start: 10-22-2020 End: 10-22-2020 Appointment 10/22/2020 Appointment Radiology [facility] - MRI Start: 10-16-2020 End: 10-16-2020 OB Visit [facility] Start: 10-03-2020 End: 10-03-2020 OB Visit 10/03/2020 OB Visit clinical registered nurse Tarah Scott MD [address] [place] [address] [phone] [facility] Start: 10-04-2019 Cytopathology proced ure, preparation of smear, genital source PAP SMEAR [facility] Work Phone: Start: 08-01-2017 SEQUENTIAL INFLUENZA VACCINE (#1) SEQUENTIAL INFLUENZA VACCINE (#1) [facility] Work Phone: Start: 2005 Microscopic observat ion Cyto stain Nom (Cvx) PAP SMEAR [facility] Start: 1999 HIV SCREENING HIV SCREENING [facility] Start: 1984 TETANUS EVERY 10 YR TETANUS EVERY 10 YR [facility] Work Phone: CULTURE, URINE CULTURE, URINE L ab Routine 10/12/2020 7:44 PM EST [facility] DHEA-sulfate DHEA-sulfate Lab Routine Pelvic pain in female Generalized abdominal pain Hormone disorder Ordered: 11/22/2024 [facility] Comment on above: Ordered: 11/22/2024 Estradiol Estradiol Lab Ro utine Pelvic pain in female Generalized abdominal pain Hormone disorder Ordered: 11/22/2024 [facility] [employer] Work Phone: Comment on above: Ordered: 11/22/2024 Estrone Estrone Lab Rout ine Pelvic pain in female Generalized abdominal pain Hormone disorder Ordered: 11/22/2024 [facility] Comment on above: Ordered: 11/22/2024 Ferritin [Mass/volum e] in Serum or Plasma Ferritin Lab Routine Pelvic pain in female Generalized abdominal pain Hormone disorder Ordered: 11/22/2024 [facility] Comment on above: Ordered: 11/22/2024 Hemoglobin A1c/Hemoglobin.total in Blood Hemoglobin A1c Lab Routine Pelvic pain in female Generalized abdominal pain Hormone disorder Ordered: 11/22/2024 [facility] Comment on above: Ordered: 11/22/2024 Progesterone Progesterone Lab Routine Pelvic pain in female Generalized abdominal pain Hormone disorder Ordered: 11/22/2024 [facility] Comment on above: Ordered: 11/22/2024 Sex hormone binding globulin Sex hormone binding globulin Lab Routine Pelvic pain in female Generalized abdominal pain Hormone disorder Ordered: 11/22/2024 [facility] Comment on above: Ordered: 11/22/2024 T3, reverse T3, reverse Lab Routine Pelvic pain in female Generalized abdominal pain Hormone disorder Ordered: 11/22/2024 [facility] Comment on above: Ordered: 11/22/2024 TESTOSTERONE, FREE TESTOSTERONE, FREE Lab Routine Pelvic pain in female Generalized abdominal pain Hormone disorder Ordered: 11/22/2024 [facility] Comment on above: Ordered: 11/22/2024 Testosterone, free, total Testos terone, free, total Lab Routine Pelvic pain in female Generalized abdominal pain Hormone disorder Ordered: 11/22/2024 [facility] Comment on above: Ordered: 11/22/2024 Thyroid peroxidase antibody Thyroid peroxidase antibody Lab Routine Pelvic pain in female Generalized abdominal pain Hormone disorder Ordered: 11/22/2024 [facility] Comment on above: Ordered: 11/22/2024 Thyroxine (T4) free [Mass/volume] in Serum or Plasma T4, free Lab Routine Pelvic pain in female Generalized abdominal pain Hormone disorder Ordered: 11/22/2024 [facility] Comment on above: Ordered: 11/22/2024 Triiodothyronine (T3 ) Free [Mass/volume] in Serum or Plasma T3, free Lab Routine Pelvic pain in female Generalized abdominal pain Hormone disorder Ordered: 11/22/2024 [facility] Comment on above: Ordered: 11/22/2024 Vitamin D 1,25 dihydroxy Vitamin D 1,25 dihydroxy Lab Routine Pelvic pain in female Generalized abdominal pain Hormone disorder Ordered: 11/22/2024 [facility] Comment on above: Ordered: 11/22/2024 [facility] Immunizations Immunization Date Immunization Notes Care Provider Fa cility 11-27-2021 Historical Moderna COVID-19 ROSLYN RODRIGUEZ Other [facility] Other 02-16-2021 Historical Modern a COVID-19 CAROL WADSWORTH Other [facility] Other 01-19-2021 FH Historical Modern a COVID-19 CAROL WADSWORTH Other [facility] Other 09-18-2020 tetanus toxoid, redu remington diphtheria toxoid, and acellular pertussis vaccine, adsorbed; Translations: [Historical Tdap] [facility] 09-04-2020 influenza, injectabl e, quadrivalent, preservative free CAROL WADSWORTH Other [facility] Other 09-04-2020 Flu Vaccine, Seasona l, Injectable, Patient Reported [facility] 10-21-2014 influenza, seasonal, injectable ROSLYN ABDIRAHMANMICHAEL Other [facility] Other 10-21-2014 influenza virus vaccine, unspecified formulation Madalyn Ortez [place] Work Phone: [facility] 10-19-2013 influenza, seasonal, injectable ROSLYNPATRICIA RODRIGUEZ Other [facility] Other Payers Date Payer Category Payer Self-pay 2024 Private Health Insurance [employer] [id number] 2024 Unknown [id number] 2016 Unknown [id number] 1984 Unknown [id number] 1984 Unknown [id number] 1984 Unknown [id number] 1259 1984 Unknown [id number] 1259 1984 Unknown [id number] 1959 Private Health Insurance [id number] [facility] [id number] Private Health Insurance [employer] [place] [employer] [id number] Effective for all dates [address] [place] [address] [id number] Unknown [id number] Unknown [id number] Unknown [id number] Unknown [id number] [id number] Unknown [id number] Unknown [id number] 531 Social History Date Type Detail Facility Start: 12-24-2016 End: 11-08-2024 Tobacco smoking status NHIS Never smoker [facility] Work Phone: Start: 1985 Sex Assigned At Not on file [facility] Work Phone: Start: 09-28-2020 End: 10-12-2020 Tobacco use and exposure Never used [facility] Start: 09-28-2020 End: 10-12-2020 Alcohol intake Ex-drinker (finding) [facility] Start: 09-28-2020 History SDOH Social Connections Phone 5 [facility] Start: 09-28-2020 History SDOH Social Connections Get Together 3 [facility] Start: 09-28-2020 History SDOH Social Connections Druze 1 [facility] Start: 09-28-2020 History SDOH Social Connections Membership 2 [facility] Start: 09-28-2020 History SDOH Physica l Activity DPW 0 [facility] Start: 05-29-2020 Alcohol Comment not since pos preg [facility] Start: 02-21-2020 [facility] Exposure to SARS-CoV -2 (event) Not sure [facility] Sex Assigned At [facility] Other Start: 1985 Sex Assigned At Female F [facility] Sex Assigned At Female [facility] Other Tobacco smoking stat [facility] Tobacco smoking consumption unknown [facility] Clinical Notes 12-01-2016 to 11-22-2024 Omid Mireles DO - 11/22/2024 8:50 AM LUIS FERNANDO [place] - 11/18/2024 9:40 AM EST Note Date & Type Note Facility 11-22-2024 History of Presen t illness Narrative Reason for Appointment: Patient ID: Gregoria Serna is a 39 y.o. female who presents for pelvic pain Patient presents today for Acute Visit. Current Medications: has a current medication list which includes the following prescription(s): amphetamine-dextroamphetamine xr, fluoxetine, and metformin xr. Medical History: Active Ambulatory Problems Diagnosis Date Noted Pelvic pain in female 11/22/2024 Generalized abdominal pain 11/22/2024 Resolved Ambulatory Problems Diagnosis Date Noted No Resolved Ambulatory Problems No Additional Past Medical History No family history on file. Social History Tobacco Use Smoking status: Not on file Smokeless tobacco: Not on file Substance Use Topics Alcohol use: Not on file Drug use: Not on file History reviewed. No pertinent surgical history. Allergies Allergen Reactions Lactose Review of Systems: Review of Systems All other systems reviewed and are negative. Objective Physical Exam Constitutional: Appearance: Normal appearance. She is well-developed. Cardiovascular: Rate and Rhythm: Normal rate and regular rhythm. Pulmonary: Effort: Pulmonary effort is normal. Breath sounds: Normal breath sounds. Abdominal: General: Bowel sounds are normal. There is no distension. Palpations: Abdomen is soft. Tenderness: There is no abdominal tenderness. There is no guarding or rebound. Musculoskeletal: General: No swelling. Normal range of motion. Right lower leg: No edema. Left lower leg: No edema. Neurological: Mental Status: She is alert and oriented to person, place, and time. Skin: General: Skin is warm and dry. Psychiatric: Mood and Affect: Mood normal. Behavior: Behavior normal. Vitals and nursing note reviewed. Exam conducted with a maintenance instructor present. Vitals: Estimated body mass index is 28.1 kg/m as calculated from the following: Height as of this encounter: 5' 8 . Weight as of this encounter: 184 lb 12.8 oz. BP: 128/80 Patient's last menstrual period was 10/27/2024 (exact date). Assessment/Plan Encounter Diagnosis: ICD-10-CM 1. Pelvic pain in female R10.2 Estradiol Estrone Cortisol, free DHEA-sulfate Sex hormone binding globulin Insulin, total Serotonin serum TSH T4, free T3, reverse Progesterone Vitamin D 1,25 dihydroxy Ferritin T3, free Thyroglobulin Thyroglobulin Antibody Thyroid peroxidase antibody T4 TESTOSTERONE, FREE Testosterone, free, total Hemoglobin A1c Glucose, random C-peptide metFORMIN XR (Glucophage-XR) 500 MG 24 hr tablet Cortisol, free Insulin, total Serotonin serum Thyroglobulin Thyroglobulin Antibody T4 Glucose, random C-peptide 2. Generalized abdominal pain R10.84 Estradiol Estrone Cortisol, free DHEA-sulfate Sex hormone binding globulin Insulin, total Serotonin serum TSH T4, free T3, reverse Progesterone Vitamin D 1,25 dihydroxy Ferritin T3, free Thyroglobulin Thyroglobulin Antibody Thyroid peroxidase antibody T4 TESTOSTERONE, FREE Testosterone, free, total Hemoglobin A1c Glucose, random C-peptide metFORMIN XR (Glucophage-XR) 500 MG 24 hr tablet Cortisol, free Insulin, total Serotonin serum Thyroglobulin Thyroglobulin Antibody T4 Glucose, random C-peptide 3. Hormone disorder E34.9 Estradiol Estrone Cortisol, free DHEA-sulfate Sex hormone binding globulin Insulin, total Serotonin serum TSH T4, free T3, reverse Progesterone Vitamin D 1,25 dihydroxy Ferritin T3, free Thyroglobulin Thyroglobulin Antibody Thyroid peroxidase antibody T4 TESTOSTERONE, FREE Testosterone, free, total Hemoglobin A1c Glucose, random C-peptide Cortisol, free Insulin, total Serotonin serum Thyroglobulin Thyroglobulin Antibody T4 Glucose, random C-peptide Obtain labs, will start pt on glucophage, pt desires removal of tube and clip, pt considering further surgical mgmt, but very reasonable to start with removal of tube and clip for cramping, obtain labs dt hormonal symptoms, Documented by Omid Mireles DO on behalf of: Omid Mireles DO documented in this encounter [facility] 11-18-2024 History of Presen t illness Narrative Reason for Appointment: Patient ID: Gregoria Serna is a 39 y.o. female who presents for Pelvic Pain (Pt stated she has had this pelvic pain since 11/08/2024 and has not gone away. ) Patient presents today for Acute Visit. MEDICATIONS Current Outpatient Medications Medication Instructions Adderall XR 30 MG 24 hr capsule Take 1 capsule by mouth once a day IN THE MORNING. amphetamine-dextroamphetamine XR (Adderall XR) 20 MG 24 hr capsule Take 1 capsule BY MOUTH once daily IN THE MORNING buPROPion (WELLBUTRIN) 75 mg, Daily FLUoxetine (PROZAC) 10 mg, Daily sertraline (Zoloft) 25 MG tablet TAKE 3 TABLETS BY MOUTH once a day ALLERGIES Allergies Allergen Reactions Lactose PROBLEMS Active Ambulatory Problems Diagnosis Date Noted No Active Ambulatory Problems Resolved Ambulatory Problems Diagnosis Date Noted No Resolved Ambulatory Problems No Additional Past Medical History HISTORY PAST MEDICAL HISTORY SOCIAL HISTORY No past medical history on file. Social History Tobacco Use Smoking status: Not on file Smokeless tobacco: Not on file Substance Use Topics Alcohol use: Not on file Drug use: Not on file FAMILY HISTORY No family history on file. SURGICAL HISTORY History reviewed. No pertinent surgical history. REVIEW OF SYSTEMS Review of Systems: Review of Systems Constitutional: Negative. HENT: Negative. Eyes: Negative. Respiratory: Negative. Cardiovascular: Negative. Gastrointestinal: Positive for abdominal pain and diarrhea. Genitourinary: Negative. Musculoskeletal: Negative. Skin: Negative. Neurological: Negative. All other systems reviewed and are negative. Hematological: Negative. Endocrine: Negative. Allergic/Immunologic: Negative. OBJECTIVE Objective: Physical Exam Constitutional: Appearance: Normal appearance. She is normal weight. HENT: Head: Normocephalic. Cardiovascular: Rate and Rhythm: Normal rate. Pulses: Normal pulses. Pulmonary: Effort: Pulmonary effort is normal. Breath sounds: Normal breath sounds. Abdominal: Palpations: Abdomen is soft. There is no mass. Tenderness: There is abdominal tenderness. There is guarding. Musculoskeletal: General: Normal range of motion. Neurological: General: No focal deficit present. Mental Status: She is alert and oriented to person, place, and time. Skin: General: Skin is warm. Psychiatric: Mood and Affect: Mood normal. Behavior: Behavior normal. Thought Content: Thought content normal. Judgment: Judgment normal. Vitals and nursing note reviewed. Vitals: There is no height or weight on file to calculate BMI. BP: 118/72 Patient's last menstrual period was 10/27/2024 (exact date). ASSESSMENT & PLAN ICD-10-CM 1. Pelvic pain in female R10.2 SURESWAB(R) ADVANCED VAGINITIS PLUS, TMA Neisseria gonorrhea DNA probe, direct CHLAMYDIA TRACHOMATIS (GENITO/STI) SURESWAB(R) ADVANCED VAGINITIS PLUS, TMA POCT urinalysis dipstick manually resulted CANCELED: POCT urinalysis dipstick manually resulted CANCELED: POCT , urine manually resulted CANCELED: US PELVIS-TRANSVAG IF INDICATED 2. Generalized abdominal pain R10.84 CT abdomen pelvis w IV contrast CBC and differential CBC and differential 3. Diarrhea, unspecified type R19.7 CT abdomen pelvis w IV contrast CBC and differential CBC and differential Patient presents for worsening chronic lower abdominal pain and cramping. Pt states feels as if her clip is twisting and she has increased pain during cycles and occasionally mid cycle. Pt states she is unable to lay on her side and has increased pressure. CT scan of abdomin was offered, ua today negative. Recent US report shows 2 cm cyst which is not believed to be causing her pain. Patient wishes to proceed with salpingectomy and removal of clip and tube to help alleviate her pain and also start on lo lo which was given today as a sample. Pt encouraged to go to er or follow up in office if pain worsens over the next several days or she spikes a fever. She exhibited generalized abdominal tenderness today with palpation, we discussed diverticulitis vs losis as well. Documented by LUIS FERNANDO Mahajan on behalf of: LUIS FERNANDO Mahajan documented in this encounter [facility] 07-24-2024 Evaluation note Encounter Date Diagnosis Assessment Notes Jul, Post-traumatic stress disorder, unspecified (ICD-10 - F43.10) [facility] Other 05-18-2024 Evaluation note* Encounter Date Diagnosis Assessment Notes Treatment Notes Treatment Clinical Notes March, Attention and concentration deficit (ICD-10 - R41.840) [facility] Other 04-04-2024 Evaluation note* Encounter Date Diagnosis Assessment Notes Treatment Notes Treatment Clinical Notes Mar, Chronic gingivitis (ICD-10 - K05.10) Mar, Encounter for dental examination and cleaning with abnormal findings (ICD-10 - Z01.21) [facility] Other 11-03-2023 Evaluation note* Encounter Date Diagnosis Assessment Notes Treatment Notes Treatment Clinical Notes Oct, Depression with anxiety (ICD-10 - F41.8) [facility] Other 08-21-2023 Evaluation note* Encounter Date Diagnosis Assessment Notes Treatment Notes Treatment Clinical Notes Jul, Attention and concentration deficit (ICD-10 - R41.840) [facility] Other 06-23-2023 Evaluation note* Encounter Date Diagnosis Assessment Notes Treatment Notes Treatment Clinical Notes May, Attention and concentration deficit (ICD-10 - R41.840) May, Depression with anxiety (ICD-10 - F41.8) [facility] Other 06-05-2023 Evaluation note* Encounter Date Diagnosis Assessment Notes Treatment Notes Treatment Clinical Notes May, Periodontal disease, unspecified (ICD-10 - K05.6) [facility] Other 03-06-2023 Evaluation note* Encounter Date Diagnosis Assessment Notes Treatment Notes Treatment Clinical Notes Jan, Disturbances in tooth eruption (ICD-10 - K00.6) [facility] Other 02-24-2023 Evaluation note* Encounter Date Diagnosis Assessment Notes Treatment Notes Treatment Clinical Notes Jan, Attention and concentration deficit (ICD-10 - R41.840) [facility] Other 01-16-2023 Evaluation note* Encounter Date Diagnosis Assessment Notes Treatment Notes Treatment Clinical Notes Dec, Attention and concentration deficit (ICD-10 - R41.840) [facility] Other 12-22-2022 Evaluation note* Encounter Date Diagnosis Assessment Notes Treatment Notes Treatment Clinical Notes Oct, Myopia, bilateral (ICD-10 - H52.13) small change in rx. optional update in back up glasses. disp trials daily disposable CLs and new monthly CL. pt to report back with preferred lens. mtr 1 yr [facility] Other 12-02-2022 Evaluation note* Encounter Date Diagnosis Assessment Notes Treatment Notes Treatment Clinical Notes Oct, Chronic gingivitis (ICD-10 - K05.10) Oct, Encounter for dental examination and cleaning with abnormal findings (ICD-10 - Z01.21) [facility] Other 11-23-2022 Evaluation note* Encounter Date Diagnosis Assessment Notes Treatment Notes Treatment Clinical Notes Oct, Dental caries on smooth surface penetrating into pulp (ICD-10 - K02.63) [facility] Other 10-19-2022 Evaluation note* Encounter Date Diagnosis Assessment Notes Treatment Notes Treatment Clinical Notes Aug, Encounter for screening for dental disorder (ICD-10 - Z13.84) [facility] Other 07-12-2022 Evaluation note* Encounter Date Diagnosis Assessment Notes Treatment Notes Treatment Clinical Notes May, Dental caries (ICD-10 - K02.9) [facility] Other 07-01-2022 Evaluation note* Encounter Date Diagnosis Assessment Notes Treatment Notes Treatment Clinical Notes May, Impaired concentration (ICD-10 - R41.840) [facility] Other 05-26-2022 Evaluation note* Encounter Date Diagnosis Assessment Notes Treatment Notes Treatment Clinical Notes March, Dental caries (ICD-10 - K02.9) March, Encounter for dental examination and cleaning with abnormal findings (ICD-10 - Z01.21) March, Chronic gingivitis (ICD-10 - K05.10) [facility] Other 04-22-2022 Evaluation note* Encounter Date Diagnosis Assessment Notes Treatment Notes Treatment Clinical Notes Mar, Depression with anxiety (ICD-10 - F41.8) [facility] Other 01-01-2017 History general Narrative - Reported* Type Description Date Medical History Hypertension with Medical History Fibromyalgia Surgical History umbilical hernia repair 12/2016 Surgical History Lt oopherectomy 05/2017 Surgical History Breast augmentation 05/2018 Surgical History C/S 2013 Surgical History 2020 [facility] Other Evaluation noteNo Information[facility] Other Evaluation note* Diagnosis Onset Date Resolution Status Chronic insomnia acute Generalized anxiety disorder acute History of iron deficiency anemia acute 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 Post traumatic stress disorder acute Restless leg syndrome acute Sleep paralysis [facility] Work Phone: Evaluation note* Diagnosis Onset Date Resolution Status Chronic insomnia acute Generalized anxiety disorder acute History of iron deficiency anemia acute 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 Post traumatic stress disorder acute Restless leg syndrome acute Sleep paralysis acute Chronic insomnia acute Generalized anxiety disorder acute 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 Post traumatic stress disorder acute Sleep paralysis [facility] Work Phone: Evaluation note* Diagnosis Onset Date Resolution Status Chronic insomnia acute Generalized anxiety disorder acute 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 Post traumatic stress disorder acute Sleep paralysis [facility] Work Phone: evaluation note* Diagnosis Pelvic pain in female Unspecified symptom associated with female genital organs Generalized abdominal pain Abdominal pain, generalized Diarrhea, unspecified type [facility] Diagnosis Pelvic pain in female Unspecified symptom associated with female genital organs Generalized abdominal pain Abdominal pain, generalized Hormone disorder Unspecified endocrine disorder documented [facility] Other Reason for referral (narrative)* Diagnosis 1 Impaired concentrati on (R41.840) Referral Organization [address] [facility] [address] Referring Provider First Name CAROL Referring Provider Last Name ERMELINDA Referring Provider Specialty Psychiatry Referred Provider Specialty Neuropsychia try Referral Priority Routine [facility] Other Summary Purpose Family History No Family History Records FoundNo Family History Records FoundNo Family History Records FoundNo Family History Records FoundNo Family History Records FoundNo Family History Records FoundNo Family History Records Found Advance Directives No Advanced Directives Records Found Advance Directive Response Recorded Date/ Time Advance Directives No June 02 4 5:44pm Discharge Instructions * Instructions* Madie Goodman RN - 09/28/2020 INSTRUCTIONS FOR FAMILIES GOING HOME WHO HAVE NOT YET DELIVERED We've prepared this information for you to serve as a reminder and to help answer questions you mayhave when you are at home. It's important to follow all instructions given by your care provider. In addition, you should knowwhen to call your care provider, when to return to the hospital, and whether you should keep your next office or clinic appointment. NOTIFY YOUR CARE PROVIDER WHEN: ? Your contractions are 5-7 minutes apart, lasting 40 or more seconds. ? Time how often your contractions occur by counting from the beginning of one contraction to the beginning of the next contraction. ? Time the length of your contractions from the time you feel the contraction begin until you feel the contraction end. (Use a watch with a second hand). ? You notice a gush or continuous leaking of fluid from your vagina that does not stop even after you empty your bladder. ? You notice a bright red bleeding as if you were having a menstrual period. o If you had a vaginal (pelvic) exam done in the labor room; you may have a pinkish or brownish mucous discharge. This is normal. ? You feel uncomfortable for any reason. NOTE: Report any other significant problems or unusual symptoms to your care provider. This symptomlist is not all inclusive. If none of the above happens and there is no need to return to the hospital or contact your care provider, please keep your next appointment with your care provider. Preeclampsia sheet provided documented in this encounter* Instructions* Anjali Escobedo RN - 10/12/2020 Instructions For Going Home We've prepared this information for you to serve as a reminder and to help answer questions you mayhave when you are at home. It is important to follow all instructions given by your care provider. In addition, you should know when to call your care provider, when to return to the hospital, and whether you should keep your next office or clinic appointment. NOTIFY YOUR CARE PROVIDER WHEN: You have more than 6 contractions in one hour which do not stop after drinking 2-3 large glasses ofwater and lying on your side (refer to Signs of Labor - specifically what labor feels like) You notice a gush or continuous leaking of fluid from your vagina that does not stop even after youempty your bladder. You notice a bright red bleeding as if you are having a menstrual period. NOTE: If you had a vaginal (pelvic) exam done in the labor room, you may have a pinkish or brownishmucous discharge. This is normal. Decrease movement. NOTE: Report any other significant problems or unusual symptoms to your care provider. This symptomlist is not all inclusive. If none of the above happens and there is no need to return to the hospital or contact your care provider, please keep your next appointment with your care provider. HYPERTENSION IN Call 911 right away if you experience any of the following: You have pain in your chest You have severe shortness of breath You have heavy vaginal bleeding, whether or not you are having pain Call your doctor or client services vice president right away if you experience any of the following: You have a headache that won't go away You have blurred vision, spots in front of your eyes, or other visual disturbances You have severe heartburn that isn't relieved by antacids You have vaginal bleeding, whether or not you are having pain You have severe abdominal pain or back pain ~May take tylenol as needed, 1-2 tabs every 4-6 hours ~Drink plenty of water, eight to ten 12oz glasses of water daily ~Low salt diet documented in this encounter Assessments Diagnosis Delivery with history of Previous delivery, delivered, with or without mention of antepartum condition Diagnosis Supervision of high-risk of elderly multigravida Uterine scar from previous delivery Hx of delivery, currently with history of pre-term labor History of placenta abruption History of gestational hypertension 33 weeks gestation of state, incidental Headache in , antepartum, third trimester Reason for Referral Reason Sleep Study Diagnosis 1 Post-traumatic stres s disorder, unspecified (F43.10) Diagnosis 2 Depression with anxi ety (F41.8) Diagnosis 3 Sleep disturbances ( G47.9) Diagnosis 4 Insomnia, unspecifie d type (G47.00) Referral Organization [address] 4 Referring Provider First Name ROSLYN Referring Provider Last Name JENNIFER Referring Provider Specialty Nurse Pract itioner Referred Provider Specialty Sleep Medici ne Referral Priority Routine General Notes Stefania Jackson 03/01 04:04:05 PM >faxed to [facility] for sleep study Chief Complaint and Reason for Visit Chief Complaint G47.00 G47.9 F41.8 F 43.10 Reason for Visit Chronic insomnia Generalized anxiety disorder History of iron deficiency anemia 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 Post traumatic stress disorder Restless leg syndrome Sleep paralysis Chief Complaint G47.00 G47.9 F41.8 F 43.10 R53.83 Z86.2 Reason for Visit Chronic insomnia Generalized anxiety disorder History of iron deficiency anemia 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 Post traumatic stress disorder Restless leg syndrome Sleep paralysis Chief Complaint G47.00 G47.9 F41.8 F 43.10 R53.83 Z86.2 INSOMNIA/ 6-8 WEEKS Reason for Visit Chronic insomnia Generalized anxiety disorder History of iron deficiency anemia 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 DATE CREATED AUTHOR AUTHOR'S ORGANIZ ATION 07/13/2019 [facility] DATE CREATED AUTHOR AUTHOR'S ORGANIZ ATION 10/25/2020 [facility] DATE CREATED AUTHOR AUTHOR'S ORGANIZ ATION 07/26/2022 [facility] DATE CREATED AUTHOR AUTHOR'S ORGANIZ ATION 09/30/2024 [facility] DATE CREATED AUTHOR AUTHOR'S ORGANIZ ATION 11/24/2024 [facility] DATE CREATED AUTHOR AUTHOR'S ORGANIZ ATION 12/11/2024 [facility] Anjali Escobedo RN - 10/12/2020 8:28 PM CATHERINEMcAnjali Mcgee RN - 10/12/2020 6:59 PM EST Nursing Notes (unrecognized section and content) Discharge instructions discussed, copy given to pt including labor precautions/pre eclampsia signs/symptoms/ kick counts, understanding verbalized. Discharged ambulatory in stable undelivered condition to OB main entrance escorted per this RN. 35.[address] of dr scott's (dr sanford covering) to OB triage with c/o pelvic pressure over the last 24hrs and abdominal cramping. Reports increase in vaginal discharge, denies vaginal bleeding, reports + movement. Pt reports history of x2 at 36 and 37wks. documented in this encounter REASON FOR VISIT (unrecogniz ed section and content) Reason Comments Pelvic Pain Pt stated she has mcfarland d this pelvic pain since 11/08/2024 and has not gone away. Reason Comments pelvic pain Care Teams (unrecognized sec tion and content) Team Status: Active Member Role Status Dates Roslyn Rodriguez APRN REHEATER-C Primary Care Provider Active Team Status: Inactive Member Role Status Dates Garo Finley MD Attending Provider Active S tart: June 10, 2024 End: June 10, 2024 Roslyn Rodriguez APRN NP-C Primary Care Provider, Referring Provider Active Start: June 10, 2024 End: June 10, 2024 Team Status: Inactive Member Role Status Dates NON STAFF Primary Care Provider Active Start: June 10, 2024 End: June 10, 2024 Garo Finley MD Attending Provider Active S tart: June 10, 2024 End: June 10, 2024 Team Status: Inactive Member Role Status Dates Roslyn Rodriguez APRN REHEATER-C Primary Care Provider Active Start: July 20, 2024 End: July 20, 2024 Garo Finley MD Attending Provider Active S tart: July 20, 2024 End: July 20, 2024 Team Status: Inactive Member Role Status Dates Roslyn Rodriguez APRN NP-C Primary Care Provider Active Start: August End: September 20, 2024 Garo Finley MD Attending Provider Active S tart: September 20, 2024 End: September 20, 2024 Goals (unrecognized section and content) Goals may be documented in a n alternate section FOR RECORDS PERTAINING TO PATIENTS WHO ARE OR HAVE BEEN ENROLLED IN A CHEMICAL DEPENDENCY/SUBSTANCEABUSE PROGRAM, SOME INFORMATION MAY BE OMITTED. This clinical summary was aggregated from multiple sources. Caution should be exercised in using it in the provision of clinical care. This summary normalizes information from multiple sources, and as a consequence, information in this document may materially change the coding, format and clinical context of patient data. In addition, data may be omitted in some cases. CLINICAL DECISIONS SHOULD BE BASED ON THE PRIMARY CLINICAL RECORDS. [facility] [employer] [facility]. provides no warranty or guarantee of the accuracy or completeness of information in this document.
[2024-12-24 06:24] LABS: Basophils Percent Auto 0.6 % (0.2-2.0); Eosinophils Absolute Auto 0.2 10^3/uL (0.0-0.7); Eosinophils Percent Auto 3.8 % (0.9-7.0); Hematocrit 41.5 % (36.0-48.0); Hemoglobin 14.3 g/dL (12.0-16.0); Immature Granulocytes Abs Auto 0.01 10^3/uL (0.00-0.03); Immature Granulocytes Pct Auto 0.2 % (0.0-0.5); Lymphocytes Absolute Auto 2.3 10^3/uL (1.2-3.8); Lymphocytes Percent Auto 42.6 % (20.5-60.0); Mean Corpuscular HGB Conc 34.5 g/dL (29.9-35.2); Mean Corpuscular Volume 89.8 fL (81.0-99.0); Mean Platelet Volume 9.3 fL (9.5-13.5); Monocytes Absolute Auto 0.3 10^3/uL (0.3-0.8); Neutrophils Absolute Auto 2.5 10^3/uL (1.4-6.5); Neutrophils Percent Auto 46.8 % (43.0-75.0); Platelet Count 320 10^3/uL (150-450); Red Blood Count 4.62 10^6/uL (4.20-5.40); Red Cell Distribution Width 11.9 % (11.0-15.0); White Blood Count 5.3 10^3/uL (4.0-11.0)
[2024-12-24 06:53] LABS: Glucometer 93 mg/dL (74-106)
[2024-12-24] MEDS: LACTATED RINGER'S SOLUTION 1,000 ML 50 ML IV (06:57)
[2024-12-24 07:14] LABS: HCG Quantitative <1 mIU/mL
[2024-12-24] MEDS: FAMOTIDINE/PF 20 MG/2 ML VIAL IV (07:33)
--- NOTE | 2024-12-24 08:56 | P.ON_ITS ---
Brief Operative Note Date of procedure: 12/24/24 Pre-op diagnosis general: pelvic pain Post-op diagnosis: same as pre-op Procedure: NAME OF PROCEDURE: [diagnostic laparoscopy ] PROCEDURE: The patient was taken back to the Operating Room where she was placed in dorsal lithotomy position after given general anesthesia. The patient was prepped and draped in normal sterile fashion. A sponge stick was placed into the patient's vagina. Attention was turned to the patient's abdomen, where a small umbilical incision was made. The fascia was tented using Arturo clamps and the fascia was entered sharply. Confirmation of intraabdominal placement of the 10 mm port was confirmed under direct visualization using a laparoscope. The patient's abdomen was then insufflated using CO2 gas with approximately 4 liters. A second port was placed left laterally, this was done under direct visualization with a 5 mm port. Survey of the patient's abdomen demonstrated normal liver and gallbladder. Survey of the patient's pelvic anatomy demonstrated adenomyotic appearing uterus, enlarged and misshapened, slightly enlarged rt ovary with tubal remnant, unable to visualize lt tube and ovary dt significant bowel adhesions to umbilical site mesh. No endometrial implants could be noted, no evidence of any pelvic disease was seen, normal appearing pelvic cavity. All instruments were removed from the patient's abdomen. The patient's abdomen was dei nsufflated of CO2 gas. The patient tolerated the procedure well. Sponge stick was removed from the patient's vagina. The patient's infraumbilical fascia was closed using #0 Vicryl on a GI needle. The patient's skin was closed laterally and infraumbilically using 4-0 Vicryl. The patient tolerated the procedure well. Sponge, lap and needle counts were correct x 2. The patient was taken to Recovery Room in stable condition. Anesthesia: SUSYA Surgeon: Omid Mireles Gluing Crew Leader: Concepción Mcadams Estimated blood loss (mL): 5 Pathology: none sent Condition: stable Disposition: PACU Urinary Catheter Management Urinary Catheter Management Urethral: Cath placed during this visit: no
[2024-12-24] MEDS: PROMETHAZINE HCL 25 MG TABLET PO (09:59)
--- NOTE | 2024-12-24 10:00 | PC.NURSE ---
0959: pt complains of nausea,pt medicated at this time with PO Phenergan. pt not actively vomiting.
--- NOTE | 2024-12-24 11:05 | PC.NURSE ---
1035: pt ambulates to bathroom,pt voids without difficulty. clear,yellow
== END 2024-12-24 11:27 | disposition home or self-care (01) ==
PROVIDERS: Visit Provider Obstetrics & Gynecology
PROC: (CPT 00840; principal; 2024-12-24 07:30)
DX: R10.2 Pelvic and perineal pain (principal); N85.2 Hypertrophy of uterus; K66.0 Peritoneal adhesions (postprocedural) (postinfection); Z98.51 Tubal ligation status; G47.419 Narcolepsy without cataplexy
CPT/HCPCS: 00840; 49320; 36415; 82948; 84702; 85025; J1100; J1885; J2250; J2405; J2704; J3010; Q0169